=== PATIENT | female | born 1980 | race Native Hawaiian/Other Pacific Islander ===

== ENCOUNTER 2021-01-20 14:02 | Emergency (ER) | payer MEDICAID, SELFPAY ==
--- NOTE | ~2021-01-20 | CT_ITS ---
EXAMINATION: CT ABDOMEN AND PELVIS WITHOUT CONTRAST CLINICAL INFORMATION: Flank pain with history of stones COMPARISON: None TECHNIQUE: Multidetector volumetric imaging was performed from the superior aspect of the liver through the pubic symphysis. Sagittal and coronal reformatted images were obtained on the technologist's workstation. This CT examination was performed using dose optimization techniques as appropriate, variously including the following: *Automated exposure control *Adjustment of mA and/or kV according to patient size (this includes techniques or standardized protocols for targeted exams where dose is matched to indication/reason for exam; i.e. extremities or head) *Use of iterative reconstruction technique DLP: 632 mGy-cm FINDINGS: LUNG BASES: The visualized lung bases are unremarkable. Some minimal scarring is noted at the right lung base. LIVER, GALLBLADDER, AND BILIARY TREE: The liver is normal in size, shape, and attenuation. There is a tiny few millimeter-sized hepatic hypodensities seen which is consistent with a benign cyst. Even with its small size, Hounsfield units approach water. No worrisome solid focal hepatic lesion or biliary ductal dilatation is present. The gallbladder is unremarkable with no evidence of radiopaque gallstones, gallbladder wall thickening, or obvious pericholecystic inflammatory changes. PANCREAS: Unremarkable. SPLEEN: Unremarkable. ADRENAL GLANDS: A fat density 2.0 x 1.9 x 2.2 cm left adrenal mass is present consistent with a benign adenoma. There is no need for any further evaluation. The right adrenal gland appears normal. KIDNEYS AND URETERS: The kidneys are normal in size, shape, and attenuation. No hydronephrosis, hydroureter, or calculi seen. No perinephric stranding. BLADDER: Unremarkable. GASTROINTESTINAL TRACT: The small and large bowel are unremarkable. The appendix is unremarkable. ABDOMINAL WALL: No significant hernia is appreciated. LYMPH NODES: No retroperitoneal lymphadenopathy. Small right anterior preparacardiac lymph nodes within normal limits of size VASCULAR: Minimal calcific aortic plaque present. No aneurysm. PELVIC VISCERA: A normal anteverted uterus is present. An abnormal adnexal mass is not seen. No free intraperitoneal fluid is present. OSSEOUS STRUCTURES: Unremarkable. CT/CT abdomen pelvis wo con IMPRESSION: No renal calculi are present. A cause for the patient's flank pain has not been found.
[2021-01-20 14:52] VITALS: BP 107/86; PULSE 84; RESP 18; TEMP 36.2; O2SAT 99; BMI 32.2
[2021-01-20 15:45] LABS: Glucose Urine UA NEG (NEG); Leukocyte Esterase Urine NEG (NEG); Nitrite Urine NEG (NEG); Urine Blood 1+ (NEG); Urine Ketones NEG (NEG); Urine Protein NEG (NEG-TRACE)
[2021-01-20 15:47] LABS: Appearance Urine CLEAR; Color Urine YELLOW
[2021-01-20 16:00] VITALS: BP 111/68; PULSE 70; RESP 16; TEMP 37.1; O2SAT 99
[2021-01-20 16:02] LABS: MANUAL DIFF FLAG NO
[2021-01-20 16:09] LABS: Bacteria Urine TRACE /LPF; Mucus Urine TRACE /LPF; Squamous Epithelial Cell Urine 1+ /LPF
[2021-01-20 16:14] LABS: Basophils Absolute Auto 0.1 X10*3/uL (0.0-0.2); Basophils Percent Auto 0.4 % (0-2); Eosinophils Absolute Auto 0.3 X10*3/uL (0.0-0.4); Eosinophils Percent Auto 2.5 % (0-4); Hemoglobin 12.6 g/dl (12.0-16.0); Imm Gran Abs Auto 0.06 X10*3/uL (0.00-0.03); Imm Gran Pct Auto 0.5 % (0.0-0.4); Lymphocytes Absolute Auto 4.2 X10*3/uL (1.2-4.9); Lymphocytes Percent Auto 33.1 % (20-40); Mean Corpuscular HGB Conc 34.1 g/dl (31.0-35.0); Mean Corpuscular Volume 82.2 fL (80-98); Mean Platelet Volume 10.5 fL (9.4-12.3); Monocytes Percent Auto 7.8 % (2-11); Neutrophils Percent Auto 55.7 % (45-73); Platelet Count 238 X10*3/uL (160-400); Red Cell Distribution Width 14.7 % (11.0-16.0); White Blood Count 12.6 X10*3/uL (4.8-10.8)
--- NOTE | 2021-01-20 16:31 | ED.ABDPAIN ---
HPI - Abdominal Pain General Chief Complaint: General Medical Stated Complaint: Passing kidney stone Time Seen by Provider: 01/20/21 16:16 Source: patient Mode of arrival: ambulatory Limitations: no limitations History of Present Illness HPI narrative: Patient with history of kidney stone 10 years ago woke up at 03:00 with right flank pain related to the right lower abdomen with slight nausea no vomiting no diarrhea no hematuria no dysuria frequency no abdominal distension no fever chills no cough or shortness of breath Related Data Allergies Allergy/AdvReac Type Severity Reaction Status Date / Time codeine [Codeine] Allergy Unknown UNKNOWN Verified 01/20/21 14:51 sulfacetamide [Sulfacetamide] Allergy Unknown UNKNOWN Verified 01/20/21 14:51 Codeine Sulfate Allergy Unknown Palpitation Uncoded 01/20/21 14:51 s Sulfa Allergy Unknown Unknown Uncoded 01/20/21 14:51 Review of Systems Review of Systems Constitutional : No Weight loss, No Fever, No Chills ENT/Mouth : No sore throat, No Rhinorrhea Eyes: No Eye Pain, No Swelling Cardiovascular : No Chest Pain, no palpitations Respiratory : No Cough, No Sputum, no shortness of breath Gastrointestinal : + Nausea, No Vomiting, No Diarrhea, + abdominal Pain, no black stools Genitourinary : No Dysuria, No Urinary Frequency Musculoskeletal : No joint pain, No Myalgias, No Joint Swelling Skin : No Skin Lesions, No rash Neuro : No Weakness, No Numbness, No Dizziness, No Headache Psych : No Anxiety/Panic, No Depression Heme/Lymph: No Bruising, No Lymphadenopathy Endocrine : No Polyuria, No Polydipsia All other systems reviewed and are negative Physical Exam Vital Signs: Vital Signs: Last Vital Signs Temp 98.3 F 01/20/21 18:00 Pulse 71 01/20/21 18:00 Resp 16 01/20/21 18:00 BP 115/66 01/20/21 18:00 Pulse Ox 99 01/20/21 18:00 Body Mass Index 32.2 Appearance: Alert. Oriented X3. In mild distress. Eyes: PERRLA, No Nystagmus ENT: Pharynx normal. Oral Mucosa moist Neck: Normal inspection. Neck supple. CVS: Normal heart rate and rhythm. Pulses normal. Respiratory: No respiratory distress. Equal air entry bilateral, no wheezing/rales/rhonchi Abdomen: Soft and nontender. Bowel sounds are present, no mass palpable, moderate right CVA tenderness Skin: Skin warm and dry. Normal skin color. Normal skin turgor. Extremities: No lower extremity edema. No calf tenderness Neuro: Oriented X 3. No motor deficit. No sensory deficit.No cerebellar signs , cranial nerves II-XII intact MDM - Abdominal Pain MDM Narrative Medical decision making narrative: Patient's CT scan negative for any kidney stone urine showed few RBCs likely patient passed stone. Patient denies any significant pain now Lab Data Attestation: I reviewed the patient's lab results. Result diagrams: 01/20/21 15:58 01/20/21 15:58 Labs: Lab Results 01/20/21 01/20/21 01/20/21 Range/Units 15:28 15:58 15:58 WBC 12.6 H (4.8-10.8) X10*3/uL RBC 4.50 (4.20-5.50) X10*6/uL Hgb 12.6 (12.0-16.0) g/dl Hct 37.0 (37-47) % MCV 82.2 (80-98) fL MCH 28.0 (27.0-33.0) pg MCHC 34.1 (31.0-35.0) g/dl RDW 14.7 (11.0-16.0) % Plt Count 238 (160-400) X10*3/uL MPV 10.5 (9.4-12.3) fL Immature Gran % (Auto) 0.5 H (0.0-0.4) % Neut % (Auto) 55.7 (45-73) % Lymph % (Auto) 33.1 (20-40) % [place] % (Auto) 7.8 (2-11) % Eos % (Auto) 2.5 (0-4) % Baso % (Auto) 0.4 (0-2) % Lymph # (Auto) 4.2 (1.2-4.9) X10*3/uL [place] # (Auto) 1.0 (0.1-1.2) X10*3/uL Eos # (Auto) 0.3 (0.0-0.4) X10*3/uL Baso # (Auto) 0.1 (0.0-0.2) X10*3/uL Abs Immat Gran (auto) 0.06 H (0.00-0.03) X10*3/uL Absolute Neuts (auto) 7.0 (2.0-8.3) X10*3/uL Absolute Nucleated RBC 0.000 (0.0-0.012) X10*3/uL Nucleated RBC % (auto) 0.0 (0.0-0.2) /100WBC Hold Blue Top Sodium 138 (135-145) mmol/L Potassium 3.5 (3.3-5.1) mmol/L Chloride 105 (96-108) mmol/L Carbon Dioxide 25 (22-29) mmol/L Anion Gap 12 (12-20) BUN 11 (9-16) mg/dL Creatinine 0.64 (0.5-1.4) mg/dL Estim Creat Clear Calc 105.6 Estimated GFR > 60 Random Glucose 95 (60-115) mg/dL Calcium 8.9 (8.4-10.2) mg/dL Total Bilirubin < 0.2 (0.0-1.0) mg/dL AST 14 (5-31) U/L ALT 16 (0-31) U/L Alkaline Phosphatase 80 (39-117) U/L Total Protein 6.6 (6.5-8.0) g/dL Albumin 3.8 (3.5-5.0) g/dL Urine Color YELLOW Urine Appearance CLEAR Urine pH 6.0 (5.0-8.0) Ur Specific [place] 1.010 (1.005-1.025) Urine Protein NEG (NEG-TRACE) MG/DL Urine Glucose (UA) NEG (NEG) MG/DL Urine Ketones NEG (NEG) MG/DL Urine Blood 1+ H (NEG) Urine Nitrite NEG (NEG) Ur Leukocyte Esterase NEG (NEG) Urine RBC 1-4 (0) /HPF Urine WBC 1-4 (0-4) /HPF Ur Squamous Epith Cells 1+ /LPF Urine Bacteria TRACE /LPF Urine Mucus TRACE /LPF 01/20/21 Range/Units 15:58 WBC (4.8-10.8) X10*3/uL RBC (4.20-5.50) X10*6/uL Hgb (12.0-16.0) g/dl Hct (37-47) % MCV (80-98) fL MCH (27.0-33.0) pg MCHC (31.0-35.0) g/dl RDW (11.0-16.0) % Plt Count (160-400) X10*3/uL MPV (9.4-12.3) fL Immature Gran % (Auto) (0.0-0.4) % Neut % (Auto) (45-73) % Lymph % (Auto) (20-40) % [place] % (Auto) (2-11) % Eos % (Auto) (0-4) % Baso % (Auto) (0-2) % Lymph # (Auto) (1.2-4.9) X10*3/uL [place] # (Auto) (0.1-1.2) X10*3/uL Eos # (Auto) (0.0-0.4) X10*3/uL Baso # (Auto) (0.0-0.2) X10*3/uL Abs Immat Gran (auto) (0.00-0.03) X10*3/uL Absolute Neuts (auto) (2.0-8.3) X10*3/uL Absolute Nucleated RBC (0.0-0.012) X10*3/uL Nucleated RBC % (auto) (0.0-0.2) /100WBC Hold Blue Top SEE NOTE Sodium (135-145) mmol/L Potassium (3.3-5.1) mmol/L Chloride (96-108) mmol/L Carbon Dioxide (22-29) mmol/L Anion Gap (12-20) BUN (9-16) mg/dL Creatinine (0.5-1.4) mg/dL Estim Creat Clear Calc Estimated GFR Random Glucose (60-115) mg/dL Calcium (8.4-10.2) mg/dL Total Bilirubin (0.0-1.0) mg/dL AST (5-31) U/L ALT (0-31) U/L Alkaline Phosphatase (39-117) U/L Total Protein (6.5-8.0) g/dL Albumin (3.5-5.0) g/dL Urine Color Urine Appearance Urine pH (5.0-8.0) Ur Specific [place] (1.005-1.025) Urine Protein (NEG-TRACE) MG/DL Urine Glucose (UA) (NEG) MG/DL Urine Ketones (NEG) MG/DL Urine Blood (NEG) Urine Nitrite (NEG) Ur Leukocyte Esterase (NEG) Urine RBC (0) /HPF Urine WBC (0-4) /HPF Ur Squamous Epith Cells /LPF Urine Bacteria /LPF Urine Mucus /LPF Discharge Plan Discharge Clinical Impression: Acute right flank pain Patient Disposition: Home, Self-Care Instructions: Flank Pain (ED) Additional Instructions: Your CT scan is negative for kidney stones likely either uou had musculoskeletal pain or you passed stone take ibuprofen for pain as needed [facility] Social History Social History Alcohol intake: never Patient Tobacco Use Status: Never used Tobacco Smoked in Last 30 Days: No Use of substances other than those prescribed or required for medical reasons: No Advance Directives: No Advance Directives Information Provided: No Patient : No
[2021-01-20 16:37] LABS: Alanine Aminotransferase 16 U/L (0-31); Albumin Level 3.8 g/dL (3.5-5.0); Alkaline Phosphatase 80 U/L (39-117); Anion Gap 12 (12-20); Aspartate Amino Transferase 14 U/L (5-31); Bilirubin Total < 0.2 mg/dL (0.0-1.0); Blood Urea Nitrogen 11 mg/dL (9-16); Calcium 8.9 mg/dL (8.4-10.2); Carbon Dioxide 25 mmol/L (22-29); Chloride 105 mmol/L (96-108); Creatinine Clr Calc Pharmacy 105.6; Estimated Glomerular Filt Rate > 60; Glucose Random 95 mg/dL (60-115); Potassium 3.5 mmol/L (3.3-5.1); Sodium 138 mmol/L (135-145); Total Protein 6.6 g/dL (6.5-8.0)
[2021-01-20] MEDS: Ketorolac Tromethamine 30 MG/ML VIAL IVPUSH (17:18)
--- NOTE | 2021-01-20 17:18 | PC.NURSE ---
verbal order from dr swanson to hang IVF 1000ml ns.
[2021-01-20 18:00] VITALS: BP 115/66; PULSE 71; RESP 16; TEMP 36.8; O2SAT 99
== END 2021-01-20 18:55 | disposition home or self-care (01) ==
PROVIDERS: Emergency Provider Internal Medicine; PCP Pediatrics
DX: R10.9 Unspecified abdominal pain (principal); Z79.899 Other long term (current) drug therapy
CPT/HCPCS: 36415; 74176; 80053; 81001; 85025; 96372; 99284; J1885

== ENCOUNTER 2021-01-22 07:18 | Emergency (ER) | payer MEDICAID, SELFPAY ==
[2021-01-22 07:36] VITALS: BP 134/87; PULSE 76; RESP 16; TEMP 36.6; O2SAT 97; BMI 32.2
--- NOTE | 2021-01-22 07:39 | ED.EXTPRO ---
HPI - Extremity Problem General Chief complaint: Extremity Injury, Upper Stated complaint: R SHOULDER PAIN Time Seen by Provider: 01/22/21 07:36 Source: patient Mode of arrival: ambulatory Limitations: no limitations History of Present Illness HPI Narrative: R neck pain since last night feels similar to prior pinched nerve in neck a few years back from injury - no injury this time, here reporting pain MD Complaint: other (neck pain radiating into shoulder) Onset (ago): day(s) (2) Pain Consistency: constant Location: other (right neck) Quality: stabbing Radiation: distal Relieving factors: nothing Exacerbating factors: range of motion and palpation Associated symptoms: denies other symptoms Context: other (hx of pinched nerve in the past) Related Data Previous Rx's Medication Instructions Recorded diazepam [Valium] 5 mg PO TID PRN #10 tab 01/22/21 ibuprofen 600 mg PO Q6H PRN #30 tab 01/22/21 lidocaine 1 patch TOPICAL DAILY PRN #10 ea 01/22/21 Allergies Allergy/AdvReac Type Severity Reaction Status Date / Time codeine [Codeine] Allergy Unknown UNKNOWN Verified 01/20/21 14:51 sulfacetamide [Sulfacetamide] Allergy Unknown UNKNOWN Verified 01/20/21 14:51 Codeine Sulfate Allergy Unknown Palpitation Uncoded 01/20/21 14:51 s Sulfa Allergy Unknown Unknown Uncoded 01/20/21 14:51 Review of Systems Review of Systems: Constitutional : No Fever, No Chills ENT/Mouth : No Ear Pain, No Hoarseness, No sore throat, pos R sided neck pain Eyes: No Eye Pain, No Swelling, No Redness, No Foreign Body Cardiovascular : No Chest Pain, No SOB Respiratory : No Cough, No Dyspnea Gastrointestinal : No Nausea, No Vomiting, No Diarrhea, No abdominal Pain Genitourinary : No Dysuria, No Hematuria Musculoskeletal : no joint pain, No Myalgias, No Joint Swelling Skin : No Skin lacerations, No rash Neuro : No Weakness, No Numbness, No Loss of Consciousness, No Dizziness, No Headache PMFSH Past Medical History Attestation statement: The following information was validated with the patient. Medical History Asthma Social History Social History Alcohol intake: never Patient Tobacco Use Status: Never used Tobacco Advance Directives: Yes Advance Directives Information Provided: Yes Advance Directives on File: No Physical Exam Vital Signs: Vital Signs: Last Vital Signs Temp 97.9 F 01/22/21 07:36 Pulse 76 01/22/21 07:36 Resp 16 01/22/21 07:36 BP 134/87 01/22/21 07:36 Pulse Ox 97 01/22/21 07:36 Body Mass Index 32.2 Appearance: Alert. Oriented X3. No acute distress. Eyes: Pupils equal, round and reactive to light. ENT: Pharynx normal. Neck: R sided neck pain with spasm of trapezius, distal NV intact, no mass felt, R sided + spurlings CVS: Normal heart rate and rhythm. Pulses normal. Respiratory: No respiratory distress. Breath sounds normal. Abdomen: Soft and nontender. Skin: Skin warm and dry. Normal skin color. Normal skin turgor. Extremities: No lower extremity edema. No calf ttp Neuro: Oriented X 3. No motor deficit. No sensory deficit. MDM - Extremity (Nontraumatic) MDM Narrative Medical decision making narrative: 40 yo female with asthma, prior R sided cervical radiculopathy one day of R sided neck pain, NV intact no trauma no deficits, pain control refer to PCP for MRI if no improvement Discharge Plan Discharge Clinical Impression: Cervical radiculopathy Patient Disposition: Home, Self-Care Instructions: Cervical Radiculopathy (ED) Additional Instructions: return to ED for any worsening symptoms or concerns Prescriptions: New lidocaine 4 % adhesive patch,medicated 1 patch topical DAILY PRN (Reason: pain) Qty: 10 RF: 0 ibuprofen 600 mg tablet 600 mg PO Q6H PRN (Reason: pain) Qty: 30 RF: 0 diazepam [Valium] 5 mg tablet 5 mg PO TID PRN (Reason: muscle spasm) Qty: 10 RF: 0 Referrals: Dina Cartagena MD [Primary Care Provider] - 5 days (if not better) Stand Alone Forms: Work/School Release
[2021-01-22] MEDS: Ketorolac Tromethamine 60 MG/2 ML VIAL IM (07:43)
[2021-01-22] MEDS: Lidocaine 4 % Patch ADH..PATCH 1 PATCH TRANSDERMA (07:43)
[2021-01-22] MEDS: diazePAM 5 MG TABLET PO (07:43)
== END 2021-01-22 07:57 | disposition home or self-care (01) ==
PROVIDERS: Emergency Provider Emergency Medicine; PCP Pediatrics
DX: M54.12 Radiculopathy, cervical region (principal); J45.909 Unspecified asthma, uncomplicated
CPT/HCPCS: 96372; 99283; 99284; J1885

== ENCOUNTER 2021-05-11 15:07 | Outpatient (REF) | payer MEDICAID, SELFPAY ==
--- NOTE | ~2021-05-11 | MM_ITS ---
EXAMINATION: MM SCREENING DIGITAL BREAST TOMOSYNTHESIS, BILATERAL CLINICAL INFORMATION: Screening. Asymptomatic. Patient's mother and grandmother with history of breast cancer. The lifetime risk of breast cancer based on the Tyrer-Cuzick Model is 21.7%. Additional annual screening with breast MRI may be of benefit in women with a Score of 20% or greater. COMPARISON: Mammography: None TECHNIQUE: Digital breast tomosynthesis is performed in both the craniocaudal and mediolateral oblique views along with computer-aided detection (CAD). Synthesized 2D images are generated from the tomosynthesis. FINDINGS: The breasts are extremely dense, which lowers the sensitivity of mammography (ACR BI-RADS breast composition Category d). No abnormal dominant mass or suspicious grouping of microcalcifications is identified within the right breast. Within the deep lateral aspect of the left breast, there is a circumscribed approximately 8 x 5 mm density approximately 6 cm from the nipple. MM/MM tomosynthesis screening BI IMPRESSION: Left breast density for which spot compression film and possible ultrasound are recommended. ASSESSMENT: BI-RADS 0: Incomplete - Need Additional Imaging Evaluation RECOMMENDATION: 1. Additional views of the left breast. 2. Targeted ultrasound if warranted after review of the additional views. 3. Radiology department staff will contact the patient for additional imaging. This patient's information was entered into a reminder system with a target due date for their next mammogram.
== END 2021-05-11 15:08 | disposition home or self-care (01) ==
LOC: HO.MAMMO 15:07
PROVIDERS: PCP Pediatrics; Visit Provider Advanced Practice Midwife
DX: Z12.31 Encounter for screening mammogram for malignant neoplasm of breast (principal)
CPT/HCPCS: 77063; 77067

== ENCOUNTER 2021-05-25 13:20 | Emergency (ER) | payer MEDICAID, SELFPAY ==
[2021-05-25 13:23] VITALS: BP 152/93; PULSE 86; RESP 16; TEMP 36.8; O2SAT 100; BMI 31.8
--- NOTE | 2021-05-25 14:03 | ED.FEMALEGU ---
HPI - Female Genitourinary General Chief complaint: Urogenital-Female Stated complaint: ?std Time Seen by Provider: 05/25/21 13:44 Source: patient Mode of arrival: ambulatory Limitations: no limitations History of Present Illness HPI Narrative: 40-year-old female here with complaints of vaginal discharge for 24 hours. No pelvic pain or urinary symptoms. No fevers or chills. Patient has history of bacterial vaginosis and feels this may be similar. She was tested 1 month ago for all STDs and negative. She has 1 male partner. Related Data Previous Rx's Medication Instructions Recorded diazepam 5 mg tablet (Valium) 5 mg PO TID PRN #10 tab 01/22/21 ibuprofen 600 mg tablet 600 mg PO Q6H PRN #30 tab 01/22/21 lidocaine 4 % topical patch 1 patch TOPICAL DAILY PRN #10 ea 01/22/21 Allergies Allergy/AdvReac Type Severity Reaction Status Date / Time codeine [Codeine] Allergy Unknown UNKNOWN Verified 01/20/21 14:51 sulfacetamide [Sulfacetamide] Allergy Unknown UNKNOWN Verified 01/20/21 14:51 Codeine Sulfate Allergy Unknown Palpitation Uncoded 01/20/21 14:51 s Sulfa Allergy Unknown Unknown Uncoded 01/20/21 14:51 Review of Systems Review of Systems: Yes all other systems are reviewed and are negative Constitutional: Constitutional: Reports no additional constitutional complaints, Denies body ache(s), Denies chills, Denies fever(s), Denies headache(s) and Denies weakness Eyes: Eyes: Reports no additional eye complaints and Denies change in vision ENT: Reports system reviewed and no additional complaints, except as documented, Denies dizziness, Denies headache(s), Denies nasal congestion, Denies nasal discharge and Denies neck pain Cardiovascular: Cardiovascular: Reports no additional cardiovascular complaints, Denies chest pain, Denies leg edema and Denies dyspnea Respiratory: Respiratory: Reports no additional respiratory complaints, Denies cough and Denies dyspnea Gastrointestinal: Gastrointestinal: Reports no additional gastrointestinal complaints, Denies abdominal pain, Denies diarrhea, Denies nausea and Denies vomiting Genitourinary: Genitourinary: Reports no additional female genitourinary complaints, Denies pelvic pain, Denies urinary incontinence and Reports vaginal discharge Musculoskeletal: Musculoskeletal: Reports no additional musculoskeletal complaints, Denies back pain, Denies arthralgias, Denies joint swelling, Denies neck pain, Denies numbness and Denies tingling Integumentary/Breasts: Skin/Breast: Reports system reviewed and no additional complaints, except as docu and Denies rash Neurologic: Reports system reviewed and no additional complaints, except as documented, Denies Abnormal speech present, Denies dizziness, Denies headache(s), Denies numbness, Denies tingling and Denies weakness PMFSH Past Medical History Attestation statement: The following information was validated with the patient. Source: old records reviewed and nursing notes reviewed Medical History Asthma Social History Social History Alcohol intake: never Patient Tobacco Use Status: Never used Tobacco Advance Directives: No Advance Directives Information Provided: No Physical Exam Vital Signs: Vital Signs: Last Vital Signs Temp 98.2 F 05/25/21 13:23 Pulse 86 05/25/21 13:23 Resp 16 05/25/21 13:23 BP 152/93 H 05/25/21 13:23 Pulse Ox 100 05/25/21 13:23 Body Mass Index 31.8 Const: General: cooperative, healthy appearing, comfortable and no acute distress Orientation/consciousness: patient oriented x3 Limitations: no limitations HENMT: Head: Yes normal to inspection Ears: hearing grossly normal bilaterally General nose exam: Normal external nose present Face and sinus: Yes normal facial exam Mouth: Normal oral and palatal mucosa present Throat: Yes posterior oropharynx normal Eyes: General: appearance normal, both eyes and all related structures Pupils: Equal, round and reactive pupils present Neck: Neck: Yes normal visual inspection Chest: Chest palpation & inspection: normal inspection of the chest Resp: Effort & Inspection: normal respiratory effort Auscultation: clear to auscultation bilaterally Cardio: Rate: regular rate Rhythm: regular rhythm Peripheral pulses: Peripheral pulses 2+ throughout GI: Inspection: Yes normal to inspection Palpation (GI): Soft to palpation and nontender Auscultation: normal bowel sounds : Other: deferred by patient Back/Spine/Pelvis: Thoracic/Lumbar Spine: thoracic and lumbar spine normal to inspection Skin: General skin exam: no rashes or lesions noted Neuro: General: patient oriented x3, no focal motor deficits and normal sensation to monofilament Cranial nerves: Yes Equal, round and reactive pupils present Cognition (Neuro): normal cognition Speech: No Abnormal speech present Gait exam (Neuro): Normal gait present Motor exam (neuro): 5/5 motor strength present throughout Extrem: General: Yes normal to inspection Course Course Course Narrative: Vaginal discharge for 24 hours. Less concerned about STDs but will test. Will hold on treatment for STDs and patient is aware she will need to return for treatment if positive. Reviewed worrisome signs and symptoms of when to return to the emergency department. Comfortable discharge home. MDM - Female Genitourinary Medical Records Attestation: I reviewed the patient's medical records. Lab Data Attestation: I reviewed the patient's lab results. Labs: Lab Results 05/25/21 05/25/21 Range/Units 14:04 14:04 Urine Color STRAW Urine Appearance CLEAR Urine pH 6.0 (5.0-8.0) Ur Specific [place] <= 1.005 (1.005-1.025) Urine Protein NEG (NEG-TRACE) MG/DL Urine Glucose (UA) NEG (NEG) MG/DL Urine Ketones NEG (NEG) MG/DL Urine Blood 1+ H (NEG) Urine Nitrite NEG (NEG) Ur Leukocyte Esterase NEG (NEG) Urine Test NEGATIVE (NEGATIVE) Discharge Plan Discharge Clinical Impression: Vaginal discharge Patient Disposition: Home, Self-Care Instructions: Vaginal Discharge (ED) Additional Instructions: We will call you tomorrow if positive results Prescriptions: No Action lidocaine 4 % adhesive patch,medicated 1 patch topical DAILY PRN (Reason: pain) Qty: 10 RF: 0 ibuprofen 600 mg tablet 600 mg PO Q6H PRN (Reason: pain) Qty: 30 RF: 0 diazepam [Valium] 5 mg tablet 5 mg PO TID PRN (Reason: muscle spasm) Qty: 10 RF: 0 Referrals: Dina Cartagena MD [Primary Care Provider] - 2 days Interventions: ED Discharge Assessment Last Done: 05/25/21 14:22 Discharge Date/Time: 05/25/21 14:22
[2021-05-25 14:12] LABS: Appearance Urine CLEAR; Color Urine STRAW; Glucose Urine UA NEG (NEG); Leukocyte Esterase Urine NEG (NEG); Nitrite Urine NEG (NEG); Specific Gravity - Urine <= 1.005 (1.005-1.025); UACC Culture Trigger NO; Urine Blood 1+ (NEG); Urine Ketones NEG (NEG); Urine Protein NEG (NEG-TRACE)
[2021-05-25 14:16] LABS: UPreg QC Valid YES; Urine Pregnancy NEGATIVE (NEGATIVE)
[2021-05-25 14:32] LABS: RBC Urine 0-2 /HPF (0); Squamous Epithelial Cell Urine TRACE /LPF; WBC Urine 0-2 /HPF (0-4)
[2021-05-26 05:34] LABS: CT PCR NOT DETECTED (Not Detect.); NG PCR NOT DETECTED (Not Detect.)
[2021-05-26 09:45] LABS: BV Int Neg Control Negative (Negative); BV Int Pos Control Positive (Positive)
== END 2021-05-25 14:22 | disposition home or self-care (01) ==
PROVIDERS: Nurse Practitioner Family; Emergency Provider Emergency Medicine; PCP Pediatrics
DX: N89.8 Other specified noninflammatory disorders of vagina (principal); Z79.899 Other long term (current) drug therapy; Z20.2 Contact with and (suspected) exposure to infections with a predominantly sexual mode of transmission
CPT/HCPCS: 81001; 81025; 87480; 87491; 87510; 87591; 87660; 99283; 99284

== ENCOUNTER 2021-05-28 13:48 | Outpatient (REF) | payer MEDICAID, SELFPAY ==
--- NOTE | ~2021-05-28 | MM_ITS ---
EXAMINATION: MM DIAGNOSTIC DIGITAL BREAST TOMOSYNTHESIS, LEFT CLINICAL INFORMATION: Recall from baseline mammography for question of smooth nodular asymmetry posterior central 3:00 left breast on CC view. Family history breast cancer mother (age 35) and grandmother. TC score 22%. COMPARISON: Mammography: 05/11/2021 (baseline) TECHNIQUE: Digital breast tomosynthesis is performed. 2D images are generated from the tomosynthesis. The following views are obtained: Rolled CC x2, spot CC FINDINGS: The breasts are heterogeneously dense, which may obscure small masses (ACR BI-RADS breast composition Category c). Breast tissue composition borders on extremely dense. The additional views show no focal mass or architectural abnormality. Results are discussed with the patient at time of visit. Additional adjunct screening with breast MRI discussed with the patient as well as genetic testing. MM/MM tomosynthesis added views L IMPRESSION: Additional views show no mass or architectural abnormality. ASSESSMENT: BI-RADS 1: Negative RECOMMENDATION: 1. Given the family history and dense breast parenchymal pattern, additional adjunct screening with breast MR should be considered as well as genetic testing. 2. Otherwise, routine annual screening mammography. This patient's information was entered into a reminder system with a target due date for their next mammogram.
== END 2021-05-28 13:49 | disposition home or self-care (01) ==
LOC: HO.MAMMO 13:48
PROVIDERS: PCP Pediatrics; Visit Provider Advanced Practice Midwife
DX: R92.2 Inconclusive mammogram (principal)
CPT/HCPCS: 77061; 77065

== ENCOUNTER 2022-04-24 12:53 | Emergency (ER) | payer MEDICAID, SELFPAY ==
--- NOTE | ~2022-04-24 | XR_ITS ---
EXAMINATION: XR KNEE, RIGHT CLINICAL INFORMATION: Pain COMPARISON: None TECHNIQUE: Four views of the right knee. FINDINGS: Bones and soft tissues are normal. No fracture or joint effusion. Alignment is anatomic. Joint spaces are well maintained. No abnormal soft tissue calcification. XR/XR knee RT 4V IMPRESSION: No significant osseous changes to explain patient's pain symptoms.
[2022-04-24 13:00] VITALS: BP 136/88; PULSE 91; RESP 17; TEMP 36.6; O2SAT 98; BMI 32.8
--- NOTE | 2022-04-24 13:50 | ED.LOWEXIN ---
HPI - Extremity Injury (Lower) General Chief Complaint: Extremity Injury, Lower Stated Complaint: R knee pain Time Seen by Provider: 04/24/22 13:42 Source: patient Mode of arrival: ambulatory Limitations: no limitations History of Present Illness HPI Narrative: 41-year-old female presenting to the ED with complaints of right knee pain for the past few weeks worse when going up the stairs or going down the stairs. She reports that a few weeks ago while she was at work she was walking and she reports she believes she may return to quickly where she felt like the rest of her body turned and her right knee did not and since then she has been having pain. She denies any falls. She denies any swelling of the knee, she denies any fevers, dizziness, headaches, neck pain/stiffness, chest pain or shortness back on the dyspnea on exertion, orthopnea, palpitations, paresthesias, lower extremity edema or calf tenderness, recent travel or sick contacts, recent falls or trauma to the site, rashes, weakness or any other symptoms complaints or concerns at this time. MD complaint: knee injury Onset (ago): week(s) (Few weeks ago) Type of Injury: unknown Place: work Severity: moderate Relieving factors: nothing Exacerbating factors: movement, palpation and other (Walking up and down the stairs) Context: other (twist sensation ) Associated symptoms: snap/pop sensation and ambulatory Other symptoms: none Treatments prior to arrival: cold therapy, heat therapy and other (Motrin Tylenol no symptomatic relief) Related Data Previous Rx's Medication Instructions Recorded diazepam 5 mg tablet (Valium) 5 mg PO TID PRN muscle spasm #10 01/22/21 tabs ibuprofen 600 mg tablet 600 mg PO Q6H PRN pain #30 tabs 01/22/21 lidocaine 4 % topical patch 1 patch topical DAILY PRN pain #10 01/22/21 ea acetaminophen 650 mg 650 mg PO Q12H PRN pain #14 tabs 04/24/22 tablet,extended release (Arthritis Pain Relief (acetaminophen) ER) ibuprofen 800 mg tablet 800 mg PO Q8H PRN pain #14 tabs 04/24/22 tramadol 50 mg tablet 50 mg PO BID PRN pain #14 tabs 04/24/22 Allergies Allergy/AdvReac Type Severity Reaction Status Date / Time codeine [Codeine] Allergy Unknown UNKNOWN Verified 01/20/21 14:51 sulfacetamide [Sulfacetamide] Allergy Unknown UNKNOWN Verified 01/20/21 14:51 Codeine Sulfate Allergy Unknown Palpitation Uncoded 01/20/21 14:51 s Sulfa Allergy Unknown Unknown Uncoded 01/20/21 14:51 Review of Systems Review of Systems: Constitutional : No Weight loss, No Fever, No Chills, No Night Sweats, No Fatigue, No Malaise ENT/Mouth : No Hearing loss, No Ear Pain, No Nasal Congestion, No Sinus Pain, No Hoarseness, No sore throat, No Rhinorrhea, No Swallowing Difficulty Eyes: No Eye Pain, No Swelling, No Redness, No Foreign Body, No Discharge, No Vision Changes Cardiovascular : No Chest Pain, No SOB, No Dyspnea on Exertion, No Orthopnea, No Edema, No Palpitations Respiratory : No Cough, No Sputum, No Wheezing, No Smoke Exposure, No Dyspnea Gastrointestinal : No Nausea, No Vomiting, No Diarrhea, No Constipation, No abdominal Pain, No Hematochezia, No Melena Genitourinary : no irregular bleeding, No Dysuria, No Urinary Frequency, No Hematuria, No Urinary Incontinence, No Urgency, No Flank Pain, No Urinary Flow Changes, No Hesitancy Musculoskeletal : + right knee joint pain, No Myalgias, No Joint Swelling Skin : No Skin Lesions, No rash Neuro : No Weakness, No Numbness, No Paresthesias, No Loss of Consciousness, No Dizziness, No Headache Psych : No Anxiety/Panic, No Depression, No SI/HI/AH/VH, No Social Issues, Heme/Lymph: No Bruising, No Bleeding,No Lymphadenopathy Endocrine : No Polyuria, No Polydipsia, No Temperature Intolerance Yes all other systems are reviewed and are negative [facility] Past Medical History Attestation statement: The following information was validated with the patient. Source: old records reviewed and nursing notes reviewed Medical History Asthma Social History Social History Alcohol intake: never Patient Tobacco Use Status: Never used Tobacco Advance Directives: No Advance Directives Information Provided: Yes Physical Exam Vital Signs: Vital Signs: Last Vital Signs Temp 98 F 04/24/22 13:00 Pulse 91 04/24/22 13:00 Resp 17 04/24/22 13:00 BP 136/88 04/24/22 13:00 Pulse Ox 98 04/24/22 13:00 O2 Del Method 04/24/22 13:00 BMI result Body Mass Index 32.8 vital signs have been reviewed as normal and appeared to be correct. Blood pressure normal. Heart rate normal. Respiration rate normal. Temperature normal. Oxygen saturation normal. Appearance: Alert. Oriented X3. No acute distress. Head: Normal external exam. Normocephalic. Atraumatic. Eyes: PERRLA. EOMI. Conjunctiva and sclera normal. Eyelids normal. ENT: Pharynx normal. Uvula midline. Moist mucous membranes. No lesions/ulcerations or masses noted on the tongue. Normal voice. No trismus noted. No drooling noted. No muffled voice noted. Neck: Normal inspection. Neck supple. FROM. No adenopathy. Thyroid Normal. No tracheal deviation noted. No crepitus is noted. No meningeal signs. No neck mass noted. CVS: Normal heart rate and rhythm. Heart sound normal. Pulses normal throughout. No murmurs/rales/gallops. Respiratory: No respiratory distress. Painless inspiration. Breath sounds normal. No wheezes/rales/rhonchi noted. Chest nontender. No crepitus is noted. No accessory muscle usage noted or decreased air movement noted. No signs of trauma. Back: Full range of motion noted. Skin: Skin warm and dry. Normal skin color. Normal skin turgor. No rashes/lesions/lacerations noted. Extremities: Patient mild tenderness palpation to medial and lateral aspect of the right knee with mild soft tissue swelling no obvious joint effusion or obvious ligamentous or tendon injury noted. Not consistent with muscle rupture. She has full range of motion of the right knee. No laxity noted. No lower extremity edema or calf tenderness noted. No rashes noted. No signs of trauma noted. Otherwise all other extremities exhibit normal range of motion nontender. Neuro: Oriented X 3. No motor deficit. No sensory deficit. Reflexes normal. Normal steady gait. No focal neuro deficits noted. CN's II-XII intact bilaterally? Vascular: + radial pulses/+ 2 distal pedal pulses/+2 dorsalis pedis b/l. Normal cap refill. No cyanosis noted to upper extremity nails and lower extremity toes nails. Course Course Course Narrative: 41-year-old female presenting to the ED with complaints of right knee pain for the past few weeks worse when going up the stairs or going down the stairs. She reports that a few weeks ago while she was at work she was walking and she reports she believes she may return to quickly where she felt like the rest of her body turned and her right knee did not and since then she has been having pain. On exam she has full range of motion. X-ray negative for any acute processes. I explained to her if symptoms persist for longer than 2-3 weeks then she should follow-up with her PCP for possible physical therapy and Orthopedics for further evaluation treatment. Will place an Zoran wrap and treat symptomatically with instructions return if any new or worsening symptoms. Patient understands agrees with this plan. MDM - Extremity Injury (Lower) Medical Records Attestation: I reviewed the patient's medical records. Imaging Data Right knee x-ray: Attestation: I personally reviewed and interpreted this imaging study as follows: Radiologist's impression: FINDINGS: Bones and soft tissues are normal. No fracture or joint effusion. Alignment is anatomic. Joint spaces are well maintained. No abnormal soft tissue calcification.? XR/XR knee RT 4V IMPRESSION: No significant osseous changes to explain patient's pain symptoms. Procedures Orthopedic Splinting/Casting Injury #1: Side: right Lower Extremity Injury Location: knee Lower Extremity Immobilizer: Zoran wrap Discharge Plan Discharge Clinical Impression: Right knee sprain Patient Disposition: Home, Self-Care Instructions: Knee Sprain (ED), How to Use an Elastic Bandage (ED) Prescriptions: New ibuprofen 800 mg tablet 800 mg PO Q8H PRN (Reason: pain) Qty: 14 0RF acetaminophen [Arthritis Pain Relief (acetam)] 650 mg tablet extended release 650 mg PO Q12H PRN (Reason: pain) Qty: 14 0RF tramadol 50 mg tablet 50 mg PO BID PRN (Reason: pain) Qty: 14 0RF No Action lidocaine 4 % adhesive patch,medicated 1 patch topical DAILY PRN (Reason: pain) Qty: 10 0RF Rx Instructions: may leave on for up to 12 hrs ibuprofen 600 mg tablet 600 mg PO Q6H PRN (Reason: pain) Qty: 30 0RF diazepam [Valium] 5 mg tablet 5 mg PO TID PRN (Reason: muscle spasm) Qty: 10 0RF Referrals: Dina Cratagena MD [Primary Care Provider] - 1 week (For physical therapy referral for right knee pain) Sam Shafer MD [Physician] - 2 weeks (Make a follow-up appointment in 2-3 weeks if symptoms persist for longer than 2 weeks)
== END 2022-04-24 14:10 | disposition home or self-care (01) ==
PROVIDERS: Emergency Provider Emergency Medicine; PCP Pediatrics
DX: S83.91XA Sprain of unspecified site of right knee, initial encounter (principal); X58.XXXA Exposure to other specified factors, initial encounter; Y93.9 Activity, unspecified; Y92.9 Unspecified place or not applicable; Y99.9 Unspecified external cause status; Z79.899 Other long term (current) drug therapy
CPT/HCPCS: 29505; 73564; 99283

== ENCOUNTER 2022-05-14 10:22 | Outpatient (REF) | payer MEDICAID, SELFPAY ==
--- NOTE | ~2022-05-14 | MM_ITS ---
EXAMINATION: MM SCREENING DIGITAL BREAST TOMOSYNTHESIS, BILATERAL CLINICAL INFORMATION: Screening. Asymptomatic. Family history breast cancer, mother. At time of appointment, patient notes palpable concern anterior inferior left breast. Exam performed on weekend screening. The lifetime risk of breast cancer based on the Tyrer-Cuzick Model is 16%. COMPARISON: Mammography: 05/28/2021, 05/11/2021 (baseline). TECHNIQUE: Digital breast tomosynthesis is performed in both the craniocaudal and mediolateral oblique views along with computer-aided detection (CAD). Synthesized 2D images are generated from the tomosynthesis. Additional left CC and left ML views are obtained with symptom marker. FINDINGS: The breasts are heterogeneously dense, which may obscure small masses (ACR BI-RADS breast composition Category c). There are no significant masses, abnormal calcifications, or other abnormalities. No skin thickening or coarsening of the Ezio's ligaments. The axilla are unremarkable. Patient will be recalled to obtain additional imaging for the palpable concern. MM/MM tomosynthesis screening BI IMPRESSION: No significant change from prior exam. ASSESSMENT: BI-RADS 0: Incomplete - Need Additional Imaging Evaluation RECOMMENDATION: 1. Additional views of the left breast for palpable concern (spot CC, spot ML). 2. Targeted ultrasound left breast. 3. Radiology department staff will contact the patient for additional imaging. This patient's information was entered into a reminder system with a target due date for their next mammogram.
== END 2022-05-14 10:23 | disposition home or self-care (01) ==
LOC: HO.MAMMO 10:22
PROVIDERS: PCP Pediatrics; Visit Provider Pediatrics
DX: Z12.31 Encounter for screening mammogram for malignant neoplasm of breast (principal)
CPT/HCPCS: 77062; 77063; 77066; 77067

== ENCOUNTER 2022-05-18 13:42 | Outpatient (REF) | payer MEDICAID, SELFPAY ==
--- NOTE | ~2022-05-18 | MM_ITS ---
EXAMINATION: MM DIAGNOSTIC DIGITAL BREAST TOMOSYNTHESIS, LEFT US DIAGNOSTIC ULTRASOUND BREAST, LEFT CLINICAL INFORMATION: Palpable concern anterior inferior left breast noted by patient. Family history premenopausal breast cancer, mother. TC score 16%. COMPARISON: Mammography: 05/14/2022, 05/28/2021, 05/11/2021 (baseline). TECHNIQUE: Digital breast tomosynthesis is performed. 2D images are generated from the tomosynthesis. The following views are obtained: Spot CC, spot ML. Ultrasound left breast is targeted to the area of clinical concern inferior anterior breast. Patient is able to point to area of concern at time of imaging. Grayscale imaging and color Doppler are performed without and with harmonics. FINDINGS: The breasts are heterogeneously dense, which may obscure small masses (ACR BI-RADS breast composition Category c). The additional spot views show no underlying mass or architectural abnormality. No developing density. Ultrasound left breast demonstrates no cystic or solid mass, architectural abnormality, or focal duct ectasia. No skin thickening or edema tracking in soft tissue planes. Results and management options are discussed with the patient at time of visit. Availability of genetic testing also discussed. MM/MM tomosynthesis added views L IMPRESSION: -No mammographic or ultrasound evidence of malignancy. -No imaging correlate for patient's clinical concern. ASSESSMENT: BI-RADS 1: Negative RECOMMENDATION: 1. Patient should be managed based on the clinical impression. If clinically indicated, further evaluation may be considered with surgical consult. Decision to proceed with biopsy should be based on clinical grounds and degree of clinical concern. 2. Otherwise, routine annual screening mammography. This patient's information was entered into a reminder system with a target due date for their next mammogram.
== END 2022-05-18 13:43 | disposition home or self-care (01) ==
LOC: HO.MAMMO 13:42
PROVIDERS: PCP Pediatrics; Visit Provider Pediatrics
DX: R92.2 Inconclusive mammogram (principal)
CPT/HCPCS: 76642; 77061; 77065

== ENCOUNTER 2022-12-19 17:37 | Emergency (ER) | payer MEDICAID, SELFPAY ==
--- NOTE | ~2022-12-19 | US_ITS ---
EXAMINATION: US PELVIC AND TRANSVAGINAL CLINICAL INFORMATION: Heavy vaginal bleeding. Last menstrual period 12/05/2022. COMPARISON: Ultrasound dated 11/17/2022. TECHNIQUE: Ultrasound of the pelvis is performed using both transabdominal and transvaginal transducers along with Doppler. Transvaginal imaging is performed due to inadequate visualization transabdominally. FINDINGS: UTERUS: The uterus is anteverted and measures 8.6 x 4.6 x 3.3 cm. No focal endometrial or myometrial abnormalities. Homogeneous secretory phase endometrium measures 9 mm in thickness. The uterus is smooth in contour and has normal myometrial echogenicity. No visible fibroid. ADNEXA: Both ovaries are visualized. There is normal color flow to the adnexa. There is no ovarian torsion. There is no pelvic ascites or fluid collection. A normal dominant follicle within the right ovary measures 1.9 cm. Right ovary measures 3 x 1.8 x 2.3 cm. No suspicious abnormalities. Left ovary measures 2.3 x 1.7 x 2.1 cm. No suspicious abnormalities. No appreciable intraperitoneal free fluid. US/US pelvic and transvaginal IMPRESSION: Normal pelvic ultrasound.
[2022-12-19 17:46] VITALS: BP 148/94; PULSE 92; RESP 18; TEMP 36.8; O2SAT 98; BMI 35.2
--- NOTE | 2022-12-19 17:47 | ED_ITS ---
HPI - Female Genitourinary General Chief complaint: Vaginal Bleeding <ALO Hernandez - Last Filed: 12/19/22 17:50> Stated complaint: vaginal bleeding <ALO Hernandez - Last Filed: 12/19/22 17:50> Time Seen by Provider: 12/20/22 00:02 <ALO Hernandez - Last Filed: 12/19/22 17:50> Source: patient <Indra Najera MD - Last Filed: 12/20/22 02:39> Mode of arrival: ambulatory <Indra Najera MD - Last Filed: 12/20/22 02:39> Limitations: no limitations <Indra Najera MD - Last Filed: 12/20/22 02:39> History of Present Illness HPI Narrative: patient with heavy vaginal bleeding for 1 week. Patient has had continuous bleeding that they thought might be due to uterine polyp. <Indra Najera MD - Last Filed: 12/20/22 02:39> MD elicited complaint: vaginal bleeding <Indra Najera MD - Last Filed: 12/20/22 02:39> Related Data Home medications: Previous Rx's Medication Instructions Recorded diazepam 5 mg tablet (Valium) 5 mg PO TID PRN muscle spasm #10 01/22/21 tabs ibuprofen 600 mg tablet 600 mg PO Q6H PRN pain #30 tabs 01/22/21 lidocaine 4 % topical patch 1 patch topical DAILY PRN pain #10 01/22/21 ea acetaminophen 650 mg 650 mg PO Q12H PRN pain #14 tabs 04/24/22 tablet,extended release (Arthritis Pain Relief (acetaminophen) ER) ibuprofen 800 mg tablet 800 mg PO Q8H PRN pain #14 tabs 04/24/22 tramadol 50 mg tablet 50 mg PO BID PRN pain #14 tabs 04/24/22 <ALO Hernandez - Last Filed: 12/19/22 17:50> Allergies/Adverse reactions: Allergies Allergy/AdvReac Type Severity Reaction Status Date / Time codeine [Codeine] Allergy Unknown UNKNOWN Verified 12/19/22 17:50 sulfacetamide [Sulfacetamide] Allergy Unknown UNKNOWN Verified 12/19/22 17:50 Codeine Sulfate Allergy Unknown Palpitation Uncoded 01/20/21 14:51 s Sulfa Allergy Unknown Unknown Uncoded 01/20/21 14:51 <ALO Hernandez - Last Filed: 12/19/22 17:50> Review of Systems Review of Systems: Yes all other systems are reviewed and are negative <Indra Najera MD - Last Filed: 12/20/22 02:39> Genitourinary: Genitourinary: Reports abnormal vaginal bleeding <Indra Najera MD - Last Filed: 12/20/22 02:39> Neurologic: Denies Sensory deficit (Neuro) <Indra Najera MD - Last Filed: 12/20/22 02:39> [facility] Past Medical History Medical History: Medical History Asthma <ALO Hernandez - Last Filed: 12/19/22 17:50> Social History Social History: Social History Alcohol intake: never Patient Tobacco Use Status: Never used Tobacco Advance Directives: No Advance Directives Information Provided: Yes <ALO Hernandez - Last Filed: 12/19/22 17:50> Physical Exam Vital Signs: Vital Signs: Last Vital Signs Temp 98.0 F 12/20/22 02:33 Pulse 79 12/20/22 02:33 Resp 18 12/20/22 02:33 BP 133/79 12/20/22 02:33 Pulse Ox 96 12/20/22 02:33 O2 Del Method Room Air 12/20/22 02:33 BMI result Body Mass Index 35.2 <ALO Hernandez - Last Filed: 12/19/22 17:50> Vital Signs: Last Vital Signs Temp 98.0 F 12/20/22 02:33 Pulse 79 12/20/22 02:33 Resp 18 12/20/22 02:33 BP 133/79 12/20/22 02:33 Pulse Ox 96 12/20/22 02:33 O2 Del Method Room Air 12/20/22 02:33 BMI result Body Mass Index 35.2 <Indra Najera MD - Last Filed: 12/20/22 02:39> Const: General: healthy appearing <Indra Najera MD - Last Filed: 12/20/22 02:39> Nutritional Appearance: average body habitus <Indra Najera MD - Last Filed: 12/20/22 02:39> Orientation/consciousness: oriented to person and patient oriented x3 <Indra Najera MD - Last Filed: 12/20/22 02:39> Limitations: no limitations <Indra Najera MD - Last Filed: 12/20/22 02:39> HEENT: Head: Yes normal to inspection <Indra Najera MD - Last Filed: 12/20/22 02:39> Ears: external ears normal <Indra Najera MD - Last Filed: 12/20/22 02:39> General nose exam: Normal external nose present <Indra Najera MD - Last Filed: 12/20/22 02:39> Mouth: Normal oral and palatal mucosa present and oropharynx normal <Indra Najera MD - Last Filed: 12/20/22 02:39> Throat: Yes posterior oropharynx normal <Indra Najera MD - Last Filed: 12/20/22 02:39> Eyes: General: appearance normal, both eyes and all related structures <Indra Najera MD - Last Filed: 12/20/22 02:39> Neck: Other: supple <Indra Najera MD - Last Filed: 12/20/22 02:39> Neck: Yes normal visual inspection <Indra Najera MD - Last Filed: 12/20/22 02:39> Chest: Chest palpation & inspection: normal inspection of the chest <Indra Najera MD - Last Filed: 12/20/22 02:39> Resp: Auscultation: clear to auscultation bilaterally <Indra Najera MD - Last Filed: 12/20/22 02:39> Cardio: Jugular venous distension: no JVD <Indra Najera MD - Last Filed: 12/20/22 02:39> Rate: regular rate <Indra Najera MD - Last Filed: 12/20/22 02:39> Rhythm: regular rhythm <Indra Najera MD - Last Filed: 12/20/22 02:39> Heart sounds: S1 normal heart sound present and S2 normal heart sound present <Indra Najera MD - Last Filed: 12/20/22 02:39> GI: Inspection: Yes normal to inspection <Indra Najera MD - Last Filed: 12/20/22 02:39> Palpation (GI): Soft to palpation, nontender and No hepatosplenomegaly present <Indra Najera MD - Last Filed: 12/20/22 02:39> Auscultation: normal bowel sounds <Indra Najera MD - Last Filed: 12/20/22 02:39> : Other: normal vagina, small blood in vault, no active bleeding <Indra Najera MD - Last Filed: 12/20/22 02:39> Skin: General skin exam: no rashes or lesions noted <Indra Najera MD - Last Filed: 12/20/22 02:39> Neuro: General: oriented to person and patient oriented x3 <Indra Najera MD - Last Filed: 12/20/22 02:39> Cranial nerves: Yes CN's II-XII intact bilaterally <Indra Najera MD - Last Filed: 12/20/22 02:39> Motor exam (neuro): 5/5 motor strength present throughout <Indra Najera MD - Last Filed: 12/20/22 02:39> Sensory Exam: No Sensory deficit (Neuro) <Indra Najera MD - Last Filed: 12/20/22 02:39> Extrem: General: Yes normal to inspection <Indra Najera MD - Last Filed: 12/20/22 02:39> Psych: Appearance: grossly normal <Indra Najera MD - Last Filed: 12/20/22 02:39> Course Course Course Narrative: RME: 42yo w/PMHx uterine polyp & ovarian cyst c/o bright red vaginal bleeding x 1 week w/clots & assoc abdominal cramping & lightheadedness/headache. Denies vaginal d/c. denies taking AC Admits went through 18 pads since yesterday. LMP 12/05/22 Labs, UA, Pelvic US ordered Full HPI, ROS and PE to be performed by primary ED provider. <ALO Hernandez - Last Filed: 12/19/22 17:50> Reevaluation(s) Reevaluation #1: patient with normal labs and normal ultrasound, not anemic, with no acute bleeding on physical exam, will dc home <Indra Najera MD - Last Filed: 12/20/22 02:39> Time: 02:37 <Indra Najera MD - Last Filed: 12/20/22 02:39> Medical Decision Making Differential Diagnosis Differential Diagnoses: The differential diagnosis associated with the presentation includes (, dysfunctional uterine bleeding, menorrhagia) <Indra Najera MD - Last Filed: 12/20/22 02:39> Lab Data MDM Lab Attestation statement: I reviewed the patient's lab results. <Indra Najera MD - Last Filed: 12/20/22 02:39> Result Diagrams: 12/19/22 20:21 12/19/22 20:21 <ALO Hernandez - Last Filed: 12/19/22 17:50> Labs: Lab Results 12/19/22 12/19/22 12/19/22 Range/Units 20:21 20:21 20:21 WBC 13.0 H (4.8-10.8) X10*3/uL RBC 5.27 (4.20-5.50) X10*6/uL Hgb 14.6 (12.0-16.0) g/dl Hct 43.1 (37.0-47.0) % MCV 81.8 (80.0-98.0) fL MCH 27.7 (27.0-33.0) pg MCHC 33.9 (31.0-35.0) g/dl RDW 15.2 (11.0-16.0) % Plt Count 220 (160-400) X10*3/uL MPV 10.4 (9.4-12.3) fL Immature Gran % (Auto) 0.5 H (0.0-0.4) % Neut % (Auto) 58.1 (45-73) % Lymph % (Auto) 32.5 (20-40) % [place] % (Auto) 5.6 (2-11) % Eos % (Auto) 2.8 (0-4) % Baso % (Auto) 0.5 (0-2) % Lymph # (Auto) 4.2 (1.2-4.9) X10*3/uL [place] # (Auto) 0.7 (0.1-1.2) X10*3/uL Eos # (Auto) 0.4 (0.0-0.4) X10*3/uL Baso # (Auto) 0.1 (0.0-0.2) X10*3/uL Abs Immat Gran (auto) 0.06 H (0.00-0.03) X10*3/uL Absolute Neuts (auto) 7.6 (2.0-8.3) x10*3/uL Absolute Nucleated RBC 0.000 (0.0-0.012) X10*3/uL Nucleated RBC % (auto) 0.0 (0.0-0.2) /100WBC Smear Tech's Comments VERIFIED PT 10.4 (10.0-13.1) SEC INR 0.9 (0.9-1.1) Sodium 142 (135-145) mmol/L Potassium 4.1 (3.3-5.1) mmol/L Chloride 107 (96-108) mmol/L Carbon Dioxide 26 (22-29) mmol/L Anion Gap 13 (12-20) BUN 15 (9-16) mg/dL Creatinine 0.75 (0.5-1.4) mg/dL Estim Creat Clear Calc 92.5 Estimated GFR > 60 Random Glucose 118 H (60-115) mg/dL Calcium 9.4 (8.4-10.2) mg/dL Total Bilirubin 0.2 (0.0-1.0) mg/dL Direct Bilirubin < 0.2 (0.0-0.5) mg/dL AST 16 (5-31) U/L ALT 17 (0-31) U/L Alkaline Phosphatase 102 (39-117) U/L Total Protein 7.0 (6.5-8.0) g/dL Albumin 4.0 (3.5-5.0) g/dL Lipase 28 (8-78) U/L Beta HCG, Quant < 2 mIU/mL Urine Color Urine Appearance Urine pH (5.0-9.0) Ur Specific Williams (1.005-1.025) Urine Protein (Neg-Trace) mg/dL Urine Glucose (UA) (Negative) mg/dL Urine Ketones (Negative) mg/dL Urine Blood (Negative) Urine Nitrite (Negative) Ur Leukocyte Esterase (Negative) Urine RBC (0-2) /HPF Urine WBC (0-5) /HPF Ur Squamous Epith Cells (0-2) /HPF Urine Bacteria (None Seen) Hyaline Casts (0-2) /LPF 12/19/22 Range/Units 20:26 WBC (4.8-10.8) X10*3/uL RBC (4.20-5.50) X10*6/uL Hgb (12.0-16.0) g/dl Hct (37.0-47.0) % MCV (80.0-98.0) fL MCH (27.0-33.0) pg MCHC (31.0-35.0) g/dl RDW (11.0-16.0) % Plt Count (160-400) X10*3/uL MPV (9.4-12.3) fL Immature Gran % (Auto) (0.0-0.4) % Neut % (Auto) (45-73) % Lymph % (Auto) (20-40) % [place] % (Auto) (2-11) % Eos % (Auto) (0-4) % Baso % (Auto) (0-2) % Lymph # (Auto) (1.2-4.9) X10*3/uL [place] # (Auto) (0.1-1.2) X10*3/uL Eos # (Auto) (0.0-0.4) X10*3/uL Baso # (Auto) (0.0-0.2) X10*3/uL Abs Immat Gran (auto) (0.00-0.03) X10*3/uL Absolute Neuts (auto) (2.0-8.3) x10*3/uL Absolute Nucleated RBC (0.0-0.012) X10*3/uL Nucleated RBC % (auto) (0.0-0.2) /100WBC Smear Tech's Comments PT (10.0-13.1) SEC INR (0.9-1.1) Sodium (135-145) mmol/L Potassium (3.3-5.1) mmol/L Chloride (96-108) mmol/L Carbon Dioxide (22-29) mmol/L Anion Gap (12-20) BUN (9-16) mg/dL Creatinine (0.5-1.4) mg/dL Estim Creat Clear Calc Estimated GFR Random Glucose (60-115) mg/dL Calcium (8.4-10.2) mg/dL Total Bilirubin (0.0-1.0) mg/dL Direct Bilirubin (0.0-0.5) mg/dL AST (5-31) U/L ALT (0-31) U/L Alkaline Phosphatase (39-117) U/L Total Protein (6.5-8.0) g/dL Albumin (3.5-5.0) g/dL Lipase (8-78) U/L Beta HCG, Quant mIU/mL Urine Color [place] Urine Appearance Hazy Urine pH 5.0 (5.0-9.0) Ur Specific Williams 1.025 (1.005-1.025) Urine Protein Trace (Neg-Trace) mg/dL Urine Glucose (UA) Negative (Negative) mg/dL Urine Ketones Negative (Negative) mg/dL Urine Blood Large (3+) H (Negative) Urine Nitrite Negative (Negative) Ur Leukocyte Esterase Negative (Negative) Urine RBC >20 H (0-2) /HPF Urine WBC 6-10 H (0-5) /HPF Ur Squamous Epith Cells 3-5 (0-2) /HPF Urine Bacteria None Seen (None Seen) Hyaline Casts 0-2 (0-2) /LPF <ALO Hernandez - Last Filed: 12/19/22 17:50> Lab Results 12/19/22 12/19/22 12/19/22 Range/Units 20:21 20:21 20:21 WBC 13.0 H (4.8-10.8) X10*3/uL RBC 5.27 (4.20-5.50) X10*6/uL Hgb 14.6 (12.0-16.0) g/dl Hct 43.1 (37.0-47.0) % MCV 81.8 (80.0-98.0) fL MCH 27.7 (27.0-33.0) pg MCHC 33.9 (31.0-35.0) g/dl RDW 15.2 (11.0-16.0) % Plt Count 220 (160-400) X10*3/uL MPV 10.4 (9.4-12.3) fL Immature Gran % (Auto) 0.5 H (0.0-0.4) % Neut % (Auto) 58.1 (45-73) % Lymph % (Auto) 32.5 (20-40) % [place] % (Auto) 5.6 (2-11) % Eos % (Auto) 2.8 (0-4) % Baso % (Auto) 0.5 (0-2) % Lymph # (Auto) 4.2 (1.2-4.9) X10*3/uL [place] # (Auto) 0.7 (0.1-1.2) X10*3/uL Eos # (Auto) 0.4 (0.0-0.4) X10*3/uL Baso # (Auto) 0.1 (0.0-0.2) X10*3/uL Abs Immat Gran (auto) 0.06 H (0.00-0.03) X10*3/uL Absolute Neuts (auto) 7.6 (2.0-8.3) x10*3/uL Absolute Nucleated RBC 0.000 (0.0-0.012) X10*3/uL Nucleated RBC % (auto) 0.0 (0.0-0.2) /100WBC Smear Tech's Comments VERIFIED PT 10.4 (10.0-13.1) SEC INR 0.9 (0.9-1.1) Sodium 142 (135-145) mmol/L Potassium 4.1 (3.3-5.1) mmol/L Chloride 107 (96-108) mmol/L Carbon Dioxide 26 (22-29) mmol/L Anion Gap 13 (12-20) BUN 15 (9-16) mg/dL Creatinine 0.75 (0.5-1.4) mg/dL Estim Creat Clear Calc 92.5 Estimated GFR > 60 Random Glucose 118 H (60-115) mg/dL Calcium 9.4 (8.4-10.2) mg/dL Total Bilirubin 0.2 (0.0-1.0) mg/dL Direct Bilirubin < 0.2 (0.0-0.5) mg/dL AST 16 (5-31) U/L ALT 17 (0-31) U/L Alkaline Phosphatase 102 (39-117) U/L Total Protein 7.0 (6.5-8.0) g/dL Albumin 4.0 (3.5-5.0) g/dL Lipase 28 (8-78) U/L Beta HCG, Quant < 2 mIU/mL Urine Color Urine Appearance Urine pH (5.0-9.0) Ur Specific Williams (1.005-1.025) Urine Protein (Neg-Trace) mg/dL Urine Glucose (UA) (Negative) mg/dL Urine Ketones (Negative) mg/dL Urine Blood (Negative) Urine Nitrite (Negative) Ur Leukocyte Esterase (Negative) Urine RBC (0-2) /HPF Urine WBC (0-5) /HPF Ur Squamous Epith Cells (0-2) /HPF Urine Bacteria (None Seen) Hyaline Casts (0-2) /LPF 12/19/22 Range/Units 20:26 WBC (4.8-10.8) X10*3/uL RBC (4.20-5.50) X10*6/uL Hgb (12.0-16.0) g/dl Hct (37.0-47.0) % MCV (80.0-98.0) fL MCH (27.0-33.0) pg MCHC (31.0-35.0) g/dl RDW (11.0-16.0) % Plt Count (160-400) X10*3/uL MPV (9.4-12.3) fL Immature Gran % (Auto) (0.0-0.4) % Neut % (Auto) (45-73) % Lymph % (Auto) (20-40) % [place] % (Auto) (2-11) % Eos % (Auto) (0-4) % Baso % (Auto) (0-2) % Lymph # (Auto) (1.2-4.9) X10*3/uL [place] # (Auto) (0.1-1.2) X10*3/uL Eos # (Auto) (0.0-0.4) X10*3/uL Baso # (Auto) (0.0-0.2) X10*3/uL Abs Immat Gran (auto) (0.00-0.03) X10*3/uL Absolute Neuts (auto) (2.0-8.3) x10*3/uL Absolute Nucleated RBC (0.0-0.012) X10*3/uL Nucleated RBC % (auto) (0.0-0.2) /100WBC Smear Tech's Comments PT (10.0-13.1) SEC INR (0.9-1.1) Sodium (135-145) mmol/L Potassium (3.3-5.1) mmol/L Chloride (96-108) mmol/L Carbon Dioxide (22-29) mmol/L Anion Gap (12-20) BUN (9-16) mg/dL Creatinine (0.5-1.4) mg/dL Estim Creat Clear Calc Estimated GFR Random Glucose (60-115) mg/dL Calcium (8.4-10.2) mg/dL Total Bilirubin (0.0-1.0) mg/dL Direct Bilirubin (0.0-0.5) mg/dL AST (5-31) U/L ALT (0-31) U/L Alkaline Phosphatase (39-117) U/L Total Protein (6.5-8.0) g/dL Albumin (3.5-5.0) g/dL Lipase (8-78) U/L Beta HCG, Quant mIU/mL Urine Color [place] Urine Appearance Hazy Urine pH 5.0 (5.0-9.0) Ur Specific Williams 1.025 (1.005-1.025) Urine Protein Trace (Neg-Trace) mg/dL Urine Glucose (UA) Negative (Negative) mg/dL Urine Ketones Negative (Negative) mg/dL Urine Blood Large (3+) H (Negative) Urine Nitrite Negative (Negative) Ur Leukocyte Esterase Negative (Negative) Urine RBC >20 H (0-2) /HPF Urine WBC 6-10 H (0-5) /HPF Ur Squamous Epith Cells 3-5 (0-2) /HPF Urine Bacteria None Seen (None Seen) Hyaline Casts 0-2 (0-2) /LPF <Indra Najera MD - Last Filed: 12/20/22 02:39> Radiology Impression Discussion of test interpretation with radiology: I have reviewed the radiologist's reading. (ultrasound normal) <Indra Najera MD - Last Filed: 12/20/22 02:39> Discharge Plan Discharge Clinical Impression: Vaginal bleeding, Menometrorrhagia, Dysfunctional uterine bleeding <ALO Hernandez - Last Filed: 12/19/22 17:50> Patient Disposition: Home, Self-Care <ALO Hernandez - Last Filed: 12/19/22 17:50> Instructions: Dysfunctional Uterine Bleeding (ED), Menorrhagia (ED) <ALO Hernandez - Last Filed: 12/19/22 17:50> Prescriptions: No Action lidocaine 4 % adhesive patch,medicated 1 patch topical DAILY PRN (Reason: pain) Qty: 10 0RF Rx Instructions: may leave on for up to 12 hrs ibuprofen 600 mg tablet 600 mg PO Q6H PRN (Reason: pain) Qty: 30 0RF diazepam [Valium] 5 mg tablet 5 mg PO TID PRN (Reason: muscle spasm) Qty: 10 0RF ibuprofen 800 mg tablet 800 mg PO Q8H PRN (Reason: pain) Qty: 14 0RF acetaminophen [Arthritis Pain Relief (acetam)] 650 mg tablet extended release 650 mg PO Q12H PRN (Reason: pain) Qty: 14 0RF tramadol 50 mg tablet 50 mg PO BID PRN (Reason: pain) Qty: 14 0RF <ALO Hernandez - Last Filed: 12/19/22 17:50> Referrals: Paxton Darnell MD [Physician] - 1 week <ALO Hernandez - Last Filed: 12/19/22 17:50> Interventions: ED Discharge Assessment Last Done: 12/19/22 20:32 <ALO Hernandez - Last Filed: 12/19/22 17:50>
[2022-12-19 20:29] LABS: Basophils Absolute Auto 0.1 X10*3/uL (0.0-0.2); Basophils Percent Auto 0.5 % (0-2); Eosinophils Absolute Auto 0.4 X10*3/uL (0.0-0.4); Eosinophils Percent Auto 2.8 % (0-4); Hematocrit 43.1 % (37.0-47.0); Hemoglobin 14.6 g/dl (12.0-16.0); Imm Gran Abs Auto 0.06 X10*3/uL (0.00-0.03); Imm Gran Pct Auto 0.5 % (0.0-0.4); Lymphocytes Absolute Auto 4.2 X10*3/uL (1.2-4.9); Lymphocytes Percent Auto 32.5 % (20-40); MANUAL DIFF FLAG SCAN; Mean Corpuscular HGB Conc 33.9 g/dl (31.0-35.0); Mean Corpuscular Hemoglobin 27.7 pg (27.0-33.0); Mean Corpuscular Volume 81.8 fL (80.0-98.0); Mean Platelet Volume 10.4 fL (9.4-12.3); Monocytes Absolute Auto 0.7 X10*3/uL (0.1-1.2); Monocytes Percent Auto 5.6 % (2-11); Neutrophils Absolute Auto 7.6 x10*3/uL (2.0-8.3); Neutrophils Percent Auto 58.1 % (45-73); PLT CLUMP 1; Red Blood Count 5.27 X10*6/uL (4.20-5.50); Red Cell Distribution Width 15.2 % (11.0-16.0); SCAN SMEAR FLAG 1
[2022-12-19 20:32] LABS: INTERNATIONAL NORM RATIO 0.9 (0.9-1.1); Prothrombin Time 10.4 SEC (10.0-13.1)
[2022-12-19 20:34] LABS: Appearance Urine Hazy; Color Urine Orange; Glucose Urine UA Negative (Negative); Leukocyte Esterase Urine Negative (Negative); Nitrite Urine Negative (Negative); Specific Gravity - Urine 1.025 (1.005-1.025); UMIC TRIGGER UACC YES; Urine Blood Large (3+) (Negative); Urine Ketones Negative (Negative); Urine Protein Trace mg/dL (Neg-Trace)
[2022-12-19 20:43] LABS: Bacteria Urine None Seen (None Seen); Hyaline Casts Urine 0-2 /LPF (0-2); RBC Urine >20 /HPF (0-2); UACC Culture Trigger YES
[2022-12-19 20:51] LABS: Platelet Count 220 X10*3/uL (160-400); SLIDE REVIEW VERIFIED
[2022-12-19 20:55] LABS: Alanine Aminotransferase 17 U/L (0-31); Alkaline Phosphatase 102 U/L (39-117); Anion Gap 13 (12-20); Aspartate Amino Transferase 16 U/L (5-31); Bilirubin Direct < 0.2 mg/dL (0.0-0.5); Bilirubin Total 0.2 mg/dL (0.0-1.0); Blood Urea Nitrogen 15 mg/dL (9-16); Calcium 9.4 mg/dL (8.4-10.2); Carbon Dioxide 26 mmol/L (22-29); Chloride 107 mmol/L (96-108); Creatinine Clr Calc Pharmacy 92.5; Estimated Glomerular Filt Rate > 60; Glucose Random 118 mg/dL (60-115); HCG Quantitative < 2 mIU/mL; Lipase 28 U/L (8-78); Potassium 4.1 mmol/L (3.3-5.1); Sodium 142 mmol/L (135-145)
[2022-12-20 00:12] VITALS: BP 134/87; PULSE 81; RESP 16; TEMP 36.4; O2SAT 96
[2022-12-20 02:33] VITALS: BP 133/79; PULSE 79; RESP 18; TEMP 36.7; O2SAT 96
== END 2022-12-20 02:49 | disposition home or self-care (01) ==
PROVIDERS: Physician Assistant; Emergency Provider Emergency Medicine; PCP Pediatrics
DX: N93.9 Abnormal uterine and vaginal bleeding, unspecified (principal); N92.1 Excessive and frequent menstruation with irregular cycle
CPT/HCPCS: 36415; 76830; 76856; 80048; 80076; 81001; 83690; 84702; 85025; 85610; 87086; 99284

== ENCOUNTER 2023-03-08 10:39 | Outpatient (AMB) | payer MEDICAID, SELFPAY ==
[2023-03-08 11:02] VITALS: BP 122/74; BMI 36.9
--- NOTE | 2023-03-08 11:02 | A.OFFVIS_ITS ---
Intake Vital Signs 03/08/23 11:02 Height 5 ft Weight 189 lb BMI 36.9 BP 122/74 Intake Visit Reasons: [facility]UB referred by [facility] Intake Note: was recently taking estroven but stopped because of HTN The patient agreed to use of a medical authorization specialist during this encounter. Scribed for TANYA Abarca by Shagufta Franco medical authorization specialist, on 03/08/2023 Diesel Engine Tester: Diesel Engine Tester Present (Erin) Allergies Codeine Sulfate Allergy (Unknown, Uncoded 03/08/23 11:03) Palpitations Sulfa Allergy (Unknown, Uncoded 03/08/23 11:03) Unknown Is last menstrual period known: Yes Last menstrual period: 03/04/23 HPI HPI Comments History of Present Illness Details She is presenting via referral from [facility] for irregular menses and spotting x ~4weeks, in October/November, now regular since. No prior irregular bleeding. Reported to ED, she reports it was a hormonal imbalance. Subsequently, took Estroven, then her PCP told her to stop because of her HTN. FM Hx of HTN. Notices extremity swelling after high sodium intake. Currently sexually active. Has BLTL. Last pap smear 05/25/22; neg, neg PFSH Medical History Asthma Breast mass, right Hypertension Irregular menses Surgical History H/O knee surgery Family History Mother History of breast cancer FH: HTN (hypertension) Maternal Grandmother Ovarian cancer Father FH: HTN (hypertension) Sister FH: HTN (hypertension) Brother FH: HTN (hypertension) Paternal Grandmother FH: HTN (hypertension) Social History Alcohol intake: never Patient Tobacco Use Status: Current everyday Tobacco user Cigarettes Per Day: 7 Sexually active: Yes Sexual orientation: Straight/Heterosexual Gender identity: Female Female Reproductive History Menstrual Duration of menses: 3-5 days Date of last menstrual period: 03/04/23 Total pregnancies: 5 Full term: 4 Number of Living Children: 4 Ab induced: 1 Physical Exam Vital Signs: Last Vital Signs BP 122/74 07/12/23 11:02 BMI result Body Mass Index 36.9 Const General: cooperative, healthy appearing, comfortable, no acute distress, well developed, alert, awake and Physically active Other: General: Yes bladder normal to palpation External Female Exam: normal external appearance and normal appearance of the urethra Speculum Exam - Vagina: normal appearance of the vagina and normal palpation Speculum Exam - Cervix: normal appearance of the cervix, normal palpation and Other cervical findings present (small amount of blood at cervical os) Bimanual exam- vagina & uterus: normal bimanual exam, normal palpation, bladder normal to palpation and normal palpation Bimanual Exam- Adnexa, other: normal adnexae and no masses Results Reviewed Results Reviewed: TSH: 1.09 Assessment & Plan Assessment & Plan (1) Irregular menses: Code(s): N92.6 - Irregular menstruation, unspecified Plan: Discussed: Maintaining a healthy lifestyle including a well balanced DASH diet and routine exercise. Encouraged to monitor sodium intake. Monitor periods, report any unscheduled bleeding, bleeding episodes less than 21 days apart or heavy prolonged menstrual bleeding. If abnormal bleeding pattern occurs, report to the office for AUB work up and EMB. The EMBx purpose was explained to rule out atypia, hyperplasia and uterine cancer. Reviewed procedure and instructed to take ibuprofen with food 1 hour prior to procedure. All of her questions and concerns were addressed to the best of my ability and shared decision making. She is agreeable to plan of care. Coding Level of Care Code New Pt Level 3 (90073) Diagnoses Irregular menses N92.6
== END 2023-03-08 15:23 | disposition home or self-care (01) ==
LOC: HO.HWS 10:39
PROVIDERS: PCP Pediatrics; Visit Provider Advanced Practice Midwife
DX: N92.6 Irregular menstruation, unspecified (principal)
CPT/HCPCS: 99203

== ENCOUNTER → 2023-03-08 10:39 | Outpatient (BNVA) | payer MEDICAID, SELFPAY | PROVIDERS: PCP Pediatrics; Visit Provider Advanced Practice Midwife | DX: N92.6 Irregular menstruation, unspecified (principal) | CPT/HCPCS: 99203 ==

== ENCOUNTER 2023-04-04 10:33 | Outpatient (REF) | payer MEDICAID, SELFPAY ==
[2023-04-04 16:10] LABS: Anion Gap 12 (12-20); Blood Urea Nitrogen 9 mg/dL (9-16); Carbon Dioxide 25 mmol/L (22-29); Chloride 107 mmol/L (96-108); Estimated Glomerular Filt Rate > 60; Glucose Fasting 58 mg/dL (60-99); Potassium 3.8 mmol/L (3.3-5.1); Sodium 140 mmol/L (135-145)
== END 2023-04-04 10:34 | disposition home or self-care (01) ==
LOC: HO.CHCLDS 10:33
PROVIDERS: Visit Provider Internal Medicine
DX: I10 Essential (primary) hypertension (principal)
CPT/HCPCS: 36415; 80048

== ENCOUNTER 2023-05-06 14:52 | Emergency (ER) | payer MEDICAID, SELFPAY ==
--- NOTE | ~2023-05-06 | XR_ITS ---
EXAMINATION: XR CHEST CLINICAL INFORMATION: Reason for Exam cough, wheezing COMPARISON: Chest radiograph 09/10/2015 TECHNIQUE: 2 views of the chest FINDINGS: Lines and tubes: None. Clear lungs. No pleural effusion. No pneumothorax. Normal cardiomediastinal silhouette. XR/XR chest 2V IMPRESSION: * Clear lungs.
[2023-05-06 15:46] VITALS: BP 114/75; PULSE 96; RESP 24; TEMP 37.1; O2SAT 93; BMI 35.2
--- NOTE | 2023-05-06 15:47 | ED.GENADULT ---
HPI - General Adult General Chief complaint: Upper Respiratory Symptoms Stated complaint: asthma Time Seen by Provider: 05/06/23 15:51 Source: patient Mode of arrival: ambulatory Limitations: no limitations History of Present Illness HPI narrative: 42-year-old female with a history of asthma presents the ER with complaints of difficulty breathing. Per patient yesterday she started with nasal congestion and cough. Today increased shortness of breath unrelieved with home albuterol inhaler. Patient reports chest discomfort with coughing. No leg swelling, leg pain, dizziness, palpitations, fevers, chills. Patient denies any previous hospitalizations for asthma or intubation history. Related Data Home Medications Medication Instructions Recorded Confirmed azelastine 137 mcg (0.1 %) nasal 1 spray intranasal BID 03/08/23 spray aerosol cetirizine 10 mg tablet 10 mg PO QAM 03/08/23 furosemide 20 mg tablet 20 mg PO QAM 03/08/23 ketotifen fumarate 0.025 % (0.035 0 drp ophthalmic (eye) 03/08/23 %) eye drops Previous Rx's Medication Instructions Recorded acetaminophen 650 mg 650 mg PO Q12H PRN pain #14 tabs 04/24/22 tablet,extended release (Arthritis Pain Relief (acetaminophen) ER) azithromycin 250 mg tablet See Rx Instructions PO .COMPLEX #6 05/06/23 tabs prednisone 20 mg tablet 40 mg (2 x 20 mg) PO DAILY #8 tabs 05/06/23 Allergies Allergy/AdvReac Type Severity Reaction Status Date / Time Codeine Sulfate Allergy Unknown Palpitation Uncoded 05/06/23 15:46 s Sulfa Allergy Unknown Unknown Uncoded 05/06/23 15:46 Review of Systems Review of Systems: Yes all other systems are reviewed and are negative Constitutional: Constitutional: Reports no additional constitutional complaints, Denies body ache(s), Denies chills, Denies fever(s), Denies headache(s) and Denies weakness Eyes: Eyes: Reports no additional eye complaints and Denies change in vision ENT: Reports system reviewed and no additional complaints, except as documented, Denies dizziness, Denies headache(s), Reports nasal congestion, Denies nasal discharge and Denies neck pain Cardiovascular: Cardiovascular: Reports no additional cardiovascular complaints, Denies chest pain, Denies leg edema and Reports dyspnea Respiratory: Respiratory: Reports no additional respiratory complaints, Reports cough and Reports dyspnea Gastrointestinal: Gastrointestinal: Reports no additional gastrointestinal complaints, Denies abdominal pain, Denies diarrhea, Denies nausea and Denies vomiting Genitourinary: Genitourinary: Reports no additional female genitourinary complaints and Denies urinary incontinence Musculoskeletal: Musculoskeletal: Reports no additional musculoskeletal complaints, Denies back pain, Denies arthralgias, Denies joint swelling, Denies neck pain, Denies numbness and Denies tingling Integumentary/Breasts: Skin/Breast: Reports system reviewed and no additional complaints, except as docu and Denies rash Neurologic: Reports system reviewed and no additional complaints, except as documented, Denies Abnormal speech present, Denies dizziness, Denies headache(s), Denies numbness, Denies tingling and Denies weakness PMFSH Past Medical History Attestation statement: The following information was validated with the patient. Source: old records reviewed and nursing notes reviewed Medical History Irregular menses Breast mass, right Hypertension Asthma Surgical History H/O knee surgery Family History Family History Mother History of breast cancer FH: HTN (hypertension) Maternal Grandmother Ovarian cancer Father FH: HTN (hypertension) Sister FH: HTN (hypertension) Brother FH: HTN (hypertension) Paternal Grandmother FH: HTN (hypertension) Social History Social History Alcohol intake: never Patient Tobacco Use Status: Current everyday Tobacco user Cigarettes Per Day: 7 Advance Directives: No Advance Directives Information Provided: No Sexual orientation: Straight/Heterosexual Gender identity: Female Physical Exam ED Vital Signs: Vital Signs - 24 hr 05/06/23 15:46 05/06/23 16:21 05/06/23 17:10 Temperature 98.8 F Pulse Rate 96 95 95 Respiratory Rate 24 H 16 18 Blood Pressure 114/75 146/77 H Pulse Oximetry 93 95 Oxygen Delivery Method Room Air Room Air BMI result Body Mass Index 35.2 Const General: cooperative, healthy appearing, comfortable and no acute distress Orientation/consciousness: patient oriented x3 Limitations: no limitations HENMT Head: Yes normal to inspection Ears: hearing grossly normal bilaterally and TM's normal bilaterally General nose exam: Normal external nose present Face and sinus: Yes normal facial exam Mouth: Normal oral and palatal mucosa present Throat: Yes posterior oropharynx normal, Yes tonsils normal and Yes uvula midline Eyes General: appearance normal, both eyes and all related structures Pupils: Equal, round and reactive pupils present Neck Neck: Yes normal visual inspection, Yes full ROM, Yes no lymphadenopathy and Yes no meningeal signs Chest Chest palpation & inspection: normal inspection of the chest Resp Other: mild exp wheezing tachypnea Cardio Rate: regular rate Rhythm: regular rhythm Peripheral pulses: Peripheral pulses 2+ throughout GI Inspection: Yes normal to inspection Palpation (GI): Soft to palpation and nontender Auscultation: normal bowel sounds Back/Spine/Pelvis Thoracic/Lumbar Spine: thoracic and lumbar spine normal to inspection Skin General skin exam: no rashes or lesions noted Neuro General: patient oriented x3, no meningeal signs, no focal motor deficits and normal sensation to monofilament Cranial nerves: Yes Equal, round and reactive pupils present Cognition (Neuro): normal cognition Speech: No Abnormal speech present Gait exam (Neuro): Normal gait present Motor exam (neuro): 5/5 motor strength present throughout Extrem General: Yes normal to inspection, Yes no pedal edema and Yes no calf tenderness Course Course Course Narrative: Patient complains of wheezing, chest tightness and shortness of breath and pleuritic chest pain despite use of her meter dose inhaler at home, she does have a history of asthma She started coughing yesterday with a productive cough, no fever In triage she is able to speak full sentences, her O2 saturation was 91-94, she was tachypneic about 30bpm Reevaluation(s) Reevaluation #1: testing for flu, COVID and RSV are negative. Chest x-ray shows no acute finding. Respiratory rate has improved after receiving DuoNeb. No hypoxia. Plan for discharge home with prednisone and antibiotic course for presumed bronchitis. Reviewed worrisome signs and symptoms of when to return to the emergency room. Comfortable plan for discharge home. Medications Administered Discontinued Medications Generic Name Dose Route Start Last Admin Trade Name Freq PRN Reason Stop Dose Admin Albuterol/Ipratropium 3 ml 05/06/23 16:08 05/06/23 16:21 Albuterol/Iprat 2.5/0.5mg 3 Ml Ampul.Neb INHALE 05/06/23 16:09 3 ml ONCE ONE Administration Ibuprofen 600 mg 05/06/23 17:03 05/06/23 17:09 Ibuprofen 600 Mg Tablet PO 05/06/23 17:04 600 mg ONCE ONE Administration Prednisone 60 mg 05/06/23 16:14 05/06/23 17:09 Prednisone 20 Mg Tablet PO 05/06/23 16:15 60 mg ONCE ONE Administration Medical Decision Making Medical Decision Making MDM Narrative: 42-year-old female with a history of asthma with prodrome of URI symptoms now with difficulty breathing unrelieved with home albuterol Patient with tachypnea on arrival, mild expiratory wheezing. Will give DuoNeb, prednisone po will send testing for COVID/flu/ RSV and obtain chest x-ray Differential Diagnosis Differential Diagnoses: The differential diagnosis associated with the presentation includes viral syndrome pneumonia influenza asthma exacerbation PE- no risk factors such as recent travel, OCP use, recent surgeries, family or personal history of same. No clinical findings concerning for DVT. Admission/Observation Consideration of admission/observation: Escalation of care including admission/observation considered No hypoxia, tachypnea is improved after receiving albuterol nebulizer. Patient can be discharged home with oral antibiotics. No need for additional nebulizers or IV steroids and admission. Lab Data MDM Lab Attestation statement: I reviewed the patient's lab results. Testing for flu, COVID and RSV are negative Labs: Lab Results 05/06/23 Range/Units 16:29 Influenza Type A (PCR) NEGATIVE (Negative) Influenza Type B (PCR) NEGATIVE (Negative) RSV RNA Qual (PCR) NEGATIVE (Negative) SARS-CoV-2 RNA (RT-PCR) NEGATIVE (Negative) Independent Interpretation I performed an independent interpretation of an: Plain X-Ray Interpretation: I independently reviewed the x-ray and agree with the radiology report Radiology Impression Discussion of test interpretation with radiology: I have reviewed the radiologist's reading. Radiologist Impression: CLINICAL INFORMATION: Reason for Exam cough, wheezing COMPARISON: Chest radiograph 09/10/2015 TECHNIQUE: 2 views of the chest FINDINGS: Lines and tubes: None. Clear lungs. No pleural effusion. No pneumothorax. Normal cardiomediastinal silhouette. XR/XR chest 2V IMPRESSION: * Clear lungs. Discharge Plan Discharge Clinical Impression: Bronchitis, Asthma attack Patient Disposition: Home, Self-Care Instructions: Asthma (ED), Acute Bronchitis (ED) Additional Instructions: testing for flu, COVID and RSV are negative. Start prednisone tomorrow. Continue albuterol at home. Prescriptions: New prednisone 20 mg tablet 40 mg PO DAILY Qty: 8 0RF azithromycin 250 mg tablet See Rx Instructions .ROUTE .COMPLEX Qty: 6 0RF Rx Instructions: For 250 mg dose pack: take 500 mg today (day 1), then 250 mg for 4 days (days 2-5) No Action acetaminophen [Arthritis Pain Relief (acetam)] 650 mg tablet extended release 650 mg PO Q12H PRN (Reason: pain) Qty: 14 0RF cetirizine 10 mg tablet 10 mg PO QAM ketotifen fumarate 0.025 % (0.035 %) drops 0 drp ophthalmic (eye) azelastine 137 mcg (0.1 %) aerosol,spray 1 spray intranasal BID furosemide 20 mg tablet 20 mg PO QAM Referrals: Dina Cartagena MD [Primary Care Provider] - 1 week Stand Alone Forms: Work/School Release
[2023-05-06 16:21] VITALS: PULSE 95; RESP 16; O2SAT 94
[2023-05-06] MEDS: Albuterol/Iprat 2.5/0.5MG 3 ML AMPUL.NEB INHALE (16:21)
[2023-05-06] MEDS: Ibuprofen 600 MG TABLET PO (17:09)
[2023-05-06] MEDS: predniSONE 20 MG TABLET 60 MG PO (17:09)
[2023-05-06 17:10] VITALS: BP 146/77; PULSE 95; RESP 18; O2SAT 95
[2023-05-06 17:30] LABS: Influenza A PCR NEGATIVE (Negative); Influenza B PCR NEGATIVE (Negative); Resp Syncy Virus RNA Qual PCR NEGATIVE (Negative); SARS COV2 PCR INHOUSE NEGATIVE (Negative)
== END 2023-05-06 19:05 | disposition home or self-care (01) ==
PROVIDERS: Nurse Practitioner Family; Emergency Provider Emergency Medicine Emergency Medical Services; PCP Pediatrics
DX: J45.901 Unspecified asthma with (acute) exacerbation (principal); R06.02 Shortness of breath; Z20.822 Contact with and (suspected) exposure to COVID-19; Z20.828 Contact with and (suspected) exposure to other viral communicable diseases; I10 Essential (primary) hypertension; F17.210 Nicotine dependence, cigarettes, uncomplicated; Z79.899 Other long term (current) drug therapy
CPT/HCPCS: 0241U; 71046; 94640; 99284

== ENCOUNTER 2023-05-11 22:12 | Emergency (ER) | payer MEDICAID, SELFPAY ==
[2023-05-11 22:41] VITALS: BP 134/86; PULSE 77; RESP 18; TEMP 36.3; O2SAT 98; BMI 35.1
--- NOTE | 2023-05-11 23:17 | ED_ITS ---
HPI - General Adult General Chief complaint: General Medical Stated complaint: hemorrhoids flare up Time Seen by Provider: 05/11/23 23:04 Source: patient Mode of arrival: ambulatory Limitations: no limitations History of Present Illness HPI narrative: Patient been having pain in the rectal 3 days with burning sensation had rectal intercourse about a month no history of hemorrhoids Related Data Home Medications Medication Instructions Recorded Confirmed azelastine 137 mcg (0.1 %) nasal 1 spray intranasal BID 03/08/23 spray aerosol cetirizine 10 mg tablet 10 mg PO QAM 03/08/23 furosemide 20 mg tablet 20 mg PO QAM 03/08/23 ketotifen fumarate 0.025 % (0.035 0 drp ophthalmic (eye) 03/08/23 %) eye drops Previous Rx's Medication Instructions Recorded acetaminophen 650 mg 650 mg PO Q12H PRN pain #14 tabs 04/24/22 tablet,extended release (Arthritis Pain Relief (acetaminophen) ER) azithromycin 250 mg tablet See Rx Instructions PO .COMPLEX #6 05/06/23 tabs prednisone 20 mg tablet 40 mg (2 x 20 mg) PO DAILY #8 tabs 05/06/23 bacitracin zinc 500 unit/gram 1 appl topical TID #14 grams 05/11/23 topical ointment miconazole nitrate 2 % topical 1 appl topical BID #85 grams 05/11/23 powder (Lotrimin AF) Allergies Allergy/AdvReac Type Severity Reaction Status Date / Time Codeine Sulfate Allergy Unknown Palpitation Uncoded 05/11/23 22:41 s Sulfa Allergy Unknown Unknown Uncoded 05/11/23 22:41 Review of Systems Review of Systems: Yes all other systems are reviewed and are negative [facility] Past Medical History Medical History Irregular menses Breast mass, right Hypertension Asthma Surgical History H/O knee surgery Family History Family History Mother History of breast cancer FH: HTN (hypertension) Maternal Grandmother Ovarian cancer Father FH: HTN (hypertension) Sister FH: HTN (hypertension) Brother FH: HTN (hypertension) Paternal Grandmother FH: HTN (hypertension) Social History Social History Alcohol intake: never Patient Tobacco Use Status: Current everyday Tobacco user Cigarettes Per Day: 7 Advance Directives: No Advance Directives Information Provided: Yes Sexual orientation: Straight/Heterosexual Gender identity: Female Physical Exam ED Vital Signs: Vital Signs - 24 hr 05/11/23 22:41 Temperature 97.4 F Pulse Rate 77 Respiratory Rate 18 Blood Pressure 134/86 Pulse Oximetry 98 Oxygen Delivery Method Room Air BMI result Body Mass Index 35.1 Appearance: Alert. Oriented X3. No acute distress. CVS: Normal heart rate and rhythm. Pulses normal. Respiratory: No respiratory distress. Equal air entry bilateral, no wheezing/rales/rhonchi Abdomen: Soft and nontender. Bowel sounds are present, no mass palpable, no CVA tenderness rectal: Abrasion in perianal area elliott clear blisters worse no hemorrhoids palpated surrounding intertrigo present Skin: Skin warm and dry. Normal skin color. Normal skin turgor. Extremities: No lower extremity edema. No calf tenderness Neuro: Oriented X 3. Medical Decision Making Medical Decision Making MDM Narrative: Patient with nonspecific knee pain at that time patient did shave few days ago likely abrasion from the blades Discharge Plan Discharge Clinical Impression: Abrasion of skin, Intertrigo Patient Disposition: Home, Self-Care Instructions: Abrasion (ED), Skin Yeast Infection (ED) Additional Instructions: Local care as advised Apply bacitracin ointment use Lotrimin powder Report to the ER/PCP if worsening of the rash or pain or blisters Prescriptions: New bacitracin zinc 500 unit/gram ointment 1 appl topical TID Qty: 14 0RF miconazole nitrate [Lotrimin AF] 2 % powder 1 appl topical BID Qty: 85 0RF No Action acetaminophen [Arthritis Pain Relief (acetam)] 650 mg tablet extended release 650 mg PO Q12H PRN (Reason: pain) Qty: 14 0RF prednisone 20 mg tablet 40 mg PO DAILY Qty: 8 0RF azithromycin 250 mg tablet See Rx Instructions .ROUTE .COMPLEX Qty: 6 0RF Rx Instructions: For 250 mg dose pack: take 500 mg today (day 1), then 250 mg for 4 days (days 2-5) cetirizine 10 mg tablet 10 mg PO QAM ketotifen fumarate 0.025 % (0.035 %) drops 0 drp ophthalmic (eye) azelastine 137 mcg (0.1 %) aerosol,spray 1 spray intranasal BID furosemide 20 mg tablet 20 mg PO QAM
== END 2023-05-11 23:59 | disposition home or self-care (01) ==
PROVIDERS: Emergency Provider Internal Medicine; PCP Pediatrics
DX: S30.817A Abrasion of anus, initial encounter (principal); X58.XXXA Exposure to other specified factors, initial encounter; L30.4 Erythema intertrigo; I10 Essential (primary) hypertension; F17.210 Nicotine dependence, cigarettes, uncomplicated; Z79.899 Other long term (current) drug therapy; Y93.9 Activity, unspecified; Y92.9 Unspecified place or not applicable; Y99.9 Unspecified external cause status
CPT/HCPCS: 99283; 99284

== ENCOUNTER 2024-07-15 10:56 | Outpatient (REF) | payer MEDICAID, SELFPAY ==
[2024-07-15 12:41] LABS: TSH reflex Free T4 0.89 uIU/mL (0.32-4.0)
== END 2024-07-15 10:57 | disposition home or self-care (01) ==
LOC: HO.HHCL 10:56
PROVIDERS: Visit Provider Advanced Practice Midwife
DX: N93.9 Abnormal uterine and vaginal bleeding, unspecified (principal)
CPT/HCPCS: 36415; 84443

== ENCOUNTER 2024-08-07 07:53 | Outpatient (REF) | payer MEDICAID, SELFPAY ==
[2024-08-07 08:50] LABS: Hematocrit 39.3 % (37.0-47.0); Hemoglobin 13.5 g/dl (12.0-16.0); Mean Corpuscular HGB Conc 34.4 g/dl (31.0-35.0); Mean Corpuscular Hemoglobin 27.8 pg (27.0-33.0); Mean Corpuscular Volume 80.9 fL (80.0-98.0); Mean Platelet Volume 10.1 fL (9.4-12.3); Platelet Count 269 X10*3/uL (160-400); Red Blood Count 4.86 X10*6/uL (4.20-5.50); Red Cell Distribution Width 15.5 % (11.0-16.0); White Blood Count 9.3 X10*3/uL (4.8-10.8)
[2024-08-07 09:36] LABS: HCG Quantitative < 2 mIU/mL; TSH reflex Free T4 0.85 uIU/mL (0.32-4.0)
[2024-08-08 13:09] LABS: Prolactin 11.7 ng/mL
== END 2024-08-07 07:54 | disposition home or self-care (01) ==
LOC: HO.LAB 07:53
PROVIDERS: PCP Pediatrics; Visit Provider Obstetrics & Gynecology
DX: N93.9 Abnormal uterine and vaginal bleeding, unspecified (principal)
CPT/HCPCS: 36415; 81025; 84146; 84443; 84702; 85027; 87491; 87591; 87624; 88175; 99202; 99459

== ENCOUNTER 2024-08-07 07:53 | Outpatient (AMB) | payer MEDICAID, SELFPAY ==
--- NOTE | 2024-08-07 08:07 | MHC.OFFVIS ---
Vital Signs 08/07/24 08:12 Height 5 ft Weight 183 lb BMI 35.7 BP 118/70 Intake Visit Reasons: New patient [employer] Required: No Information Interpreted: non-clinical & clinical Fisher: Fisher Present (Mariza RIDER) Accompanied by: Self / Same As Patient Allergies Codeine Sulfate Allergy (Unknown, Uncoded 08/07/24 08:13) Palpitations Sulfa Allergy (Unknown, Uncoded 08/07/24 08:13) Unknown Is last menstrual period known: Yes Last menstrual period: 08/01/24 HPI Comments Details: The patient is presenting c/o irregular bleeding associated with passage of blood clots and abdominal cramping. it started few months ago and is getting worse no other associated symptoms. The patient is high-risk for breast cancer, having yearly breast MRIs and screening mammogram six-months apart, last breast MRI was done a month ago according to patient it was negative, no records available [facility] Medical History Irregular menses Breast mass, right Hypertension Asthma Surgical History Hx of tubal ligation H/O knee surgery Family History Mother History of breast cancer FH: HTN (hypertension) Maternal Grandmother Ovarian cancer Father FH: HTN (hypertension) Sister FH: HTN (hypertension) Brother FH: HTN (hypertension) Paternal Grandmother FH: HTN (hypertension) Paternal Grandfather Colon cancer Social History Household Members: Children Housing: House Alcohol intake: never Patient Tobacco Use Status: Current everyday Tobacco user Tobacco use type: Cigarette Cigarettes Per Day: 7 Years Smoked: 25 Current occupational status: employed 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 Sexually active: Yes Sexual orientation: Straight/Heterosexual Gender identity: Female Female Reproductive History Menstrual Date of last menstrual period: 08/01/24 Total pregnancies: 5 Full term: 4 Number of Living Children: 4 Ab induced: 1 Review of Systems Const All systems reviewed & are unremarkable except as noted in HPI and below Card Reports as per HPI Resp Reports as per HPI GI Reports as per HPI and Reports no additional complaints Reports as per HPI Physical Exam Vital Signs: Last Vital Signs BP 118/70 08/07/24 08:12 BMI result Body Mass Index 35.7 Const General: cooperative, healthy appearing and comfortable Chest Chest palpation & inspection: normal inspection of the chest and normal palpation of entire chest wall Breast/axilla inspection: normal inspection of the breasts and normal inspection of the axillae Breast/axilla palpation: normal palpation of the breasts, normal palpation of the axillae and no axillary lymphadenopathy Resp Effort & Inspection: normal respiratory effort Auscultation: clear to auscultation bilaterally Percussion: percussion normal Cardio Palpation: normal PMI Rate: regular rate Rhythm: regular rhythm Heart sounds: no murmurs and no rubs Peripheral pulses: Peripheral pulses 2+ throughout GI Inspection: Yes normal to inspection Palpation (GI): Soft to palpation, nontender, no guarding, not rigid and No hepatosplenomegaly present Percussion: Yes normal to percussion Auscultation: normal bowel sounds Rectal Exam - Female: deferred General: Yes bladder normal to palpation External Female Exam: No lesion Speculum Exam - Vagina: normal appearance of the vagina, normal palpation, normal vaginal discharge and not erythematous Speculum Exam - Cervix: normal appearance of the cervix and normal palpation Bimanual exam- vagina & uterus: normal bimanual exam, normal palpation, uterine size normal, bladder normal to palpation, consistency normal and normal palpation Bimanual Exam- Adnexa, other: normal adnexae, no masses and no tenderness Results AMB Test Urine AMB Test Urine Negative Last Edit by Mariza Brady CMA on 08/07/24 08:22 Assessment & Plan Assessment & Plan (1) Abnormal uterine bleeding (AUB): Comment: High-risk for breast cancer Code(s): N93.9 - Abnormal uterine and vaginal bleeding, unspecified Category: Medical Plan: Urine test done in the office was negative. Co testing done, GC and chlamydia taken CBC, TSH, prolactin, HCG, and pelvic ultrasound ordered. Discussed with the patient the different causes of abnormal bleeding including thyroid disorders, uterine and ovarian pathology, endometrial hyperplasia, carcinoma and other potential causes. Discussed with the patient the work up including CBC (to r/o anemia), TSH, prolactin, pelvic Ultrasound, endometrial biopsy to r/o endometrial pathology. All questions answered and the patient verbalized understanding. Instructed the patient to schedule an appointment for an endometrial biopsy in 2 weeks. Orders: Orders AMB HCG Urine Test Today Z32.02 - Encounter for test, result negative HCG Quantitative Today N93.9 - Abnormal uterine and vaginal bleeding, unspecified Complete Blood Count no Diff Today N93.9 - Abnormal uterine and vaginal bleeding, unspecified US pelvic and transvaginal Today N93.9 - Abnormal uterine and vaginal bleeding, unspecified TSH reflex Free T4 Today N93.9 - Abnormal uterine and vaginal bleeding, unspecified Prolactin Today N93.9 - Abnormal uterine and vaginal bleeding, unspecified Coding Level of Care Code New Pt Level 3 (42273) Diagnoses Abnormal uterine bleeding (AUB) N93.9
[2024-08-07 08:12] VITALS: BP 118/70; BMI 35.7
--- OUTSIDE RECORDS SUMMARY | 2024-08-07 22:54 | XMS_ITS | Data Portability ---
Author Organization ALO Gutierrez [facility] [id number] Address [address] [place] [address] Assessment No assessment recorded. Plan of Treatment Reminders Order Date Submit Date Provider Last Modified By Organization Details Last Modified Time Details Appointments None recorded. Lab None recorded. Referral None recorded. Procedures None recorded. Surgeries None recorded. Imaging None recorded. Medication Orders Aplisol 5 tub. unit/0.1 mL intradermal injection solution 2022 023 [email or web address] Not available 3 13:06:41 Patient TargetsNo targets recorded. Patient InstructionsNo instructions recorded. Reason for Referral None Reported. Procedures Surgical History Date Name Laterality Status Provider Name and Address Organization Details Recorded Time 3 OC- Physical completed GABRIEL Gutierrez [facility] 08/04/2023 12:07:45 Imaging Results None recorded. Procedure Notes None recorded. Medical Equipment None Reported. Medications Name Sig Start Date Stop Date Status Note LastModified by Organization Details LastModified Time cetirizine 10 mg tablet TAKE 1 TABLET BY MOUTH EVERY MORNING active Not Available Not Available No t Available azithromyc in 250 mg tablet active Not Available Not Available Not Available miconazole nitrate 2 % topical cream APPLY 1 APPLICATI ON TOPICALLY TWICE DAILY active Not Available Not Available No t Available ketotifen 0.025 % (0.035 %) eye drops active Not Available Not Available No t Available ondansetro n HCl 4 mg tablet TAKE 1 TABLET BY MOUTH EVERY 6 TO 8 HOURS NEEDED FOR NAUSEA DIRECTED active Not Available Not Available No t Available Aplisol 5 tub. unit/0.1 mL intraderma l injection solution Inject 0.1 mL by intraderm al route. 2022 active Billable units for PPD is one. Units are not the dose. Not Available Not Available Not Available prednisone 20 mg tablet TAKE 2 TABLETS BY MOUTH DAILY X 4 DAYS active Not Available Not Available No t Available bacitracin 500 unit/gram topical ointment APPLY TOPICALLY TO THE AFFECTED AREA THREE TIMES DAILY active Not Available Not Available No t Available aspirin 325 mg tablet,del ayed release TAKE 1 TABLET BY MOUTH EVERY DAY FOR 4 WEEKS STARTING THE DAY AFTER SURGERY DIRECTED active Not Available Not Available No t Available furosemide 20 mg tablet TAKE ONE TABLET EVERY MORNING FOR 5 DAYS active Not Available Not Available No t Available azelastine 137 mcg (0.1 %) nasal spray ADMINISTE R 1 SPRAY INTO EACH NOSTRIL TWICE DAILY active Not Available Not Available No t Available naproxen 500 mg tablet TAKE 1 TABLET BY MOUTH TWICE DAILY active Not Available Not Available No t Available Ventolin HFA 90 mcg/actuat ion aerosol inhaler INHALE 2 PUFFS BY MOUTH EVERY 6 HOURS IF NEEDED FOR WHEEZING active Not Available Not Available No t Available oxycodone 5 mg tablet TAKE 1 TABLET BY MOUTH EVERY 6 HOURS NEEDED FOR PAIN active Not Available Not Available No t Available Sudogest 12-hour 120 mg tablet,ext ended release active Not Available Not Available Not Available blood pressure test kit-large cuff Check blood pressure on arm as directed active Not Available Not Available No t Available Vitals None Recorded Social History None recorded. Functional Status None recorded. Mental Status None recorded. Family History Nothing Reported. Medical History No medical history recorded. Gynecological HistoryNo gynecological history recorded. Obstetrics History GPAL:G 0 P 0 0 0 0 Past Encounters Encounter ID Performer Location Encounter Start Date Encounter Closed Date Diagnosis/Indication Diagnosis SNOMED-CT Code Diagnosis ICD10 Code [id number] [place] [address] [facility] [address] [place] [address] 08/04/2023 10:58:12 08/04/2023 13:08:53 Tuberculosis screening 638031678 Z11.1 History an d physical examination, pre-employment 118320536 Z02.1 Health Concerns Section Related Observation LastModified by Organization Detai ls LastModified Time None Recorded Concern Status LastModified by Organization Details LastModified Time None Recorded Advance Directives Directive None Recorded Payers Encounter Date Sequence Insurance Name Policy Number Policy Sena Covered Member ID Sena Member ID Guarantor Name [facility] Rita Mahoney O[facility]yn Episode No OBEpisode recorded.
== END 2024-08-07 08:41 | disposition home or self-care (01) ==
PROVIDERS: PCP Pediatrics; Visit Provider Obstetrics & Gynecology
DX: N93.9 Abnormal uterine and vaginal bleeding, unspecified (principal); Z32.02 Encounter for pregnancy test, result negative
CPT/HCPCS: 99203

== ENCOUNTER 2024-08-07 08:53 | Outpatient (REF) | payer MEDICAID, SELFPAY ==
[2024-08-08 02:38] LABS: CT PCR NOT DETECTED (Not Detect.); NG PCR NOT DETECTED (Not Detect.)
[2024-08-08 11:32] LABS: HPV 16,18/45 See PAP report
== END 2024-08-07 08:54 | disposition home or self-care (01) ==
LOC: HO.LNP 08:53
PROVIDERS: Visit Provider Obstetrics & Gynecology
DX: N93.9 Abnormal uterine and vaginal bleeding, unspecified (principal)
CPT/HCPCS: 87491; 87591; 87624; 88175

== ENCOUNTER 2024-08-12 15:07 | Outpatient (REF) | payer MEDICAID, SELFPAY ==
--- OUTSIDE RECORDS SUMMARY | 2024-08-12 15:10 | XMS_ITS | Data Portability ---
Author Organization ALO Gutierrez [facility] [id number] Address [address] [place] [address] Assessment No assessment recorded. Plan of Treatment [...] Time 3 OC- Physical completed GABRIEL Gutierrez [facility] 08/04/2023 12:07:45 Imaging Results None recorded. [...] Diagnosis/Indication Diagnosis SNOMED-CT Code Diagnosis ICD10 Code [id number] [place] [address] [facility] [address] [place] [address] 08/04/2023 10:58:12 08/04/2023 13:08:53 Tuberculosis screening 927663782 Z11.1 History an d physical examination, pre-employment [id number] Z02.1 Health Concerns Section Related Observation LastModified by Organization Detai ls LastModified Time None Recorded Concern Status LastModified by Organization Details LastModified Time None Recorded Advance Directives Directive None Recorded Payers Encounter Date Sequence Insurance Name Policy Number Policy Sena Covered Member ID Sena Member ID Guarantor Name [facility] Episode No OBEpisode recorded.
== END 2024-08-12 15:08 | disposition home or self-care (01) ==
LOC: HO.US 15:07
PROVIDERS: PCP Pediatrics; Visit Provider Obstetrics & Gynecology
DX: N93.9 Abnormal uterine and vaginal bleeding, unspecified (principal)
CPT/HCPCS: 76830; 76856

== ENCOUNTER 2024-09-25 11:40 | Outpatient (REF) | payer MEDICAID, SELFPAY ==
--- OUTSIDE RECORDS SUMMARY | 2024-09-25 14:05 | XMS_ITS | Encounter Summary ---
Author Organization [employer] Address [address] [facility] 7 [place] [address] Care Team Providers Care Record Systems Analyst Name Role Phone Dina Cartagena MD Primary Care Provider Reason for Referral * Consultation (Routine) - Authorized Specialty Diagnoses / Procedures Referred By Elizabeth zhu Referred To Contact Behavioral Health Diagnoses Anxiety Dina Cartagena MD [address] [place] [address] Phone: tel: fax: Referral ID Status Reason Start Date Expiration Date Visits Requested Visits Authorized [id number] Authorized Specialty Services Required 09/25/2024 09/25/2025 1 1 * Consultation (Routine) - Pending Review Specialty Diagnoses / Procedures Referred By Elizabeth zhu Referred To Contact Gastroenterology Diagnoses Colon cancer screening Family history of colon polyps, unspecified Dina Cartagena MD [address] [place] [address] Phone: tel: fax: Referral ID Status Reason Start Date Expiration Date Visits Requested Visits Authorized [id number] Pending Review Specialty Services Required 09/25/2024 09/25/2025 1 1 Encounter Details Date Type Department Care Team ([facility] st Contact Info) Description 09/25/2024 9:45 AM EST Office Visit [facility] [address] [place], [place] [phone] Dina Cartagena MD [address] [place] [id number] 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 Dx); Encounter for routine history and physical examination; Colon cancer screening; Family history of colon polyps, unspecified; Elevated blood pressure reading in office without diagnosis of hypertension; Anxiety; SHAHRZAD on CPAP Social History Tobacco Use Types Packs/Day Years Used Date Smoking Tobacco: Every Day Cigarettes Passive Smoke Exposure: Current Smokeless Tobacco: Never Tobacco Cessation:Ready to Q uit: Not Asked; Counseling Given: Not Answered Depression Answer Date Recorded Patient Health Questionnaire-9 Score 6 09/25/2024 Patient Health Questionnaire-9 Score 6 09/25/2024 Last PHQ-9: Questionnaire Data Not on file 0 09/25/2024 Housing Stability Answer Date Recorded What is your housing situation today? I have verónicakvng mei 09/18/[address] you li ve. Do you have problems with any of the following? None of the above 09/18/2024 Food Insecurity Answer Date Recorded Within the past 12 months, y ou worried that your food would run out before you got money to buy more: Often true 09/18/2024 Within the past 12 months,th e food you bought just didn't last and you didn't have enough money to get more: Often true Transportation Answer Date Recorded In the past 12 months, has l ack of transportation kept you from medical appts, meetings, work or from getting things needed for daily living? No 09/18/2024 Utilities Answer Date Recorded In the past 12 months, has t he electric, gas, oil or water company threatened to shut off services in your home? No 09/18/2024 Depression Answer Date Recorded Patient Health Questionnaire-2 Score 2 09/25/2024 Internet Access Answer Date Recorded Internet Access Q1 Yes 09/18/2024 Internet Access Q2 Not on file 09/18/2024 Comments No Sex and Gender Information Value Date Recorded Sex Assigned at Female 06/27/2022 10:14 AM EDT Legal Sex Female 10:14 AM EDT Gender Identity Female 06/27/2022 10:14 AM EDT Sexual Orientation Straight 06/27/2022 10 :14 AM EDT documented as of this encounter Last Filed Vital Signs Vital Sign Reading Time Taken Comments Blood Pressure 140/92 09/25/2024 10:17 AM EST Pulse 91 09/25/2024 9:59 AM EST Temperature 36.4 ??C (97.5 ??F) 09/25/2024 9:59 AM ES T Respiratory Rate 20 09/25/2024 9:59 AM EST Oxygen Saturation 96% 09/25/2024 9:59 AM EST Inhaled Oxygen Concentration - - Weight 84.4 kg (186 lb) 09/25/2024 9:59 AM EST Height 151.1 cm (4' 11.5 ) 09/25/2024 9:59 AM ES T Body Mass Index 36.94 09/25/2024 9:59 AM EST documented in this encounter Plan of Treatment Upcoming Encounters Date Type Department Care Team (Late st Contact Info) Description 10/23/2024 9:15 AM EST Office Visit [facility] [address], [place] [phone] Dina Cartagena MD [address] [place], [place] [phone] Scheduled Orders Name Type Priority Associated Diagnoses Orde r Schedule Albumin, Random Urine W/Creatinine Lab Routine Encounter for routine history and physical examination Elevated blood pressure reading in office without diagnosis of hypertension Expected: 09/25/2024 (Approximate), Expires: 09/25/2025 Basic Metabolic Panel, Fasting Lab Routine Encounter for routine history and physical examination Elevated blood pressure reading in office without diagnosis of hypertension Expected: 09/25/2024 (Approximate), Expires: 09/25/2025 Hepatic Function Panel Lab Routine Encounter for routine history and physical examination Expected: 09/25/2024 (Approximate), Expires: 09/25/2025 Vitamin D, 25-Hydroxy, Total, Immunoassay Lab Routine Encounter for routine history and physical examination Expected: 09/25/2024 (Approximate), Expires: 09/25/2025 Lipid Panel, Standard Lab Routine Encounter for routine history and physical examination Expected: 09/25/2024 (Approximate), Expires: 09/25/2025 Scheduled Referrals Name Type Priority Associated Diagnoses Order Schedule Referral to Gastroenterology Outpatient Referral Routine Colon cancer screening Family history of colon polyps, unspecified Expected: 09/25/2024 (Approximate), Expires: 09/25/2025 Referral to Behavioral Health Outpatient Referral Routine Anxiety Expected: 09/25/2024 (Approximate), Expires: 09/25/2025 documented as of this encounter Visit Diagnoses Diagnosis Atypical ductal hyperplasia of right breast- Primary Encounter for routine history and physical examination Colon cancer screening Special screening for malignant neoplasms, colon Family history of colon polyps, unspecified Elevated blood pressure reading in office without diagnosis of hypertension Anxiety Anxiety state, unspecified SHAHRZAD on CPAP documented in this encounter Additional Health Concerns Assessment Noted Time PHQ-9 Depression Total Score: 6 09/25/19 25 10:17 AM EST documented as of this encounter Care Teams Record Systems Analyst Relationship Specialty Start Date End Date Dina Cartagena MD [address] [place] [address] PCP - General Family Medicine 08/28/18 Laverne Mahoney Airplane Pilot HelperMilling Planer Operator 12/07/23 documented as of this encounter
--- OUTSIDE RECORDS SUMMARY | 2024-09-25 14:05 | XMS_ITS | Encounter Summary ---
Author Organization [employer] Address [address] [facility] [address] [place] [address] Care Team Providers Care Enrolled Agent Name Role Phone Dina Cartagena MD Primary Care Provider [phone] Encounter Details Date Type Department Care Team (Latest Contact Info) Description 09/25/2024 Travel Social History Tobacco Use Types Packs/Day Years Used Date Smoking Tobacco: Every Day Cigarettes Passive Smoke Exposure: Current Smokeless Tobacco: Never Depression Answer Date Recorded Patient Health Questionnaire-9 Score 6 09/25/2024 Patient Health Questionnaire-9 Score 6 09/25/2024 Last PHQ-9: Questionnaire Data Not on file 0 09/25/2024 Housing Stability Answer Date Recorded What is your housing situation today? I have verónica mei 09/18/[address] you [...] AM EDT documented as of this encounter Plan of Treatment Upcoming Encounters Date Type Department Care Team (Late st Contact Info) Description 10/23/2024 9:15 AM EST Office Visit [facility] [address] [place] [address] Dina Cartagena MD [address] [place] [address] documented as of this encounter Visit Diagnoses Not on filedocumented in this encounter Additional Health Concerns Assessment Noted Time PHQ-9 Depression Total Score: 6 09/25/19 25 10:17 AM EST documented as of this encounter Care Teams Enrolled Agent Relationship Specialty Start Date End Date Dina Cartagena MD [address] [place] [address] PCP - General Family Medicine 08/28/18 Laverne Mahoney Rugby League FootballerHigh School Guidance Counselor 12/07/23 documented as of this encounter
--- OUTSIDE RECORDS SUMMARY | 2024-09-25 14:05 | XMS_ITS | Data Portability ---
Author Organization ALO Gutierrez [facility] [address] Address [address] [place] [address] Assessment No assessment recorded. Plan of Treatment [...] Time 3 OC- Physical completed GABRIEL Gutierrez [facility] 08/04/2023 12:07:45 Imaging Results None recorded. [...] Diagnosis/Indication Diagnosis SNOMED-CT Code Diagnosis ICD10 Code Diagnosis Note [id number] [place] [address] [facility] [address] [place] [address] 08/04/2023 10:58:12 08/04/2023 13:08:53 Tuberculosis screening [id number] Z11.1 History an d physical examination, pre-employment 405579544 Z02.1 Health Concerns Section Related Observation LastModified by Organization Detai ls LastModified Time None Recorded Concern Status LastModified by Organization Details LastModified Time None Recorded Advance Directives Directive None Recorded Payers Encounter Date Sequence Insurance Name Policy Number Policy Sena Covered Member ID Sena Member ID Guarantor Name 08/04/2023 [facility] [facility] Rita Mahoney OBGyliseth Episode No OBEpisode recorded.
--- OUTSIDE RECORDS SUMMARY | 2024-09-25 14:05 | XMS_ITS | Clinical Summary ---
Author Organization [facility] Address [address] [facility] 7[address] [place] [address] Care Team Providers Care Business Management Associate Name Role Phone Dina Cartagena MD Primary Care Provider Allergies Active Allergy Reactions Criticality Noted Date Comments Codeine 07/04/2012 Other reaction(s): SOB, TINGLING Dust Mite Extract 11/16/2022 Pineapple 11/16/2022 Polymyxin B Swelling 03/03/2023 Sulfa Antibiotics 07/15/2024 Medications Nasal Decongestant Newman 0.05 % nasal spray Newman 2 spray by intranasal route 3 times every day in each nostril in the morning and evening 30 mL 01/19/20 23 Active ketotifen (Zaditor) 0.025 % ophthalmic solution Administer 1 drop into affected eye(s) every 12 (twelve) hours. 10 mL 11 01/26/20 23 Active Blood Pressure kitIndications:P rimary hypertension To check the BP daily 1 kit 03/03/20 23 Active Elastic Bandages & Supports (TruForm Stockings 10-20mmHg) miscIndications: Venous insufficiency 10-20 mm Hg. Knee high 1 each 03/03/20 23 Active Mometasone Furoate (Asmanex HFA) 200 MCG/ACT aerosol Inhale 1 puff once daily for 2 weeks. May restart again if you develop cold symptoms with a cough. 13 g 1 10/26/19 24 Active cetirizine (ZyrTEC) 10 MG tablet TAKE 1 TABLET BY MOUTH EVERY MORNING 30 tablet 11 02/21/20 24 Active azelastine (Astelin) 0.1 % nasal spray ADMINISTER 1 SPRAY INTO EACH NOSTRIL TWICE DAILY 30 mL 12 02/26/20 Active ibuprofen (IBU) 800 MG tablet 1 tablet every 8 hours with food during menses, up to 7 days. 42 tablet 07/15/20 Active Ventolin HFA 108 (90 Base) MCG/ACT inhaler INHALE 2 PUFFS BY MOUTH EVERY 6 HOURS IF NEEDED FOR WHEEZING 18 g 3 07/19/20 Active SudoGest 12 Hour 120 MG 12 hr tablet TAKE 1 TABLET BY MOUTH EVERY 12 HOURS. DO NOT CRUSH, CHEW OR SPLIT 20 tablet 09/11/19 Active nicotine (Nicoderm, Step 2) 14 MG/24HR patch Place 1 patch on the skin 1 (one) time each day at the same time. 30 patch 09/10/19 25 2024 Active nicotine polacrilex (Commit) 2 MG lozenge Dissolve 1 lozenge (2 mg) in the mouth if needed for smoking cessation. 100 lozenge 09/25/19 25 2024 Active SudoGest 12 Hour 120 MG 12 hr tablet TAKE 1 TABLET BY MOUTH EVERY 12 HOURS. DO NOT CRUSH, CHEW OR SPLIT 20 tablet 02/26/20 24 2024 Discontinued nicotine (Nicoderm, Step 2) 14 MG/24HR patch Place 1 patch on the skin 1 (one) time each day at the same time. 2024 Discontinued(R eorder (will not trigger notification to Pharmacy)) Active Problems Problem Noted Date Diagnosed Date Atypical ductal hyperplasia of right breast 10/27 Cervical intraepithelial neoplasia grade 1 12/03 Encounters Date Type Department Care Team Description 09/25/2024 9:45 AM EST Office Visit [facility] [address] [place] [address] Dina Cartagena MD 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 Dx); Encounter for routine history and physical examination; Colon cancer screening; Family history of colon polyps, unspecified; Elevated blood pressure reading in office without diagnosis of hypertension; Anxiety; SHAHRZAD on CPAP 09/25/2024 Travel 09/18/2024 Patient Outreach [facility] [address] [place] [address] Dina Cartagena MD Care Coordination (CH[facility] outreach for SDOH PT-1 and food needs-referral completed /) 09/18/2024 Patient Outreach [facility] [address] [place] [address] Dina Cartagena MD Pre-visit Planning (SDOH positive, Tobacco screening negative. ) 09/09/2024 Refill [facility] [address] [place] [address] Dina Cartagena MD 09/09/2024 Refill [facility] [address] [place] [address] Dina Cartagena MD 07/23/2024 Telephone [facility] [address] [place] [phone] Peggy Mcghee RN Results; Referral 07/23/2024 Orders Only [facility] [address] [place] [phone] Kayla Garduno CNM Abnormal uterine bleeding (Primary Dx) 07/18/2024 Refill [facility] [address] [place] [address] Dina Cartagena MD 07/15/2024 10:30 AM EST Office Visit [facility] [address] [place] [phone] Kayla Garduno CNM Abnormal uterine bleeding (Primary Dx); Dysmenorrhea 07/15/2024 Travel 07/08/2024 Telephone [facility] [address] [place] [phone] Dina Cartagena MD Nurse Triage from Last 3 Months Family History Medical History Relation Name Comments Hypertension Brother Hypertension Father Hypertension Mother Hypertension Sister Relation Name Status Comments Brother Father Mother Sister Social History Tobacco Use Types Packs/Day Years [...] Orientation Straight 06/27/2022 10 :14 AM EDT Last Filed Vital Signs Vital Sign Reading [...] Mass Index 36.94 09/25/2024 9:59 AM EST Plan of Treatment Upcoming Encounters Date Type Department Care Team (Late st Contact Info) Description 10/23/2024 9:15 AM EST Office Visit [facility] [address] [place] [address] Dina Cartagena MD [address] [place] [address] Health Maintenance Due Date Last Done Comments Hepatitis B Vaccines (3 of 3 - 3-dose series) 07/09/2021 05/14/2021, 06/03/1997 COVID-19 Vaccine ( season) 2024 08/07/2023, 12/13/2021, 09/19/2020, Additional history exists Mammogram 05/18/2024 05/18/2022, 05/14/2022 Pap Smear 05/25/2025 05/25/2022, 090 02/2021, 04/07/2020 Family Planning (PISQ) 07/15/2025 07/15/2024 SDOH Screening 09/18/2025 09/18/2024 Alcohol/Substance Use Screening 09/25/2025 09/25/2024 Depression Screening 09/25/2025 09/25/2024, 09/25/19 25 Tobacco Screening 09/25/2025 09/25/2024 DTaP/Tdap/Td Vaccines (7 - Td or Tdap) 10/18/2026 10/18/2016, 03/31/2015, 03/27/2015, Additional history exists Cervical Cancer Screening 05/25/2027 HPV/Cotest 05/25/2027 05/25/2022, 09/0 02/2021, 04/07/2020, Additional history exists Lipid Panel 11/17/2027 11/16/2022 Zoster Vaccines (1 of 2) 2030 RSV Patients and Patients Aged 60 years or older (1 - 1-dose 75+ series) 2055 IPV Vaccines Completed 05/28/1988, 08/1983, 1980, Additional history exists HIV Screening Completed 05/04/2021 Hepatitis C Screening Completed 05/04/2021 Pneumococcal Vaccine: Pediatrics (0 to 5 Years) and At-Risk Patients (6 to 49) Years) Completed 08/07/2023, 12/07/2017 Influenza Vaccine Completed 06/28/2024, , 05/04/2021, Additional history exists HIB Vaccines Aged Out No longer eligi ble based on patient's age to complete this topic HPV Vaccines Aged Out No longer eligi ble based on patient's age to complete this topic Hepatitis A Vaccines Aged Out No long er eligible based on patient's age to complete this topic Meningococcal Vaccine Aged Out No elinor gautam eligible based on patient's age to complete this topic RSV under 20 months Aged Out No longe r eligible based on patient's age to complete this topic Rotavirus Vaccines Aged Out No longer eligible based on patient's age to complete this topic Procedures Procedure Name Priority Date/Time Associated Diagnosis Comments US PELVIS TRANSVAGINAL Routine 08/12/2024 3:20 PM EST PROLACTIN Routine 08/07/2024 8:44 AM EST Abnormal uterine bleeding HCG, TOTAL, QN Routine 08/07/2024 8:44 AM EST Abnormal uterine bleeding TSH W/REFLEX TO FT4 Routine 08/07/2024 8 :44 AM EST Abnormal uterine bleeding CBC Routine 08/07/2024 8:44 AM EST Abnormal uterine bleeding US PELVIS COMPLETE Urgent 07/22/2024 Abnormal uterine bleeding Dysmenorrhea US PELVIS TRANSVAGINAL Urgent 07/22/2024 Abnormal uterine bleeding Dysmenorrhea TSH W/REFLEX TO FT4 Routine 07/15/2024 1 1:00 AM EST Abnormal uterine bleeding POCT HEMOGLOBIN Routine 07/15/2024 10:24 AM EST Abnormal uterine bleeding LIPID PANEL, STANDARD Routine 11/16/2022 10:15 AM EDT Abnormal uterine bleeding THINPREP IMAGING PAP AND HPV MRNA E6/E7, WITH CT/NG, TRICHOMONAS Routine 05/25/2022 10:49 AM EDT MAMMOGRAM GENERIC Routine 05/18/2022 2:0 5 PM EDT ZZZ HISTORICAL HEPATITIS C AB W/REFL TO HCV RNA, QN, PCR Routine 05/04/2021 10:41 AM EDT HIV 1/2 ANTIGEN/ANTIBODY, FOURTH GENERATION W/RFL Routine 05/04/2021 10:41 AM EDT from Last 3 Months or Most Recently Relevant to Health Maintenance Results * US Pelvis Transvaginal (08/12/2024 3:20 PM EST) Only the most recent of2 resultswithin the time period is included. Anatomical Region Laterality Modality Pelvis Ultrasound 08/12/2024 3:20 PM EST Narrative 09/18/2024 5:43 AM EST ? [facility] ?[address] ?[place] [address] ? Ultrasound Report ? Signed ? Patient: Denzel,Rita ?MR#: [id number] ?? 87 ? : 1980 ?Acct:[id number] ? Age/Sex: 43 / F ?ADM Date: 08/12/24 ? Loc: HO.US ? Attending Dr: Paxton Darnell MD ? Ordering Physician: Paxton Darnell MD ?? Date of Service: 08/12/24 ?? Procedure(s): US pelvic and transvaginal ?? Accession Number(s): [id number] ? cc: Dina Cartagena MD; Paxton Darnell MD ? EXAMINATION: ? US PELVIS ? CLINICAL INFORMATION: ? Abnormal uterine bleeding, last menstrual period 08/01/2024. ? COMPARISON: ?? None available. ? TECHNIQUE: ?? Ultrasound of the pelvis is performed using both transabdominal and ?? transvaginal transducers along with Doppler. Transvaginal imaging is ?? performed due to inadequate visualization transabdominally. ? FINDINGS: ?? The anteverted uterus measures 10.0 x 5.0 x 4.3 cm. ? Diffusely heterogeneous myometrium. ? Endometrial thickness is 18 mm. Endometrium appears heterogeneous and ?? complex, although evaluation is limited due to bowel gas and uterine ?? positioning. Previous endometrial thickness 9 mm on 12/19/2022. ? Right ovary measures 3.5 x 2.1 x 2.7 cm, volume 10.5 mL. ? Left ovary measures 2.4 x 2.0 x 1.4 cm, volume 3.4 mL. ? 1.7 cm and 1.5 cm right ovarian cysts are likely simple, likely ?? physiologic. ? US/US pelvic and transvaginal ?? IMPRESSION: ?? 1. Endometrial thickness is 18 mm. Endometrium appears heterogeneous ?? and complex, although evaluation is limited due to bowel gas and ?? uterine positioning. Previous endometrial thickness 9 mm on 12/19/2022. ? 2. Diffusely heterogeneous myometrium. ? Electronically signed by: ??Emely Carvalho MD ??09/18/2024 05:40 AM EST ? Dictated By: ?Emely Carvalho MD ? Signed By: ?<Electronically signed by Emely Carvalho MD in OV> ? 09/18/24 0540 ? DD/ 1520 ? TD/TT: 08/12/24 1532 ? Dry Cleaning Counter Clerk: ? Procedure Note Donotjuancarlosinterpreter, Image - 09/18/2024 [place] [address] Ultrasound Report Signed Patient: Lyla Mahoney#: [id number] 87 : 1980Acct:[id number] Age/Sex: 43 / FADM Date: 08/12/24 Loc: HO.US Attending Dr: Paxton Darnell MD Ordering Physician: Paxton Darnell MD Date of Service: 08/12/24 Procedure(s): US pelvic and transvaginal Accession Number(s): [id number] cc: Dina Cartagena MD; Paxton Darnell MD EXAMINATION: US PELVIS CLINICAL INFORMATION: Abnormal uterine bleeding, last menstrual period 08/01/2024. COMPARISON: None available. TECHNIQUE: Ultrasound of the pelvis is performed using both transabdominal and transvaginal transducers along with Doppler. Transvaginal imaging is performed due to inadequate visualization transabdominally. FINDINGS: The anteverted uterus measures 10.0 x 5.0 x 4.3 cm. Diffusely heterogeneous myometrium. Endometrial thickness is 18 mm. Endometrium appears heterogeneous and complex, although evaluation is limited due to bowel gas and uterine positioning. Previous endometrial thickness 9 mm on 12/19/2022. Right ovary measures 3.5 x 2.1 x 2.7 cm, volume 10.5 mL. Left ovary measures 2.4 x 2.0 x 1.4 cm, volume 3.4 mL. 1.7 cm and 1.5 cm right ovarian cysts are likely simple, likely physiologic. US/US pelvic and transvaginal IMPRESSION: 1. Endometrial thickness is 18 mm. Endometrium appears heterogeneous and complex, although evaluation is limited due to bowel gas and uterine positioning. Previous endometrial thickness 9 mm on 12/19/2022. 2. Diffusely heterogeneous myometrium. Electronically signed by: Emely Carvalho MD 09/18/2024 05:40 AM EST Dictated By: Emely Carvalho MD Signed By: <Electronically signed by Emely Carvalho MD in OV> 09/18/24 0540 DD/ 1520 TD/TT: 08/12/24 1532 Dry Cleaning Counter Clerk: us [facility] External Provider IMG US PROCEDURES Final Result * TSH with Reflex to Free T4 (08/07/2024 8:44 AM EST) Only the most recent of2 resultswithin the time period is included. TSH reflex Free T4 0.85 0.32 - 4.0 uIU/mL [facility] 08/07/2024 8:44 AM EST 08/07/2024 8:47 AM EST us Generic External Data Provider LAB BLOOD ORDERAB LES Final Result [facility] [address] [place] [phone] * Prolactin (08/07/2024 8:44 AM EST) Prolactin 11.7 ng/mL [facility] Comment:Reference Range Fema les Non- 3.0-30.0 10.0-209.0 Postmenopausal 2.0-20.0THIS TEST WAS PERFORMED AT:[facility] [place] [id number] MEAD MD 08/07/2024 8:44 AM EST 08/07/2024 8:47 AM EST us Generic External Data Provider LAB BLOOD ORDERAB LES Final Result [facility] [address] [place] [address] [phone] * CBC (08/07/2024 8:44 AM EST) White Blood Count 9.3 4.8 - 10.8 X10*3/uL [facility] Red Blood Count 4.86 4.20 - 5.50 X10*6/uL [facility] Hemoglobin 13.5 12.0 - 16.0 g/dl [facility] Hematocrit 39.3 37.0 - 47.0 % [facility] Mean Corpuscular Volume 80.9 80.0 - 98.0 fL [facility] Mean Corpuscular Hemoglobin 27.8 27.0 - 33.0 pg [facility] Mean Corpuscular HGB Conc 34.4 31.0 - 35.0 g/dl [facility] Red Cell Distribution Width 15.5 11.0 - 16.0 % [facility] Platelet Count 269 160 - 400 X10*3/uL [facility] Mean Platelet Volume 10.1 9.4 - 12.3 fL [facility] NRBC Pct Auto 0.0 0.0 - 0.2 /100WBC [facility] NRBC Abs Auto 0.000 0.0 - 0.012 X10*3/uL [facility] 08/07/2024 8:44 AM EST 08/07/2024 8:47 AM EST us Generic External Data Provider LAB BLOOD ORDERAB LES Final Result Performing Organization Address [facility] Co de Phone Number [facility] [address] [place] [address] [phone] * hCG, Total, Quantitative (08/07/2024 8:44 AM EST) HCG Quantitative <2 mIU/mL [facility] Comment:Weeks post LMP Appro ximate hCG(Last Menstrual Period) Range (mIU/ml)3 - 4 weeks 9 - 1304 - 5 weeks 75 - 2,6005 - 6 weeks 850 - 20,8006 - 7 weeks 4000 - 100,2007 - 12 weeks 11,500 - 289,00671 - 16 weeks 18,300 - 137,62428 - 29 weeks (2nd trimester) 1,400 - 53,58259 - 41 weeks (3rd trimester) 940 - 60,000The Samson B- hCG assay is used for the early detection ofpregnancy; it cannot be used to diagnose any conditionunrelated to . If a B-hCG level is not supportedby the clinical evidence, results should be confirmed by analternative method (qualitative urine hCG, for example). 08/07/2024 8:44 AM EST 08/07/2024 8:47 AM EST us Generic External Data Provider LAB BLOOD ORDERAB LES Final Result Performing Organization Address [facility] Co de Phone Number [facility] [address] [place] [address] [phone] * Us Pelvis complete (07/22/2024) Anatomical Region Laterality Modality Pelvis Ultrasound us Kayla Garduno CNM IMG US PROCEDURES Final R esult * POCT hemoglobin docked device (07/15/2024 10:24 AM EST) Hemoglobin 12.6 12.0 - 15.0 QC Media Lot # [id number] Lot# Expiration Date [id number] Blood 07/15/2024 10:2 4 AM EST us Kayla Gleasonprettydalila GUILLERMINA POINT OF CARE TEST ENTER/ EDIT ORDERABLES Final Result * (ABNORMAL) Lipid Panel, Standard (11/16/2022 10:15 AM EDT) Cholesterol, Total 189 <200 mg/dL [facility] HDL Cholesterol 55 > OR = 50 mg/dL [facility] Triglycerides 165(H) <150 mg/dL [facility] LDL Cholesterol 106(H) mg/dL (calc) [facility] Comment: Reference range: <100 Desirable range <100 mg/dL for primary prevention; ?? <70 mg/dL for patients with CHD or diabetic patients with > or = 2 CHD risk factors. LDL-C is now calculated using the Horace calculation, which is a validated novel method providing better accuracy than the Friedewald equation in the estimation of LDL-C. Wilfrid SS et al. LAVELL. 2013;310(19): 3466-6977 (http://education.[employer]/faq/TXS064) Chol/HDLC Ratio 3.4 <5.0 (calc) [facility] Non-HDL Cholesterol 134(H) <130 mg/dL (calc) [facility] Comment: For patients with diabetes plus 1 major ASCVD risk factor, treating to a non-HDL-C goal of <100 mg/dL (LDL-C of <70 mg/dL) is considered a therapeutic option. Blood Venous blood specimen / Unknown 11/16/2022 10:15 AM EDT 11/16/2022 10:16 AM EDT Narrative [facility] - 11/17/2022 1:47 AM EDT FASTING:YES FASTING: YES Nargis Barrow MD LAB BLOOD ORDERABLES Final Resul t [facility] [address], [place] [address] [facility] [address] [place] [address] * THINPREP TIS PAP AND HPV mRNA E6/E7, CT/NG, TRICH (05/25/2022 10:49 AM EDT) Chlamydia trachomatis RNA, TMA, Urogenital NOT DETECTED NOT DETECTED CONVERTED [facility] Clinical Information: NIL/NEG 04/2021/HX SOPHIA 2/3 IN 2017 CONVERT[facility] LABS COMMENT SEE COMMENT ELI D [facility] Comment: The analytical performance characteristics of this assay, when used to test SurePath(TM) specimens have been determined by [facility]. The modifications have not been cleared or approved by the FDA. This assay has been validated pursuant to the CLIA regulations and is used for clinical purposes. ?? For additional information, please refer to https://[employer].G3/faq/YUH735 (This link is being provided for information/ educational purposes only.) ?? COMMENT SEE COMMENT ELI Anaya [facility] Comment: EXPLANATORY NOTE: ? The Pap is a screening test for cervical cancer. It is ?? not a diagnostic test and is subject to false negative ?? and false positive results. It is most reliable when a ?? satisfactory sample, regularly obtained, is submitted ?? with relevant clinical findings and history, and when ?? the Pap result is evaluated along with historic and ?? current clinical information. ?? COMMENT: This Pap test has been evaluated with computer assisted technology. CONVERTED [employer] Color Print Inspector: SEE COMMENT CONVERTED [facility] Comment: [facility], CT(ASCP) CT screening location: [address] ??[address] HPV nRNA E6/E7 Not Detected Not Detected CONVERTED [employer] Comment: Methodology: Time Study Observer-Mediated Amplification This assay detects E6/E7 viral messenger RNA (mRNA) from 14 high-risk HPV types (16,18,31,33,35,39,45,51,52,56,58,59,66,68). ? Cervical sources are required for HPV testing. If a vaginal source from a patient who has had a total hysterectomy with removal of cervix was ?? submitted, please contact the testing laboratory for alternative testing options. ?? For additional information, please refer to http://[employer].G3/faq/FGA068y3 (This link if provided for information/ educational purposes only.) Infection Shift in vaginal dhara suggestive of bacterial vaginosis. [facility] Interpretation/Re sult: Negative for intraepithelial lesion or malignancy. [facility] LMP: 05/01/22 [facility] Neisseria gonorrhoeae RNA, TMA, Urogenital NOT DETECTED NOT DETECTED [facility] Prev. BX: NONE GIVEN [facility]ED [facility] Prev. PAP: NONE GIVEN CONVERTE D [facility]GAC[facility] LAB[facility] SOURCE: None given [facility] Statement Of Adequacy: SEE COMMENT [facility] Comment: Satisfactory for evaluation. Endocervical/transformation zone component present. Trichomonas vaginalis, QL, TMA, PAP Vial NOT DETECTED NOT DETECTED [facility] Comment: The analytical performance characteristics of this assay have been determined by [facility]. The modifications have not been cleared or approved by the FDA. This assay has been validated pursuant to the CLIA regulations and is used for clinical purposes. ?? For additional information, please refer to http://education.G3/ faq/Trichomonastma (This link is being provided for information/ educational purposes only.) ?? 05/25/2022 10:4 9 AM EDT Kayla Garduno [facility] LAB PATHOLOGY ORDERABLES Final Result [facility] * Mammography Report 1 (05/18/2022 2:05 PM EDT) Anatomical Region Laterality Modality Breast Bilateral Mammography 05/18/2022 2:05 PM EDT Narrative 05/18/2022 4:00 PM EDT Refer to the Notes tab for result details [facility] Procedure: Mammography Report 1 Procedure Note Provider, MD [place] - 11/20/2022 Refer to the Notes tab for result details [facility] Procedure: Mammography Report 1 us Dina Cartagena MD IMG BI PROCEDURES Final Resul t * HEPATITIS C AB W/REFL TO HCV RNA, QN, PCR (05/04/2021 10:41 AM EDT) HEPATITIS C ANTIBODY NON-REACT JOSEMANUEL NON-REACT [facility] INDEX 0.02 <1.00 [facility] Comment: ?? HCV antibody was non-reactive. There is no laboratory ?? evidence of HCV infection. ?? In most cases, no further action is required. However, if recent HCV exposure is suspected, a test for HCV RNA (test code 18751) is suggested. ?? For additional information please refer to http://[employer].G3/faq/NBR02a3 (This link is being provided for informational/ educational purposes only.) ?? 05/04/2021 10:4 1 AM EDT Kayla Garduno CNM HISTORICAL/NON ORDERABLE LABS Final Result Performing Organization Address [facility] de Phone Number [facility] [address] * HIV 1/2 ANTIGEN/ANTIBODY,FOURTH GENERATION W/RFL (05/04/2021 10:41 AM EDT) HIV-1/2 ANTIGEN AND ANTIBODIES, 4TH GENERATION W/ REFLEX NON-REACT JOSEMANUEL NON-REACT JOSEMANUEL [facility] Comment: HIV-1 antigen and HIV-1/HIV-2 antibodies were not detected. There is no laboratory evidence of HIV infection. ?? PLEASE NOTE: This information has been disclosed to you from records whose confidentiality may be protected by state law. ??If your state requires such protection, then the state law prohibits you from making any further disclosure of the information without the specific written consent of the person to whom it pertains, or as otherwise permitted by law. A general authorization for the release of medical or other information is NOT sufficient for this purpose. ? For additional information please refer to http://[employer].G3/faq/JLW266 (This link is being provided for informational/ educational purposes only.) ? The performance of this assay has not been clinically validated in patients less than 2 years old. ?? 05/04/2021 10:4 1 AM EDT Kayla SARMIENTO LAB BLOOD ORDERABLES Odette l Result [facility] [address] [place] [address], from Last 3 Months or Most Recently Relevant to Health Maintenance [place] [address] [place] [address] C3 Care Teams Business Management Associate Relationship Specialty Start Date End Date Dina Cartagena MD [address] [place] [address] PCP - General Family Medicine 08/28/18 Laverne Mahoney [employer] Manager[employer] Retailer 12/07/23
--- OUTSIDE RECORDS SUMMARY | 2024-09-25 14:05 | XMS_ITS | Encounter Summary ---
Author Organization [employer] Address [address] [facility] 7 [place] [address] Care Team Providers Care Motor Equipment Captain Name Role Phone Dina Cartagena MD Primary Care Provider [phone] Reason for Visit * Reason Comments Pre-visit Planning SDOH positive, Tobac co screening negative. Encounter Details Date Type Department Care Team ([facility] Contact Info) Description 09/18/2024 Patient Outreach [facility] MED [facility] PEDS [address] [place], [place] [phone] Dina Cartagena MD [address] [place] [address] Pre-visit Planning (SDOH positive, Tobacco screening negative. ) Social History Tobacco Use Types Packs/Day Years Used Date Smoking Tobacco: Every Day Cigarettes Passive Smoke Exposure: Current Smokeless Tobacco: Never Housing Stability Answer Date Recorded What is [...] t he electric, gas, oil or water Sub[employer] Control threatened to shut off services in your home? No 09/18/2024 Internet Access Answer Date Recorded Internet Access Q1 Yes 09/18/2024 Internet Access Q2 Not on file 09/18/2024 Comments No Sex and Gender Information Value Date Recorded Sex Assigned at Female 06/27/2022 10:14 AM EDT Legal Sex Female 10:14 AM EDT Gender Identity Female 06/27/2022 10:14 AM EDT Sexual Orientation Straight 06/27/2022 10 :14 AM EDT documented as of this encounter Progress Notes * Estefany Ramirez - 09/18/2024 10:17 AM EST CC Estefany Rod placed successful outbound call to patient for pre-visit planning. Patient name and confirmed. Patient confirms appt date and time, and has transportation arrangements. Biggest concern for appointment at this time is no concerns. Appropriate screenings completed in anticipation ofappointment. SDOH positive, Patient needs assistance with food insecurities. documented in this encounter Plan of Treatment Upcoming Encounters Date Type Department Care Team (Late st Contact Info) Description 10/23/2024 9:15 AM EST Office Visit [facility] MED & PEDS [address] [place] [address] Dina Cartagena MD [address] [place] [address] documented as of this encounter Visit Diagnoses Not on filedocumented in this encounter Care Teams Motor Equipment Captain Relationship Specialty Start Date End Date Dina Cartagena MD [address] [place] [address] PCP - General Family Medicine 08/28/18 Laverne Mahoney Word Processing OperatorDrywall Taper 12/07/23 documented as of this encounter
--- OUTSIDE RECORDS SUMMARY | 2024-09-25 14:05 | XMS_ITS | Encounter Summary ---
Author Organization [employer] Address 75 [facility] 7t [place] [address] Care Team Providers Care Bladder Tier Name Role Phone Dina Cartagena MD Primary Care Provider [phone] Encounter Details Date Type Department Care Team (Late Contact Info) Description 11/30/2022 Orders Only [facility] [address] [place] [address] Nargis Barrow MD [address] [place] [address] Abnormal uterine bleeding (Primary Dx) Social History Tobacco Use Types Packs/Day Years Used Date Smoking Tobacco: Every Day Cigarettes Comments Unknown Sex and Gender Information Value Date Recorded Sex Assigned at Female 06/27/2022 10:14 AM EDT Legal Sex Female 10:14 AM EDT Gender Identity Female 06/27/2022 10:14 AM EDT Sexual Orientation Straight 06/27/2022 10 :14 AM EDT COVID-19 Exposure Response Date Recorded In the last 10 days, have yo u been in contact with someone who was confirmed or suspected to have Coronavirus/COVID-19? No / Unsure 11/16/2022 9:39 AM EDT documented as of this encounter Plan of Treatment Upcoming Encounters Date Type Department Care Team (Late st Contact Info) Description 10/23/2024 9:15 AM EST [facility] [address] [place] [address] Dina Cartagena MD [address] [place] [address] documented as of this encounter Procedures Procedure Name Priority Date/Time Associated Diagnosis Comments SARS COV2/INFLUENZA A/B AND RSV RNA QL NAAT Routine 05/06/2023 4:29 PM EDT Abnormal uterine bleeding BASIC METABOLIC PANEL, FASTING Routine 04/04/2023 10:38 AM EDT Abnormal uterine bleeding CULTURE, URINE, ROUTINE Routine 12/19/2022 8:52 PM EDT Abnormal uterine bleeding URINALYSIS, COMPLETE, WITH REFLEX TO CULTURE Routine 12/19/2022 8:26 PM EDT Abnormal uterine bleeding SLIDE REVIEW Routine 12/19/2022 8:21 PM EDT Abnormal uterine bleeding CBC WITH AUTO DIFFERENTIAL Routine 12/19/2022 8:21 PM EDT Abnormal uterine bleeding PROTHROMBIN TIME-INR Routine 12/19/2022 8:21 PM EDT Abnormal uterine bleeding HCG, TOTAL, QN Routine 12/19/2022 8:21 PM EDT Abnormal uterine bleeding LIPASE Routine 12/19/2022 8:21 PM EDT Abnormal uterine bleeding HEPATIC FUNCTION PANEL Routine 12/19/2022 8:21 PM EDT Abnormal uterine bleeding BASIC METABOLIC PANEL Routine 12/19/2022 8:21 PM EDT Abnormal uterine bleeding documented in this encounter Results * SARS-CoV-2 RNA, Influenza A/B, and RSV RNA, Ql NAAT (05/06/2023 4:29 PM EDT) Influenza A PCR NEGATIVE Negative [facility] Influenza B PCR NEGATIVE Negative [facility] Resp Syncy Virus RNA Qual PCR NEGATIVE Negative [facility] SARS COV2 PCR NEGATIVE Negative [facility] Comment:All test results mus t be correlated with clinical findings.Negative results do not preclude SARS-CoV2, influenza Avirus, influenza B virus and/or RSV infectionand should not be used as the sole basis for treatment orother patient management decisions. Negative results must becombined with clinical observations, patient history, andepidemiological information.This test has not been evaluated for monitoring treatment ofinfection.This test has been authorized by the FDA under an EmergencyUse Authorization (EUA) for use by authorized laboratories.Testing performed on the [employer] GeneXpert utilizingreal-time RT-PCR.All SARS CoV2 and positive influenza A/B results arereported to [facility]. 05/06/2023 4:29 PM EDT 05/06/2023 4:32 PM EDT [facility] Exter nal Provider LAB MICROBIOLOGY - GENERAL ORDERABLES Final Result [facility] [address] [place] [phone] * (ABNORMAL) Basic Metabolic Panel, Fasting (04/04/2023 10:38 AM EDT) Sodium 140 135 - 145 mmol/L [facility] Potassium 3.8 3.3 - 5.1 mmol/L [facility] Chloride 107 96 - 108 mmol/L [facility] Carbon Dioxide 25 22 - 29 mmol/L [facility] Anion Gap 12 12 - 20 [facility] Urea Nitrogen (BUN) 9 9 - 16 mg/dL [facility] Creatinine, Serum 0.67 0.5 - 1.4 mg/dL [facility] Estimated Glomerular Filt Rate >60 [facility] Comment:NOTE: For -Am erican individuals, multiply the result by 1.210.Chronic Kidney Disease: Estimated GFR < 60 mL/min/1.40b2Tonrxc Kidney Disease: Estimated GFR < 15 mL/min/1.73m2 Glucose Fasting 58(LL) 60 - 99 mg/dL [facility] Comment:Critical value for t est(s):FBS Results called to and readback by: MARISEL Tadeo LPN Person calling:MARTHA Date:04/04/23Time:1610 Calcium 9.0 8.4 - 10.2 mg/dL [facility] 04/04/2023 10:3 8 AM EDT 04/04/2023 2:26 PM EDT Yong Naylor MD LAB BLOOD ORDERABLES Final Result Performing Organization Address City/[facility]/ZIP Co de Phone Number [facility] [address] [place] [address] [phone] * Culture, Urine, Routine (12/19/2022 8:52 PM EDT) 12/19/2022 8:52 PM EDT 12/19/2022 8:52 PM EDT Comment:UACC Narrative [facility] - 12/21/2022 8:29 AM EDT Urine Culture No growth. Specimen Source: Urine clean catch [facility] Exter nal Provider LAB MICROBIOLOGY - GENERAL ORDERABLES Final Result Performing Organization Address City/[facility] Co de Phone Number [facility] [address] [place] [phone] * (ABNORMAL) Urinalysis, Complete, with Reflex to Culture (12/19/2022 8:26 PM EDT) Color Urine Sugar Run [facility] Appearance Urine Hazy [facility] PH 5.0 5.0 - 9.0 [facility] Glucose Urine UA Negative Negative mg/dL [facility] Urine Blood Large (3+)(A) Negative [facility] Specific [place] - Urine 1.025 1.005 - 1.025 [facility] Urine Protein Trace Neg-Trace mg/dL [facility] Urine Ketones Negative Negative mg/dL [facility] Nitrite Urine Negative Negative [facility] Leukocyte Esterase Urine Negative Negative [facility] RBC Urine >20(A) 0 - 2 /HPF [facility] Urine WBC 6-10(A) 0 - 5 /HPF [facility] Urine Squamous Epithelial Cell 3-5 0 - 2 /HPF [facility] Urine Bacteria None Seen None Seen [facility] Hyaline Casts, Urine 0-2 0 - 2 /LPF [facility] 12/19/2022 8:26 PM EDT 12/19/2022 8:31 PM EDT Narrative [facility] - 12/19/2022 8:50 PM EDT [id number], Clean Catch [facility] External Provider LAB URI NE ORDERABLES Final Result Performing Organization Address [facility]/ZIP Co de Phone Number [facility] [address] [place] [phone] * HCG, Total, Quantitative (12/19/2022 8:21 PM EDT) HCG Quantitative <2 mIU/mL [facility] Comment:Weeks post LMP Appro ximate hCG(Last Menstrual Period) Range (mIU/ml)3 - 4 weeks 9 - 1304 - 5 weeks 75 - 2,6005 - 6 weeks 850 - 20,8006 - 7 weeks 4000 - 100,2007 - 12 weeks 11,500 - 289,60031 - 16 weeks 18,300 - 137,10677 - 29 weeks (2nd trimester) 1,400 - 53,10201 - 41 weeks (3rd trimester) 940 - 60,000The Samson B- hCG assay is used for the early detection ofpregnancy; it cannot be used to diagnose any conditionunrelated to . If a B-hCG level is not supportedby the clinical evidence, results should be confirmed by analternative method (qualitative urine hCG, for example). 12/19/2022 8:21 PM EDT 12/19/2022 8:24 PM EDT [facility] External Provider LAB BLO OD ORDERABLES Final Result Performing Organization Address [facility]/ZIP Co de Phone Number [facility] [address] [place] [phone] * Lipase (12/19/2022 8:21 PM EDT) Lipase 28 8 - 78 U/L [facility] 12/19/2022 8:21 PM EDT 12/19/2022 8:24 PM EDT [facility] External Provider LAB BLO OD ORDERABLES Final Result [facility] [address] [place] [address] [phone] * (ABNORMAL) Basic Metabolic Panel (12/19/2022 8:21 PM EDT) Sodium 142 135 - 145 mmol/L [facility] Potassium 4.1 3.3 - 5.1 mmol/L [facility] Chloride 107 96 - 108 mmol/L [facility] Carbon Dioxide 26 22 - 29 mmol/L [facility] Anion Gap 13 12 - 20 [facility] Urea Nitrogen (BUN) 15 9 - 16 mg/dL [facility] Creatinine, Serum 0.75 0.5 - 1.4 mg/dL [facility] Creatinine Clr Calc Pharmacy 92.5 [facility] Comment:Provided height and weight: 152.4 cm,81.647 kg.eGFR (calculated from the MDRD study equation) and eCrCl(calculated from the Cockcroft-Gault equation) are based ondifferent parameters and may not yield comparable results.If eCrCl result is absurd, please check patient'sheight/weight. Estimated Glomerular Filt Rate >60 [facility] Comment:NOTE: For -Am erican individuals, multiply the result by 1.210.Chronic Kidney Disease: Estimated GFR < 60 mL/min/1.98u4Nvdfnq Kidney Disease: Estimated GFR < 15 mL/min/1.73m2 Glucose 118(H) 60 - 115 mg/dL [facility] Calcium 9.4 8.4 - 10.2 mg/dL [facility] 12/19/2022 8:21 PM EDT 12/19/2022 8:24 PM EDT [facility] External Provider LAB BLO OD ORDERABLES Final Result Performing Organization Address [facility]/ZIP Co de Phone Number [facility] [address] [place] [address] [phone] * Hepatic Function Panel (12/19/2022 8:21 PM EDT) Bilirubin, Total 0.2 0.0 - 1.0 mg/dL [facility] Bilirubin, Direct <0.2 0.0 - 0.5 mg/dL [facility] Aspartate Amino Transferase 16 5 - 31 U/L [facility] Alanine Aminotransferase 17 0 - 31 U/L [facility] Total Protein 7.0 6.5 - 8.0 g/dL [facility] Albumin Level 4.0 3.5 - 5.0 g/dL [facility] Alkaline Phosphatase 102 39 - 117 U/L [facility] 12/19/2022 8:21 PM EDT 12/19/2022 8:24 PM EDT [facility] External Provider LAB BLO OD ORDERABLES Final Result Performing Organization Address [facility] Co de Phone Number [facility] [address] [place] [address] [phone] * Slide Review (12/19/2022 8:21 PM EDT) Slide Review VERIFIED [facility] 12/19/2022 8:21 PM EDT 12/19/2022 8:24 PM EDT Result [facility] External Provider LAB BLO OD ORDERABLES Final Result Performing Organization Address [facility] Co de Phone Number [facility] [address] [place] [address] [phone] * Prothrombin Time-INR (12/19/2022 8:21 PM EDT) Pathologist [facility] Prothrombin Time 10.4 10.0 - 13.1 SEC [facility] INTERNATIONAL NORM RATIO 0.9 0.9 - 1.1 [facility] Comment:INTERNATIONAL NORMAL IZED RATIO (INR) REFERENCE RANGES Reference RangeFor patients not on anticoagulant therapy: 0.9 - 1.1INR ranges for oral anticoagulanttherapy:For prevention and treatment of venous thrombosis and pulmonary embolism: 2.0 - 3.0For acute myocardial infarction with aspirin therapy: 2.0 - 3.0For acute myocardial infarction without aspirin therapy: 3.0 - 4.0For patients with mechanical prosthetic heart valves: 2.5 - 3.5 12/19/2022 8:21 PM EDT 12/19/2022 8:24 PM EDT us [facility] External Provider LAB BLO OD ORDERABLES Final Result Performing Organization Address City/State/[facility] Co de Phone Number [facility] [address] [place] [phone] * (ABNORMAL) CBC auto differential (12/19/2022 8:21 PM EDT) [facility] White Blood Count 13.0(H) 4.8 - 10.8 X10*3/uL [facility] Red Blood Count 5.27 4.20 - 5.50 X10*6/uL [facility] Hemoglobin 14.6 12.0 - 16.0 g/dl [facility] Hematocrit 43.1 37.0 - 47.0 % [facility] Mean Corpuscular Volume 81.8 80.0 - 98.0 fL [facility] Mean Corpuscular Hemoglobin 27.7 27.0 - 33.0 pg [facility] Mean Corpuscular HGB Conc 33.9 31.0 - 35.0 g/dl [facility] Red Cell Distribution Width 15.2 11.0 - 16.0 % [facility] Platelet Count 220 160 - 400 X10*3/uL [facility] Mean Platelet Volume 10.4 9.4 - 12.3 fL [facility] Neutrophils Percent Auto 58.1 45 - 73 % [facility] Imm Gran Pct Auto 0.5(H) 0.0 - 0.4 % [facility] Lymphocytes Percent Auto 32.5 20 - 40 % [facility] Monocytes Percent Auto 5.6 2 - 11 % [facility] Eosinophils Percent Auto 2.8 0 - 4 % [facility] Basophils Percent Auto 0.5 0 - 2 % [facility] NRBC Pct Auto 0.0 0.0 - 0.2 /100WBC [facility] Neutrophils Absolute Auto 7.6 2.0 - 8.3 x10*3/uL [facility] Imm Gran Abs Auto 0.06(H) 0.00 - 0.03 X10*3/uL [facility] Lymphocytes Absolute Auto 4.2 1.2 - 4.9 X10*3/uL [facility] Monocytes Absolute Auto 0.7 0.1 - 1.2 X10*3/uL [facility] Eosinophils Absolute Auto 0.4 0.0 - 0.4 X10*3/uL [facility] Basophils Absolute Auto 0.1 0.0 - 0.2 X10*3/uL [facility] NRBC Abs Auto 0.000 0.0 - 0.012 X10*3/uL [facility] 12/19/2022 8:21 PM EDT 12/19/2022 8:24 PM EDT us [facility] External Provider LAB BLO OD ORDERABLES Edited Result - Final [facility] [address] [place] [phone] documented in this encounter Visit Diagnoses Diagnosis Abnormal uterine bleeding- Primary Unspecified disorder of menstruation and other abnormal bleeding from female genital tract documented in this encounter Care Teams Bladder Tier Relationship Specialty Start Date End Date Dina Cartagena MD [address] [place] [phone] PCP - General Family Medicine 08/28/18 Laverne Mahoney Post Hole Digging Machine OperatorAutomatic Fancy Machine Operator 12/07/23 documented as of this encounter
--- OUTSIDE RECORDS SUMMARY | 2024-09-25 14:05 | XMS_ITS | Clinical Summary ---
Author Organization [facility] ity Address [address] [place] [address] Care Team Providers Care Road Gang Supervisor Name Role Phone Unavailable Primary Care Provider Unavailabl e Social History Tobacco Use Types Packs/Day Years Used Date Smoking Tobacco: Never Assessed Sex and Gender Information Value Date Recorded Sex Assigned at Not on file Gender Identity Not on file Sexual Orientation Not on file Plan of Treatment Health Maintenance Due Date Last Done Comments Breast Cancer Screening 1980 DTaP,Tdap,and Td Vaccines (1 - Tdap) 1999 Hepatitis B Vaccines (1 of 3 - 19+ 3-dose series) 1999 Cervical Cancer Screening: P ap Smear 2001 COVID-19 Vaccine (2023-2 5 season) 2024 Influenza Vaccine (#1) 2024 HIB Vaccines Aged Out No longer eligi ble based on patient's age to complete this topic HPV Vaccines Aged Out No longer eligi ble based on patient's age to complete this topic Hepatitis A Vaccines Aged Out No long er eligible based on patient's age to complete this topic IPV Vaccines Aged Out No longer eligi ble based on patient's age to complete this topic MMR Vaccines Aged Out No longer eligi ble based on patient's age to complete this topic Meningococcal ACWY Vaccine Aged Out N o longer eligible based on patient's age to complete this topic Pneumococcal Vaccine: Pediat rics (0 to 5 Years) and At-Risk Patients (6 to 64 Years) Aged Out No longer eligible b ased on patient's age to complete this topic RSV Immunization Patients Un bulmaro 20 months Aged Out No longer eligible b ased on patient's age to complete this topic Varicella Vaccines Aged Out No longer eligible based on patient's age to complete this topic
--- OUTSIDE RECORDS SUMMARY | 2024-09-25 14:05 | XMS_ITS | Encounter Summary ---
Author Organization [employer] Address [address] [place] [address] Care Team Providers Care Education And Development Manager Name Role Phone Dina Cartagena MD Primary Care Provider [phone] Reason for Visit * Reason Comments Care Coordination CHW outreach for SDO H PT-1 and food needs-referral completed Encounter Details Date Type Department Care Team (Latest Contact Info) Description 09/18/2024 Patient Outreach [facility] MED & PEDS [address] [place], [place] [phone] Dina Cartagena MD [address] [place] [address] Care Coordination (CHW outreach for SDOH PT-1 and food needs-referral completed /) Social History Tobacco Use Types Packs/Day Years Used Date Smoking Tobacco: Every Day Cigarettes Passive Smoke Exposure: Current Smokeless Tobacco: Never Housing Stability Answer Date Recorded What is your housing situation today? I have verónica sigifredo 09/18/[address] you li [...] as of this encounter Progress Notes * Mikael Patel - 09/18/2024 10:54 AM EST CHW Mikael Patel, placed outbound call to patient for assistance with SDOH as a referral was received by the provider. Patient's name and were confirmed. Patient screened positive for the following SDOH food insecurities. CHW referral patient to the local list of pantries in the area for help. Patient verbalizes understanding, and able to agree with plan to follow up. Patient educated on ex tended clinic hours on Mondays through Wednesdays, and Walk-In Urgent Care Located in [facility] of [facility].Patient provided with after-hours line for [facility], , which offer night time triage serviceand option to transfer to onshore diver provider if needed. documented in this encounter Plan of Treatment Upcoming Encounters Date Type Department Care Team (Late st Contact Info) Description 10/23/2024 9:15 AM EST Office Visit [facility] PEDS [address] [place] [address] Dina Cartagena MD [address] [place] [address] documented as of this encounter Visit Diagnoses Not on filedocumented in this encounter Care Teams Education And Development Manager Relationship Specialty Start Date End Date Dina Cartagena MD [address] [place] [address] PCP - General Family Medicine 08/28/18 Laverne Mahoney News AnalystHealth Analytics Consultant 12/07/23 documented as of this encounter
--- OUTSIDE RECORDS SUMMARY | 2024-09-25 14:05 | XMS_ITS | Encounter Summary ---
Author Organization [employer] Address [address] [facility] 7 [place] [address] Care Team Providers Care Complementary Health Therapists Name Role Phone Dina Cartagena MD Primary Care Provider [phone] Reason for Visit * Reason Onset Date Comments Nurse Triage 07/08/2024 Encounter Details Date Type Department Care Team ([facility] st Contact Info) Description 07/08/2024 Telephone [facility] MEDICINE [address] [place] [address] Dina Cartagena MD [address] [place] [id number] Nurse Triage Social History Tobacco Use Types Packs/Day Years Used Date Smoking Tobacco: Every Day Cigarettes Smokeless Tobacco: Never Comments Unknown Sex and Gender Information Value Date Recorded Sex Assigned at Female 06/27/2022 10:14 AM EDT Legal Sex Female 10:14 AM EDT Gender Identity Female 06/27/2022 10:14 AM EDT Sexual Orientation Straight 06/27/2022 10 :14 AM EDT documented as of this encounter Miscellaneous Notes * Telephone Encounter - Kayla Garduno CNM - 07/15/2024 9:57 AM EST She isn't due for pap until next year. * Telephone Encounter - Lara Spear RN - 07/15/2024 9:52 AM EST Images from the original note were not included. Contacted Pt with the information given below. Pt would like to have another referral to [facility] and would like to see provider for pap smear this morning. [facility] Pt agrees to this information. But, will still come for apt. Kayla Garduno, ANTHONY Spear RN Hi - I see you scheduled Rita with me for evaluation of heavy bleeding on Monday. I haven't seen herfor 2 years and she was more recently referred to [facility] for further evaluation of this. If possible, she should followup with them as I am going to refer her back there either way. If she is still soaking pads/tampons in 1-2 hours consistently, she needs to go to the ER. Thanks! * Telephone Encounter - Lara Spear RN - 07/08/2024 5:09 PM EST Triage call Pt reports period started 07/05/24 and has had heavy bleeding since that time. Pt has used 2 pads < hour today and yesterday 2 tampons < 2hrs. Pt does have some abdominal cramping which comes and goes mainly in the LLQ. Pt is not using control had tubal ligation. Pt reportsthat period started 2 weeks early and Pt has been under more stress than usual. Pt is requesting a pap smear be done. ASK apt with ANTHONY Garduno 07/15/24 @ 1030am for pap smear to be done and to discuss the heavy flow . Pt agrees with this disposition and Insurance is verified as active prior to booking. Protocol Used: Vaginal Bleeding - Abnormal (Adult) Protocol-Based Disposition: See in Office or Video Visit within 2 Weeks Positive Triage Question: * Periods with > 6 soaked pads or tampons per day * All higher-acuity triage questions were negative Care Advice Discussed: * Reasons To Call Back - Severe abdomen pain or lightheadedness occurs - test is positive - Bleeding worsens - Bleeding or spotting lasts over 7 days - You become worse * Telephone Encounter - Pino Freed - 07/08/2024 4:45 PM EST Symptom: Vaginal Bleeding - Not Outcome: Talk to a nurse or provider within 15 minutes Reason: Heavy bleeding The caller accepted this outcome. Please contact at [phone] documented in this encounter Plan of Treatment Upcoming Encounters Date Type Department Care Team ([facility] st Contact Info) Description 10/23/2024 9:15 AM EST Office Visit [facility] MED & PEDS [address] [place] [address] Dina Cartagena MD [address] [place] [address] documented as of this encounter Visit Diagnoses Not on filedocumented in this encounter Care Teams Complementary Health Therapists Relationship Specialty Start Date End Date Dina Cartagena MD [address] [place] [address] PCP - General Family Medicine 08/28/18 Laverne Mahoney Horticultural Farm ManagerSeed Analysis Laboratory Assistant 12/07/23 documented as of this encounter
--- OUTSIDE RECORDS SUMMARY | 2024-09-25 14:06 | XMS_ITS | Encounter Summary ---
Author Organization [employer] Address [address] [facility] 7[address] [place] [address] Care Team Providers Care Public Health Assistant Name Role Phone Dina Cartagena MD Primary Care Provider [phone] Encounter Details Date Type Department Care Team (Late st Contact Info) Description 04/04/2023 Telephone [facility] [address] [place] [address] Yong Naylor MD [address] [place] [address] Social History Tobacco Use Types Packs/Day Years [...] encounter Miscellaneous Notes * Telephone Encounter - Shavon Luna RN - 04/04/2023 4:37 PM EDT TC to pt to do status check- no answer. LM to TC. FYI to PCP. * Telephone Encounter - Gayatri Fonseca LPN - 04/04/2023 4:11 PM EDT Critical result line call received at this time. FBS drawn today = 58. Ordering provider Dr. Naylor. Team tasked to update provider and Lab is faxing results at this time. documented in this encounter Plan of Treatment Upcoming Encounters Date Type Department Care Team (Late st Contact Info) Description 10/23/2024 9:15 AM EST Office Visit [facility] MED & PEDS [address] [place] [address] Dina Cartagena MD [address] [place] [address] documented as of this encounter Visit Diagnoses Not on filedocumented in this encounter Care Teams Public Health Assistant Relationship Specialty Start Date End Date Dina Cartagena MD [address] [place] [address] PCP - General Family Medicine 08/28/18 Laverne Mahoney Rn Intensive Care UnitOn Call Pharmacy Technician 12/07/23 documented as of this encounter
--- OUTSIDE RECORDS SUMMARY | 2024-09-25 14:06 | XMS_ITS | Encounter Summary ---
Author Organization [employer] Address [address] [facility] 7t [place] [address] Care Team Providers Care Surfacer Operator Name Role Phone Dina Cartagena MD Primary Care Provider [phone] Reason for Visit * Reason Comments Med Refill Encounter Details Date Type Department Care Team ([facility] Contact Info) Description 09/09/2024 Refill [facility] [address] [place], [place] [phone] Dina Cartagena MD [address] [place] [address] Social History Tobacco Use Types Packs/Day Years Used Date Smoking Tobacco: Every Day Cigarettes Passive Smoke Exposure: Current Smokeless Tobacco: Never Comments No Sex and Gender Information Value Date Recorded Sex Assigned at Female 06/27/2022 10:14 AM EDT Legal Sex Female 10:14 AM EDT Gender Identity Female 06/27/2022 10:14 AM EDT Sexual Orientation Straight 06/27/2022 10 :14 AM EDT documented as of this encounter Plan of Treatment Upcoming Encounters Date Type Department Care Team (Late Contact Info) Description 10/23/2024 9:15 AM EST Office Visit [facility] [address] [place], [place] [phone] Dina Cartagena MD [address] [place] [address] documented as of this encounter Visit Diagnoses Not on filedocumented in this encounter Care Teams Surfacer Operator Relationship Specialty Start Date End Date Dina Cartagena MD [address] [place], [place] [address], [place] [address] PCP - General Family Medicine 08/28/18 Laverne Mahoney Lead Systems AnalystLicensed Occupational Therapist 12/07/23 documented as of this encounter
--- OUTSIDE RECORDS SUMMARY | 2024-09-25 14:06 | XMS_ITS | Encounter Summary ---
Author Organization [employer] Address [address] [facility] 7 [place] [address] Care Team Providers Care Delivery Assistant Name Role Phone Dina Cartagena MD Primary Care Provider [phone] Reason for Visit * Reason Onset Date Comments Medication Question 09/09/2024 Encounter Details Date Type Department Care Team ([facility] st Contact Info) Description 09/09/2024 Refill [facility] [address] [place] [address] Dina Cartagena MD [address] [place] [address] Social History Tobacco Use Types Packs/Day Years [...] encounter Miscellaneous Notes * Telephone Encounter - Cony Murillo RN - 09/10/2024 10:39 AM EST Tc from pt requesting to see if pcp can prescribe nicotine patch. Any further question please contact pt. TC placed to patient who reports pack of cigarettes last apx 3 days will que 14 mg patch to PCP. * Telephone Encounter - Lauren Ferraro - 09/09/2024 1:08 PM EST Tc from pt requesting to see if pcp can prescribe nicotine patch. Any further question please contact pt. documented in this encounter Plan of Treatment Upcoming Encounters Date Type Department Care Team ([facility] Contact Info) Description 10/23/2024 9:15 AM EST Office Visit [facility] MED & PEDS [address] [place] [address] Dina Cartagena MD [address] [place] [address] documented as of this encounter Visit Diagnoses Not on filedocumented in this encounter Care Teams Delivery Assistant Relationship Specialty Start Date End Date Dina Cartagena MD [address] [place] [address] PCP - General Family Medicine 08/28/18 Laverne Mahoney Stemhole BorerTurn Operator 12/07/23 documented as of this encounter
[2024-09-25 15:25] LABS: Alanine Aminotransferase 15 U/L (0-31); Albumin Level 3.8 g/dL (3.5-5.0); Alkaline Phosphatase 71 U/L (39-117); Anion Gap 9 (12-20); Aspartate Amino Transferase 18 U/L (5-31); Bilirubin Direct < 0.2 mg/dL (0.0-0.5); Bilirubin Total 0.2 mg/dL (0.0-1.0); Blood Urea Nitrogen 11 mg/dL (9-16); Calcium 8.4 mg/dL (8.4-10.2); Carbon Dioxide 27 mmol/L (22-29); Chloride 106 mmol/L (96-108); Cholesterol 165 mg/dL (<200); Estimated Glomerular Filt Rate > 60; Glucose Fasting 78 mg/dL (60-99); HDL Cholesterol 44 mg/dL (>40); LDL Cholesterol Calculated 96 mg/dL (<100); Potassium 3.8 mmol/L (3.3-5.1); Sodium 138 mmol/L (135-145); Total Protein 7.2 g/dL (6.5-8.0); Triglycerides 127 mg/dL (<150)
[2024-09-25 15:29] LABS: Vitamin D 25-OH Total 26.9 ng/mL (>30)
== END 2024-09-25 11:41 | disposition home or self-care (01) ==
LOC: HO.CHCLDS 11:40
PROVIDERS: Visit Provider Pediatrics
DX: Z00.00 Encounter for general adult medical examination without abnormal findings (principal); R03.0 Elevated blood-pressure reading, without diagnosis of hypertension; N93.9 Abnormal uterine and vaginal bleeding, unspecified
CPT/HCPCS: 36415; 80048; 80061; 80076; 82306; 99212

== ENCOUNTER 2024-09-25 13:44 | Outpatient (AMB) | payer MEDICAID, SELFPAY ==
--- NOTE | 2024-09-25 13:54 | MHC.OFFVIS ---
Intake Visit Reasons: us Results/EMB/poss hysteroscopy D&C polypectomy Wrapper Caser: Wrapper Caser Present Allergies Codeine Sulfate Allergy (Unknown, Uncoded 08/07/24 08:13) Palpitations Sulfa Allergy (Unknown, Uncoded 08/07/24 08:13) Unknown Is last menstrual period known: Yes Last menstrual period: 06/25/20 Post menopausal: No Patient : No Do you need a note to return to daycare/school/sports/work: Yes (for surgery on monday) HPI Comments Details: Presenting for ultrasound follow-up done on 08/12/2024 which showed the following: The anteverted uterus measures 10.0 x 5.0 x 4.3 cm. Diffusely heterogeneous myometrium. Endometrial thickness is 18 mm. Endometrium appears heterogeneous and complex, although evaluation is limited due to bowel gas and uterine positioning. Previous endometrial thickness 9 mm on 12/19/2022. Right ovary measures 3.5 x 2.1 x 2.7 cm, volume 10.5 mL. Left ovary measures 2.4 x 2.0 x 1.4 cm, volume 3.4 mL. 1.7 cm and 1.5 cm right ovarian cysts are likely simple, likely physiologic. US/US pelvic and transvaginal IMPRESSION: 1. Endometrial thickness is 18 mm. Endometrium appears heterogeneous and complex, although evaluation is limited due to bowel gas and uterine positioning. Previous endometrial thickness 9 mm on 12/19/2022. 2. Diffusely heterogeneous myometrium PFSH Medical History Irregular menses Breast mass, right Hypertension Asthma Surgical History Hx of tubal ligation H/O knee surgery Family History Mother History of breast cancer FH: HTN (hypertension) Maternal Grandmother Ovarian cancer Father FH: HTN (hypertension) Sister FH: HTN (hypertension) Brother FH: HTN (hypertension) Paternal Grandmother FH: HTN (hypertension) Paternal Grandfather Colon cancer Social History Household Members: Children Housing: House Alcohol intake: never Patient Tobacco Use Status: Current everyday Tobacco user Tobacco use type: Cigarette Cigarettes Per Day: 7 Years Smoked: 25 Current occupational status: employed Current occupation: [employer] Sexual orientation: Straight/Heterosexual Gender identity: Female Female Reproductive History Menstrual Date of last menstrual period: 06/25/20 Total pregnancies: 2 Full term: 2 Review of Systems Card Reports as per HPI and Reports no additional complaints Resp Reports as per HPI and Reports no additional complaints GI Reports as per HPI and Reports no additional complaints Reports as per HPI Physical Exam Const General: cooperative, healthy appearing and comfortable Resp Effort & Inspection: normal respiratory effort Auscultation: clear to auscultation bilaterally Percussion: percussion normal Cardio Palpation: normal PMI Rate: regular rate Rhythm: regular rhythm Heart sounds: no murmurs and no rubs Peripheral pulses: Peripheral pulses 2+ throughout GI Inspection: Yes normal to inspection Palpation (GI): Soft to palpation, nontender, no guarding, not rigid and No hepatosplenomegaly present Percussion: Yes normal to percussion Auscultation: normal bowel sounds Rectal Exam - Female: deferred Assessment & Plan Assessment & Plan (1) Abnormal uterine bleeding (AUB): Comment: High-risk for breast cancer Abnormal endometrium by ultrasound Code(s): N93.9 - Abnormal uterine and vaginal bleeding, unspecified Category: Medical Plan: Discussed with the patient the pelvic ultrasound findings, the abnormal endometrial stripeby ultrasound . Recommended to the patient that the next step is an endometrial sampling via hysteroscopy D&C possible polypectomy versus endometrial biopsy to r/o endometrial pathology including hyperplasia or cancer. All the pros and cons risks and benefits of each approach were discussed with the patient, endometrial biopsy being less invasive, office procedure with less sensitivity and inability diagnose a polyp and removal versus hysteroscopy done under anesthesia more invasive more sensitive to endometrial cancer and possibility of diagnosing and endometrial polyp with the possibility of polypectomy. All questions were answered pt verbalized understanding and decided to proceed with hysteroscopy D&C possible polypectomy/myomectomy. Discussed with the patient the procedure , all benefits and risks including but not limited to inability to complete the procedure , insufficient endometrial tissue for a complete evaluation of the endometrial cavity , bleeding, infection, possible need for blood transfusion with all its risk ( HIV,syphilis, Hepatitis, anaphylaxis shock, others..), injury to bladder, rectum, possible need for laparoscopy/laparotomy or hysterectomy. The patient verbalized understanding and signed the consent. Instructions given the patient to stay NPO after midnight the day prior to the procedure and to take only the specific medication (s) discussed the morning of the surgical procedure and to schedule a 2 week postoperative appointment Coding Level of Care Code Est Pt Level 3 (09475) Diagnoses Abnormal uterine bleeding (AUB) N93.9
--- OUTSIDE RECORDS SUMMARY | 2024-09-25 15:58 | XMS_ITS | Encounter Summary ---
Author Organization [employer] Address [address] [place] [address] Care Team Providers Care Dairy Feed Mixing Operator Name Role Phone Dina Cartagena MD Primary Care Provider [phone] Reason for Visit * Reason Comments Care Coordination [facility] outreach for [facility] H PT-1 and food needs-referral completed Encounter Details Date Type Department Care Team (Latest Contact Info) Description 09/18/2024 Patient Outreach [facility] [address] [place], [place] [phone] Dina Cartagena MD [address] [place] [address] Care Coordination ([facility] outreach for SDOH PT-1 [...] Wednesdays, and Walk-In Urgent Care Located in [facility] of [facility].Patient provided with after-hours line for [facility], , which offer night time triage serviceand option to transfer to control systems drafting officer provider if needed. documented in this encounter Plan of Treatment Upcoming Encounters Date Type Department Care Team (Late st Contact Info) Description 10/23/2024 9:15 AM EST Office Visit [facility] [address] [place] [address] Dina Cartagena MD [address] [place] [address] documented as of this encounter Visit Diagnoses Not on filedocumented in this encounter Care Teams Dairy Feed Mixing Operator Relationship Specialty Start Date End Date Dina Cartagena MD [address] [place] [address] PCP - General Family Medicine 08/28/18 Laverne Mahoney Transmission TechnicianWeatherization Director 12/07/23 documented as of this encounter
--- OUTSIDE RECORDS SUMMARY | 2024-09-25 15:58 | XMS_ITS | Clinical Summary ---
Author Organization [employer] Address [address] [facility] [address] [place] [address] Care Team Providers Care Greens Picker Name Role Phone Dina Cartagena MD Primary Care Provider [phone] Allergies Active Allergy Reactions Criticality Noted Date Comments Codeine 07/04/2012 Other reaction(s): SOB, TINGLING Dust Mite Extract 11/16/2022 Pineapple 11/16/2022 Polymyxin B Swelling 03/03/2023 Sulfa Antibiotics 07/15/2024 Medications Nasal Decongestant [place] 0.05 % nasal spray [place] 2 spray by intranasal route 3 times [...] Description 09/25/2024 9:45 AM EST Office Visit [facility] [address] [place] [address] Dina Cartagena MD 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 Dx); Encounter for routine history and physical examination; Colon cancer screening; Family history of colon polyps, unspecified; Elevated blood pressure reading in office without diagnosis of hypertension; Anxiety; SHAHRZAD on CPAP 09/25/2024 Travel 09/18/2024 Patient Outreach [facility] [address] [place] [address] Dina Cartagena MD Care Coordination (CH[facility] outreach for SDOH PT-1 and food needs-referral completed /) 09/18/2024 Patient Outreach [facility] [address] [place] [address] Dina Cartagena MD Pre-visit Planning (SDOH positive, Tobacco screening negative. ) 09/09/2024 Refill [facility] [address] [place] [address] Dina Cartagena MD 09/09/2024 Refill [facility] [address] [place] [address] Dina Cartagena MD 07/23/2024 Telephone [facility] MEDICINE [address] [place] [phone] Peggy Mcghee RN Results; Referral 07/23/2024 Orders Only [facility] [address] [place] [phone] Kayla Garduno CNM Abnormal uterine bleeding (Primary Dx) 07/18/2024 Refill [facility] [address] [place] [address] Dina Cartagena MD 07/15/2024 10:30 AM EST Office Visit [facility] [address] [place] [phone] Kayla Garduno CNM Abnormal uterine bleeding (Primary Dx); Dysmenorrhea 07/15/2024 Travel 07/08/2024 Telephone [facility] [address] [place] [phone] Dina Cartagena MD Nurse Triage from Last [...] [facility] [address] [place] [address] Dina Cartagena MD [address] [place] [address] Health Maintenance Due Date Last Done Comments [...] 02/2021, 04/07/2020, Additional history exists Lipid Panel 09/25/2029 09/25/2024, 11/16/2022 Zoster Vaccines (1 of 2) 2030 [...] Procedure Name Priority Date/Time Associated Diagnosis Comments LIPID PANEL, STANDARD Routine 09/25/2024 11:41 AM EST Encounter for routine history and physical examination VITAMIN D,25-OH,TOTAL,IA Routine 09/25/2024 11:41 AM EST Encounter for routine history and physical examination HEPATIC FUNCTION PANEL Routine 09/25/2024 11:41 AM EST Encounter for routine history and physical examination BASIC METABOLIC PANEL, FASTING Routine 09/25/2024 11:41 AM EST Encounter for routine history and physical examination Elevated blood pressure reading in office without diagnosis of hypertension US PELVIS TRANSVAGINAL Routine 08/12/2024 3:20 PM [...] 07/15/2024 10:24 AM EST Abnormal uterine bleeding THINPREP IMAGING PAP AND [...] Recently Relevant to Health Maintenance Results * (ABNORMAL) Basic Metabolic Panel, Fasting (09/25/2024 11:41 AM EST) Sodium 138 135 - 145 mmol/L [facility] Potassium 3.8 3.3 - 5.1 mmol/L [facility] Chloride 106 96 - 108 mmol/L [facility] Carbon Dioxide 27 22 - 29 mmol/L [facility] Anion Gap 9(L) 12 - 20 [facility] Urea Nitrogen (BUN) 11 9 - 16 mg/dL [facility] Creatinine, Serum 0.60 0.5 - 1.4 mg/dL [facility] Estimated Glomerular Filt Rate >60 [facility] Comment:Chronic Kidney Disea se: Estimated GFR < 60 mL/min/1.11m6Nqvqvn Kidney Disease: Estimated GFR < 15 mL/min/1.73m2 Glucose Fasting 78 60 - 99 mg/dL [facility] Calcium 8.4 8.4 - 10.2 mg/dL [facility] Blood Venous blood specimen / Unknown 09/25/2024 11:41 AM EST 09/25/2024 2:48 PM EST Dina Cartagena MD LAB BLOOD ORDERABLES Final Re sult Performing Organization Address [facility] Co de Phone Number [facility] [address] [place] [phone] * (ABNORMAL) Vitamin D, 25-Hydroxy, Total, Immunoassay (09/25/2024 11:41 AM EST) Vitamin D 25-OH Total 26.9(L) >30 ng/mL [facility] Comment:Health Based Referen ce Values*< 20 ng/mL Xdibjcxgd96-55 ng/mL Insufficient> 30 ng/mL Sufficient*Toshia SAUCEDA. N Engl J Med. 2007;357:266-280Care must be taken in interpreting Vitamin D results fromdifferent laboratories and methodologies. Published datademonstrated that results from patients undergoinghemodialysis may show a negative bias when tested withvarious automated 25-OH vitamin D assays when compared toLC-MS/MS.When testing samples from patients whose predominant form ofVitamin D is Vitamin D2, such as patients receiving VitaminD2 supplementation, results that are subtherapeutic shouldbe confirmed with another method such as LC-MS/MS. Blood Venous blood specimen / Unknown 09/25/2024 11:41 AM EST 09/25/2024 2:48 PM EST Dina Cartagena MD LAB BLOOD ORDERABLES Final Re sult Performing Organization Address [facility] Co de Phone Number [facility] [address] [place] [phone] * Hepatic Function Panel (09/25/2024 11:41 AM EST) Bilirubin, Total 0.2 0.0 - 1.0 mg/dL [facility] Bilirubin, Direct <0.2 0.0 - 0.5 mg/dL [facility] Aspartate Amino Transferase 18 5 - 31 U/L [facility] Alanine Aminotransferase 15 0 - 31 U/L [facility] Total Protein 7.2 6.5 - 8.0 g/dL [facility] Albumin Level 3.8 3.5 - 5.0 g/dL [facility] Alkaline Phosphatase 71 39 - 117 U/L [facility] Blood Venous blood specimen / Unknown 09/25/2024 11:41 AM EST 09/25/2024 2:48 PM EST us Dina Cartagena MD LAB BLOOD ORDERABLES Final Re sult Performing Organization Address City/[facility] Co de Phone Number [facility] [address], [place] [phone] * Lipid Panel, Standard (09/25/2024 11:41 AM EST) Triglycerides 127 <150 mg/dL [facility] Comment:Desirable Triglyceri de: less than 150 mg/dLBorderline High Triglyceride 150-199 mg/dLHigh Triglyceride: 200-499 mg/dLVery High Triglyceride: greater than or equal to 5OO mg/dL Cholesterol 165 <200 mg/dL [facility] Comment:Desirable Cholestero l: less than 200 mg/dLBorderline High Cholesterol: 200-239 mg/dLHigh Cholesterol: greater than 239 mg/dL LDL Cholesterol Calculated 96 <100 mg/dL [facility] Comment:Desirable LDL: less than 100 mg/dLNear Optimal/Above Optimal LDL: 110- 129 mg/dLBorderline High LDL: 130-159 mg/dLHigh LDL: 160-189 mg/dLVery High LDL: greater than or equal to 190 mg/dL HDL Cholesterol 44 >40 mg/dL [facility] Comment:Desirable HDL: grea ter than 40 mg/dL Note: This HDL assay may give artificially low results in patients with liver disease. Blood Venous blood specimen / Unknown 09/25/2024 11:41 AM EST 09/25/2024 2:48 PM EST us Dina Cartagena MD LAB BLOOD ORDERABLES Final Re sult [facility] [address] [place] [phone] * US Pelvis Transvaginal (08/12/2024 3:20 PM EST) Only the most recent of2 resultswithin the time period is included. Anatomical Region Laterality Modality Pelvis Ultrasound 08/12/2024 3:20 PM EST Narrative 09/18/2024 5:43 AM EST ? [facility] ?[address] ?[place] [address] ? Ultrasound Report ? Signed ? Patient: Denzel,Rita ?MR#: [id number] ?? 87 ? : 1980 ?Acct:[id number] ? Age/Sex: 43 / F ?ADM Date: 08/12/24 ? Loc: HO.US ? Attending Dr: Paxton Darnell MD ? Ordering Physician: Paxton Darnell MD ?? Date of Service: 08/12/24 ?? Procedure(s): US pelvic and transvaginal ?? Accession Number(s): [id number] ? cc: Dina Cartagena MD; Paxton Darnell [...] DD/ 1520 ? TD/TT: 08/12/24 1532 ? Body Worker: ? Procedure Note Donotuseinterpreter, Image - 09/18/2024 [place] [address] Ultrasound Report Signed Patient: Pravin MahoneyR#: [id number] 87 : 1980Acct:[id number] Age/Sex: 43 / FADM Date: 08/12/24 Loc: HO.US Attending Dr: Paxton Darnell MD Ordering Physician: Paxton Darnell MD Date of Service: 08/12/24 Procedure(s): US pelvic and transvaginal Accession Number(s): [id number] cc: Dina Cartagena MD; Paxton Darnell MD [...] 09/18/24 0540 DD/ 1520 TD/TT: 08/12/24 1532 Body Worker: [facility] External Provider IMG US PROCEDURES Final Result * TSH with Reflex to Free T4 (08/07/2024 8:44 AM EST) Only the most recent of2 resultswithin the time period is included. TSH reflex Free T4 0.85 0.32 - 4.0 uIU/mL [facility] 08/07/2024 8:44 AM EST 08/07/2024 8:47 AM EST Generic External Data Provider LAB BLOOD ORDERAB LES Final Result [facility] [address], [place] [phone] * Prolactin (08/07/2024 8:44 AM EST) Prolactin 11.7 ng/mL [facility] Comment:Reference Range Fema les Non- 3.0-30.0 10.0-209.0 Postmenopausal 2.0-20.0THIS TEST WAS PERFORMED AT:[facility] [place] [id number] MEAD MD 08/07/2024 8:44 AM EST 08/07/2024 8:47 AM EST us Generic External Data Provider LAB BLOOD ORDERAB LES Final Result Performing Organization Address City/[facility]/ZIP Co de Phone Number [facility] [address] [place] [phone] * CBC (08/07/2024 8:44 AM EST) Pathologist [facility] White Blood Count 9.3 4.8 - 10.8 X10*3/uL [facility] Red Blood Count 4.86 4.20 - 5.50 X10*6/uL [facility] Hemoglobin 13.5 12.0 - 16.0 g/dl [facility] Hematocrit 39.3 37.0 - 47.0 % [facility] Mean Corpuscular Volume 80.9 80.0 - 98.0 fL [facility] Mean Corpuscular Hemoglobin 27.8 27.0 - 33.0 pg [facility] Mean Corpuscular HGB Conc 34.4 31.0 - 35.0 g/dl [facility] Red Cell Distribution Width 15.5 11.0 - 16.0 % [facility] Platelet Count 269 160 - 400 X10*3/uL [facility] Mean Platelet Volume 10.1 9.4 - 12.3 fL [facility] NRBC Pct Auto 0.0 0.0 - 0.2 /100WBC [facility] NRBC Abs Auto 0.000 0.0 - 0.012 X10*3/uL [facility] 08/07/2024 8:44 AM EST 08/07/2024 8:47 AM EST Generic External Data Provider LAB BLOOD ORDERAB LES Final Result Performing Organization Address [facility] Co de Phone Number [facility] [address] [place] [phone] * hCG, Total, Quantitative (08/07/2024 8:44 AM EST) HCG Quantitative <2 mIU/mL [facility] Comment:Weeks post LMP Appro ximate hCG(Last Menstrual Period) Range (mIU/ml)3 - 4 weeks 9 - 1304 - 5 weeks 75 - 2,6005 - 6 weeks 850 - 20,8006 - 7 weeks 4000 - 100,2007 - 12 weeks 11,500 - 289,22851 - 16 weeks 18,300 - 137,66267 - 29 weeks (2nd trimester) 1,400 - 53,56496 - 41 weeks (3rd trimester) 940 - 60,000The Samson B- hCG assay is used for the early detection ofpregnancy; it cannot be used to diagnose any conditionunrelated to . If a B-hCG level is not supportedby the clinical evidence, results should be confirmed by analternative method (qualitative urine hCG, for example). 08/07/2024 8:44 AM EST 08/07/2024 8:47 AM EST Generic External Data Provider LAB BLOOD ORDERAB LES Final Result Performing Organization Address City/State/[facility] Co de Phone Number [facility] [address] [place] [phone] * Us Pelvis complete (07/22/2024) Anatomical Region Laterality Modality Pelvis Ultrasound Kayla Garduno CNM IMG US PROCEDURES Final R esult * POCT hemoglobin docked device (07/15/2024 10:24 AM EST) Pathologist [facility] Hemoglobin 12.6 12.0 - 15.0 QC Media Lot # [id number] Lot# Expiration Date [id number] Blood 07/15/2024 10:2 4 AM EST Kayla Garduno CNM POINT OF CARE TEST ENTER/ EDIT ORDERABLES Final Result * THINPREP TIS PAP AND HPV mRNA E6/E7, CT/NG, TRICH (05/25/2022 10:49 AM EDT) Chlamydia trachomatis RNA, TMA, Urogenital NOT DETECTED NOT DETECTED CONVERTED LEGACY LABS Clinical Information: NIL/NEG 04/2021/HX SOPHIA 2/3 IN 2017 CONVERTED INAPPIN LABS COMMENT SEE COMMENT ELI Anaya LEGIntellijoule Comment: The analytical performance characteristics of this assay, when used to test SurePath(TM) specimens have been determined by [employer]. The modifications have not been cleared or approved by the FDA. This assay has been validated pursuant to the CLIA regulations and is used for clinical purposes. ?? For additional information, please refer to https://Vputi.DeskGod/faq/VUZ765 (This link is being provided for information/ educational purposes only.) ?? COMMENT SEE COMMENT ELI Anaya Carma Comment: EXPLANATORY NOTE: ? The Pap is [...] been evaluated with computer assisted technology. CONVERTED Carma Internet Researcher: SEE COMMENT CONVERTED Carma Comment: [facility], CT(ASCP) CT screening location: [address] ??[phone] HPV nRNA E6/E7 Not Detected Not Detected CONVERTED Carma Comment: Methodology: Retail And Promotions Coordinator-Mediated Amplification This assay detects E6/E7 viral messenger RNA (mRNA) from 14 high-risk HPV types (16,18,31,33,35,39,45,51,52,56,58,59,66,68). ? Cervical sources are required for HPV testing. If a vaginal source from a patient who has had a total hysterectomy with removal of cervix was ?? submitted, please contact the testing laboratory for alternative testing options. ?? For additional information, please refer to http://Vputi.DeskGod/faq/NBW402d0 (This link if provided for information/ educational purposes only.) Infection Shift in vaginal dhara suggestive of bacterial vaginosis. CONVERTED Carma Interpretation/Re sult: Negative for intraepithelial lesion or malignancy. CONVERTED Carma LMP: 05/01/22 CONVERTED LEGACY LABS Neisseria gonorrhoeae [...] of this assay have been determined by [employer]. The modifications have not been cleared or approved by the FDA. This assay has been validated pursuant to the CLIA regulations and is used for clinical purposes. ?? For additional information, please refer to http://education.DeskGod/ faq/Trichomonastma (This link is being provided for information/ educational purposes only.) ?? 05/25/2022 10:4 9 AM EDT Kayla SARMIENTO LAB PATHOLOGY ORDERABLES Final Result CONVERTED LEGACY [...] result details Legacy Procedure: Mammography Report 1 Dina Cartagena MD IMG BI PROCEDURES Final Resul t * HEPATITIS C AB W/REFL TO HCV RNA, QN, PCR (05/04/2021 10:41 AM EDT) HEPATITIS C ANTIBODY NON-REACT JOSEMANUEL NON-REACT JOSEMANUEL [facility] INDEX 0.02 <1.00 [facility] Comment: ?? HCV antibody was non-reactive. There is no laboratory ?? evidence of HCV infection. ?? In most cases, no further action is required. However, if recent HCV exposure is suspected, a test for HCV RNA (test code 12469) is suggested. ?? For additional information please refer to http://Vputi.DeskGod/faq/TUA41z7 (This link is being provided for informational/ educational purposes only.) ?? 05/04/2021 10:4 1 AM EDT Kayla SARMIENTO HISTORICAL/NON ORDERABLE LABS Final Result Performing Organization Address [facility] Phone Number [facility] [address] * HIV 1/2 ANTIGEN/ANTIBODY,FOURTH GENERATION W/RFL (05/04/2021 10:41 AM EDT) [facility] HIV-1/2 ANTIGEN AND ANTIBODIES, 4TH GENERATION W/ REFLEX NON-REACT JOSEMANUEL NON-REACT JOSEMANUEL [facility] Comment: HIV-1 antigen and HIV-1/HIV-2 [...] ? For additional information please refer to http://Vputi.DeskGod/faq/LDH494 (This link is being provided for informational/ educational purposes only.) ? The performance of this assay has not been clinically validated in patients less than 2 years old. ?? 05/04/2021 10:4 1 AM EDT Kayla SARMIENTO LAB BLOOD ORDERABLES Odette l Result Performing Organization Address [facility] Phone Number [facility] [address] from Last 3 Months or Most Recently Relevant to Health Maintenance Insurance Care Teams Greens Picker Relationship Specialty Start Date End Date Dina Cartagena MD [address] [place] [phone] PCP - General Family Medicine 08/28/18 Laverne Mahoney Door PanelerPbx Technician 12/07/23
--- OUTSIDE RECORDS SUMMARY | 2024-09-25 15:58 | XMS_ITS | Encounter Summary ---
Author Organization [employer] Address [address] [facility] 7 [place] [address] Care Team Providers Care Pit Shovel Operator Name Role Phone Dina Cartagena MD Primary Care Provider [phone] Reason for Visit * Reason Onset Date Comments Nurse Triage 07/08/2024 Encounter Details Date Type Department Care Team ([facility] st Contact Info) Description 07/08/2024 Telephone [facility] [address] [place] [address] Dina Cartagena MD [address] [place] [phone] Nurse Triage Social History Tobacco Use Types [...] would like to have another referral to [facility] and would like to see provider for pap smear this morning. [facility] Pt agrees to this information. But, will still come for apt. Kayla Garduno, ANTHONY Spear RN Hi - I see you scheduled Rita with me for evaluation of heavy bleeding on Monday. I haven't seen herfor 2 years and she was more recently referred to [facility] for further evaluation of this. If possible, [...] caller accepted this outcome. Please contact at [phone] documented in this encounter Plan of Treatment Upcoming Encounters Date Type Department Care Team ([facility] st Contact Info) Description 10/23/2024 9:15 AM EST Office Visit [facility] [address] [place] [address] Dina Cartagena MD [address] [place] [address] documented as of this encounter Visit Diagnoses Not on filedocumented in this encounter Care Teams Pit Shovel Operator Relationship Specialty Start Date End Date Dina Cartagena MD [address] [place] [address] PCP - General Family Medicine 08/28/18 Laverne Mahoney Work CheckerTrain Operations Manager 12/07/23 documented as of this encounter
--- OUTSIDE RECORDS SUMMARY | 2024-09-25 15:58 | XMS_ITS | Clinical Summary ---
Author Organization [employer] [facility] ity Address [address] [place] [address] Care Team Providers Care Edi Consultant Name Role Phone Unavailable Primary Care Provider [...]
--- OUTSIDE RECORDS SUMMARY | 2024-09-25 15:58 | XMS_ITS | Encounter Summary ---
Author Organization [employer] Address [address] [facility] 7 [place] [address] Care Team Providers Care Electric Locomotive Firer/Fireman Name Role Phone Dina Cartagena MD Primary Care Provider [phone] Reason for Referral * Consultation (Routine) - Authorized Specialty Diagnoses / Procedures Referred By Elizabteh zhu Referred To Contact Behavioral Health Diagnoses Anxiety Dina Cartagena MD [address] [place] [address] Phone: tel: fax: Referral ID Status Reason Start Date Expiration Date Visits Requested Visits Authorized [id number] Authorized Specialty Services Required 09/25/2024 09/25/2025 1 1 * Consultation (Routine) - Pending Review Specialty Diagnoses / Procedures Referred By Elizabeth zhu Referred To Contact Gastroenterology Diagnoses Colon cancer screening Family history of colon polyps, unspecified Dina Cartagena MD [address] [place] [address] Phone: tel: fax: Referral ID Status Reason Start Date Expiration Date Visits Requested Visits Authorized [id number] Pending Review Specialty Services Required 09/25/2024 09/25/2025 1 1 Encounter Details Date Type Department Care Team ([facility] st Contact Info) Description 09/25/2024 9:45 AM EST Office Visit [facility] [address] [place], [place] [phone] Dina Cartagena MD [address] [place] [phone] 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 [...] Upcoming Encounters Date Type Department Care Team ([facility] st Contact Info) Description 10/23/2024 9:15 AM EST Office Visit [facility] [address] [place], [place] [phone] Dina Cartagena MD [address] [place], [place] [phone] Scheduled Orders Name Type Priority Associated Diagnoses Orde r Schedule Albumin, Random Urine W/Creatinine Lab Routine Encounter for routine history and physical examination Elevated blood pressure reading in office without diagnosis of hypertension Expected: 09/25/2024 (Approximate), Expires: 09/25/2025 Scheduled Referrals Name Type Priority Associated Diagnoses Order Schedule Referral to Gastroenterology Outpatient Referral Routine Colon cancer screening Family history of colon polyps, unspecified Expected: 09/25/2024 (Approximate), Expires: 09/25/2025 Referral to Behavioral Health Outpatient Referral Routine Anxiety Expected: 09/25/2024 (Approximate), Expires: 09/25/2025 documented as of this encounter Procedures Procedure Name Priority Date/Time Associated Diagnosis Comments BASIC METABOLIC PANEL, FASTING Routine 09/25/2024 11:41 AM EST Encounter for routine history and physical examination Elevated blood pressure reading in office without diagnosis of hypertension VITAMIN D,25-OH,TOTAL,IA Routine 09/25/2024 11:41 AM EST Encounter for routine history and physical examination HEPATIC FUNCTION PANEL Routine 09/25/2024 11:41 AM EST Encounter for routine history and physical examination LIPID PANEL, STANDARD Routine 09/25/2024 11:41 AM EST Encounter for routine history and physical examination documented in this encounter Results * Lipid Panel, Standard (09/25/2024 11:41 AM EST) Triglycerides 127 <150 mg/dL [facility] Comment:Desirable Triglyceri de: less than 150 mg/dLBorderline High Triglyceride 150-199 mg/dLHigh Triglyceride: 200-499 mg/dLVery High Triglyceride: greater than or equal to 5OO mg/dL Cholesterol 165 <200 mg/dL [facility] Comment:Desirable Cholestero l: less than 200 mg/dLBorderline High Cholesterol: 200-239 mg/dLHigh Cholesterol: greater than 239 mg/dL LDL Cholesterol Calculated 96 <100 mg/dL [facility] Comment:Desirable LDL: less than 100 mg/dLNear Optimal/Above Optimal LDL: 110- 129 mg/dLBorderline High LDL: 130-159 mg/dLHigh LDL: 160-189 mg/dLVery High LDL: greater than or equal to 190 mg/dL HDL Cholesterol 44 >40 mg/dL [facility] Comment:Desirable HDL: great er than 40 mg/dL Note: This HDL assay may give artificially low results in patients with liver disease. Blood Venous blood specimen / Unknown 09/25/2024 11:41 AM EST 09/25/2024 2:48 PM EST us Dina Cartagena MD LAB BLOOD ORDERABLES Final Re sult [facility] [address] [place] [address] [phone] * (ABNORMAL) Vitamin D, 25-Hydroxy, Total, Immunoassay (09/25/2024 11:41 AM EST) Vitamin D 25-OH Total 26.9(L) >30 ng/mL [facility] Comment:Health Based Referen ce Values*< 20 ng/mL [id number] ng/mL Insufficient> 30 ng/mL Sufficient*Toshia SAUCEDA. N [...] ORDERABLES Final Re sult Performing Organization Address [facility] Co de Phone Number [facility] [address] [place] [address] [phone] * Hepatic Function Panel (09/25/2024 11:41 AM EST) Bilirubin, Total 0.2 0.0 - 1.0 mg/dL [facility] Bilirubin, Direct <0.2 0.0 - 0.5 mg/dL [facility] Aspartate Amino Transferase 18 5 - 31 U/L [facility] Alanine Aminotransferase 15 0 - 31 U/L [facility] Total Protein 7.2 6.5 - 8.0 g/dL [facility] Albumin Level 3.8 3.5 - 5.0 g/dL [facility] Alkaline Phosphatase 71 39 - 117 U/L [facility] Blood Venous blood specimen / Unknown 09/25/2024 11:41 AM EST 09/25/2024 2:48 PM EST Dina Cartagena MD LAB BLOOD ORDERABLES Final Re sult Performing Organization Address [facility] Co de Phone Number [facility] [address] [place] [phone] * (ABNORMAL) Basic Metabolic Panel, Fasting (09/25/2024 11:41 AM EST) Sodium 138 135 - 145 mmol/L [facility] Potassium 3.8 3.3 - 5.1 mmol/L [facility] Chloride 106 96 - 108 mmol/L [facility] Carbon Dioxide 27 22 - 29 mmol/L [facility] Anion Gap 9(L) 12 - 20 [facility] Urea Nitrogen (BUN) 11 9 - 16 mg/dL [facility] Creatinine, Serum 0.60 0.5 - 1.4 mg/dL [facility] Estimated Glomerular Filt Rate >60 [facility] Comment:Chronic Kidney Disea se: Estimated GFR < 60 mL/min/[id number] Kidney Disease: Estimated GFR < 15 mL/min/1.73m2 Glucose Fasting 78 60 - 99 mg/dL [facility] Calcium 8.4 8.4 - 10.2 mg/dL [facility] Blood Venous blood specimen / Unknown 09/25/2024 11:41 AM EST 09/25/2024 2:48 PM EST us Dina Cartagena MD LAB BLOOD ORDERABLES Final Re sult [facility] [address] [place] [address] [phone] documented in this encounter Visit Diagnoses Diagnosis Atypical ductal [...] documented as of this encounter Care Teams Electric Locomotive Firer/Fireman Relationship Specialty Start Date End Date Dina Cartagena MD [address] [place] [address] PCP - General Family Medicine 08/28/18 Laverne Mahoney Brand RecorderSenior Portfolio Analyst 12/07/23 documented as of this encounter
--- OUTSIDE RECORDS SUMMARY | 2024-09-25 15:58 | XMS_ITS | Encounter Summary ---
Author Organization [employer] Address [address] [facility] 7t [place] [address] Care Team Providers Care City Secretary Name Role Phone Dina Cartagena MD Primary Care Provider [phone] Reason for Visit * Reason Comments Med Refill Encounter Details Date Type Department Care Team ([facility] Contact Info) Description 09/09/2024 Refill [facility] [address] [place], [place] [phone] Dina Cartagena MD [address] [place] [address] Social History Tobacco Use Types Packs/Day Years [...] Description 10/23/2024 9:15 AM EST Office Visit [facility] [address] [place], [place] [phone] Dina Cartagena MD [address] [place] [address] documented as of this encounter Visit Diagnoses Not on filedocumented in this encounter Care Teams City Secretary Relationship Specialty Start Date End Date Dina Cartagena MD [address] [place], [place] [address] [address] PCP - General Family Medicine 08/28/18 Laverne Mahoney Seed Service AdvisorBiology Research Assistant 12/07/23 documented as of this encounter
--- OUTSIDE RECORDS SUMMARY | 2024-09-25 15:58 | XMS_ITS | Encounter Summary ---
Author Organization [email or web address] Address [address] [facility] 7t [place] [address] Care Team Providers Care Director Of In Service Education Name Role Phone Dina Cartagena MD Primary Care Provider [phone] Encounter Details Date Type Department Care Team (Late Contact Info) Description 11/30/2022 Orders Only [facility] MED & PEDS [address] [place] [address] Nargis Barrow MD [address] [place] [address] Abnormal uterine bleeding (Primary Dx) Social History [...] Description 10/23/2024 9:15 AM EST Office Visit [facility] [address] [place] [address] Dina Cartagena MD [address] [place] [address] documented as of this encounter Procedures Procedure [...] PM EDT) Influenza A PCR NEGATIVE Negative [facility] Influenza B PCR NEGATIVE Negative [facility] Resp Syncy Virus RNA Qual PCR NEGATIVE Negative [facility] SARS COV2 PCR NEGATIVE Negative [facility] Comment:All test results mus t [...] use by authorized laboratories.Testing performed on the Synchris GeneXpert utilizingreal-time RT-PCR.All SARS CoV2 and positive influenza A/B results arereported to [facility]. 05/06/2023 4:29 PM EDT 05/06/2023 4:32 PM EDT [facility] Exter nal Provider LAB MICROBIOLOGY - GENERAL ORDERABLES Final Result [facility] [address] [place] [phone] * (ABNORMAL) Basic Metabolic Panel, Fasting (04/04/2023 10:38 AM EDT) Sodium 140 135 - 145 mmol/L [facility] Potassium 3.8 3.3 - 5.1 mmol/L [facility] Chloride 107 96 - 108 mmol/L [facility] Carbon Dioxide 25 22 - 29 mmol/L [facility] Anion Gap 12 12 - 20 [facility] Urea Nitrogen (BUN) 9 9 - 16 mg/dL [facility] Creatinine, Serum 0.67 0.5 - 1.4 mg/dL [facility] Estimated Glomerular Filt Rate >60 [facility] Comment:NOTE: For -Am erican individuals, multiply the result by 1.210.Chronic Kidney Disease: Estimated GFR < 60 mL/min/1.58v8Oejplz Kidney Disease: Estimated GFR < 15 mL/min/1.73m2 Glucose Fasting 58(LL) 60 - 99 mg/dL [facility] Comment:Critical value for t est(s):FBS Results called to and readback by: MARISEL Tadeo LPN Person calling:MARTHA Date:04/04/23Time:1610 Calcium 9.0 8.4 - 10.2 mg/dL [facility] 04/04/2023 10:3 8 AM EDT 04/04/2023 2:26 PM EDT Yong Naylor MD LAB BLOOD ORDERABLES Final Result Performing Organization Address City/[facility]/ZIP Co de Phone Number [facility] [address] [place] [address] [phone] * Culture, Urine, Routine (12/19/2022 8:52 PM EDT) 12/19/2022 8:52 PM EDT 12/19/2022 8:52 PM EDT Comment:UACC Narrative [facility] - 12/21/2022 8:29 AM EDT Urine Culture No growth. Specimen Source: Urine clean catch [facility] Exter nal Provider LAB MICROBIOLOGY - GENERAL ORDERABLES Final Result Performing Organization Address City/[facility] Co de Phone Number [facility] [address] [place] [phone] * (ABNORMAL) Urinalysis, Complete, with Reflex to Culture (12/19/2022 8:26 PM EDT) Color Urine [place] [facility] Appearance Urine Hazy [facility] PH 5.0 5.0 - 9.0 [facility] Glucose Urine UA Negative Negative mg/dL [facility] Urine Blood Large (3+)(A) Negative [facility] Specific [place] - Urine 1.025 1.005 - 1.025 [facility] Urine Protein Trace Neg-Trace mg/dL [facility] Urine Ketones Negative Negative mg/dL [facility] Nitrite Urine Negative Negative [facility] Leukocyte Esterase Urine Negative Negative [facility] RBC Urine >20(A) 0 - 2 /HPF [facility] Urine WBC 6-10(A) 0 - 5 /HPF [facility] Urine Squamous Epithelial Cell 3-5 0 - 2 /HPF [facility] Urine Bacteria None Seen None Seen [facility] Hyaline Casts, Urine 0-2 0 - 2 /LPF [facility] 12/19/2022 8:26 PM EDT 12/19/2022 8:31 PM EDT Narrative [facility] - 12/19/2022 8:50 PM EDT [id number], Clean Catch [facility] External Provider LAB URI NE ORDERABLES Final Result Performing Organization Address [facility]/ZIP Co de Phone Number [facility] [address] [place] [phone] * HCG, Total, Quantitative (12/19/2022 8:21 PM EDT) HCG Quantitative <2 mIU/mL [facility] Comment:Weeks post LMP Appro ximate hCG(Last Menstrual Period) Range (mIU/ml)3 - 4 weeks 9 - 1304 - 5 weeks 75 - 2,6005 - 6 weeks 850 - 20,8006 - 7 weeks 4000 - 100,2007 - 12 weeks 11,500 - 289,28495 - 16 weeks 18,300 - 137,66291 - 29 weeks (2nd trimester) 1,400 - 53,80787 - 41 weeks (3rd trimester) 940 - 60,000The Samson B- hCG assay is used for the early detection ofpregnancy; it cannot be used to diagnose any conditionunrelated to . If a B-hCG level is not supportedby the clinical evidence, results should be confirmed by analternative method (qualitative urine hCG, for example). 12/19/2022 8:21 PM EDT 12/19/2022 8:24 PM EDT [facility] External Provider LAB BLO OD ORDERABLES Final Result Performing Organization Address [facility]/ZIP Co de Phone Number [facility] [address] [place] [phone] * Lipase (12/19/2022 8:21 PM EDT) Lipase 28 8 - 78 U/L [facility] 12/19/2022 8:21 PM EDT 12/19/2022 8:24 PM EDT us [facility] External Provider LAB BLO OD ORDERABLES Final Result [facility] [address] [place] [address] [phone] * (ABNORMAL) Basic Metabolic Panel (12/19/2022 8:21 PM EDT) Sodium 142 135 - 145 mmol/L [facility] Potassium 4.1 3.3 - 5.1 mmol/L [facility] Chloride 107 96 - 108 mmol/L [facility] Carbon Dioxide 26 22 - 29 mmol/L [facility] Anion Gap 13 12 - 20 [facility] Urea Nitrogen (BUN) 15 9 - 16 mg/dL [facility] Creatinine, Serum 0.75 0.5 - 1.4 mg/dL [facility] Creatinine Clr Calc Pharmacy 92.5 [facility] Comment:Provided height and weight: 152.4 cm,81.647 kg.eGFR (calculated from the MDRD study equation) and eCrCl(calculated from the Cockcroft-Gault equation) are based ondifferent parameters and may not yield comparable results.If eCrCl result is absurd, please check patient'sheight/weight. Estimated Glomerular Filt Rate >60 [facility] Comment:NOTE: For -Am erican individuals, multiply the result by 1.210.Chronic Kidney Disease: Estimated GFR < 60 mL/min/1.96p4Jimtpv Kidney Disease: Estimated GFR < 15 mL/min/1.73m2 Glucose 118(H) 60 - 115 mg/dL [facility] Calcium 9.4 8.4 - 10.2 mg/dL [facility] 12/19/2022 8:21 PM EDT 12/19/2022 8:24 PM EDT [facility] External Provider LAB BLO OD ORDERABLES Final Result Performing Organization Address [facility]/ZIP Co de Phone Number [facility] [address] [place] [phone] [phone] * Hepatic Function Panel (12/19/2022 8:21 PM EDT) Bilirubin, Total 0.2 0.0 - 1.0 mg/dL [facility] Bilirubin, Direct <0.2 0.0 - 0.5 mg/dL [facility] Aspartate Amino Transferase 16 5 - 31 U/L [facility] Alanine Aminotransferase 17 0 - 31 U/L [facility] Total Protein 7.0 6.5 - 8.0 g/dL [facility] Albumin Level 4.0 3.5 - 5.0 g/dL [facility] Alkaline Phosphatase 102 39 - 117 U/L [facility] 12/19/2022 8:21 PM EDT 12/19/2022 8:24 PM EDT [facility] External Provider LAB BLO OD ORDERABLES Final Result Performing Organization Address [facility] Co de Phone Number [facility] [address] [place] [address] [phone] * Slide Review (12/19/2022 8:21 PM EDT) Slide Review VERIFIED [facility] 12/19/2022 8:21 PM EDT 12/19/2022 8:24 PM EDT Result [facility] External Provider LAB BLO OD ORDERABLES Final Result Performing Organization Address [facility] Co de Phone Number [facility] [address] [place] [phone] [phone] * Prothrombin Time-INR (12/19/2022 8:21 PM EDT) Pathologist [facility] Prothrombin Time 10.4 10.0 - 13.1 SEC [facility] INTERNATIONAL NORM RATIO 0.9 0.9 - 1.1 [facility] Comment:INTERNATIONAL NORMAL IZED RATIO (INR) REFERENCE [...] PM EDT 12/19/2022 8:24 PM EDT us [facility] External Provider LAB BLO OD ORDERABLES Final Result Performing Organization Address City/State/[facility] Co de Phone Number [facility] [address] [place] [phone] * (ABNORMAL) CBC auto differential (12/19/2022 8:21 PM EDT) [facility] White Blood Count 13.0(H) 4.8 - 10.8 X10*3/uL [facility] Red Blood Count 5.27 4.20 - 5.50 X10*6/uL [facility] Hemoglobin 14.6 12.0 - 16.0 g/dl [facility] Hematocrit 43.1 37.0 - 47.0 % [facility] Mean Corpuscular Volume 81.8 80.0 - 98.0 fL [facility] Mean Corpuscular Hemoglobin 27.7 27.0 - 33.0 pg [facility] Mean Corpuscular HGB Conc 33.9 31.0 - 35.0 g/dl [facility] Red Cell Distribution Width 15.2 11.0 - 16.0 % [facility] Platelet Count 220 160 - 400 X10*3/uL [facility] Mean Platelet Volume 10.4 9.4 - 12.3 fL [facility] Neutrophils Percent Auto 58.1 45 - 73 % [facility] Imm Gran Pct Auto 0.5(H) 0.0 - 0.4 % [facility] Lymphocytes Percent Auto 32.5 20 - 40 % [facility] Monocytes Percent Auto 5.6 2 - 11 % [facility] Eosinophils Percent Auto 2.8 0 - 4 % [facility] Basophils Percent Auto 0.5 0 - 2 % [facility] NRBC Pct Auto 0.0 0.0 - 0.2 /100WBC [facility] Neutrophils Absolute Auto 7.6 2.0 - 8.3 x10*3/uL [facility] Imm Gran Abs Auto 0.06(H) 0.00 - 0.03 X10*3/uL [facility] Lymphocytes Absolute Auto 4.2 1.2 - 4.9 X10*3/uL [facility] Monocytes Absolute Auto 0.7 0.1 - 1.2 X10*3/uL [facility] Eosinophils Absolute Auto 0.4 0.0 - 0.4 X10*3/uL [facility] Basophils Absolute Auto 0.1 0.0 - 0.2 X10*3/uL [facility] NRBC Abs Auto 0.000 0.0 - 0.012 X10*3/uL [facility] 12/19/2022 8:21 PM EDT 12/19/2022 8:24 PM EDT us [facility] External Provider LAB BLO OD ORDERABLES Edited Result - Final [facility] [address] [place] [address] [phone] documented in this encounter Visit Diagnoses Diagnosis Abnormal uterine bleeding- Primary Unspecified disorder of menstruation and other abnormal bleeding from female genital tract documented in this encounter Care Teams Director Of In Service Education Relationship Specialty Start Date End Date Dina Cartagena MD [address] [place] [phone] PCP - General Family Medicine 08/28/18 Laverne Mahoney Tapper HandFilter Tip Catcher 12/07/23 documented as of this encounter
--- OUTSIDE RECORDS SUMMARY | 2024-09-25 15:58 | XMS_ITS | Encounter Summary ---
Author Organization [employer] Address [address] [facility] 7t [place] [address] Care Team Providers Care A R Collections Rep Name Role Phone Dina Cartagena MD Primary Care Provider [phone] Encounter Details Date Type Department Care Team (Late st Contact Info) Description 04/04/2023 Telephone [facility] [address] [place] [address] Yong Naylor MD [address] [place] [address] Social History Tobacco Use Types Packs/Day Years [...] to PCP. * Telephone Encounter - Gayatri oFnseca LPN - 04/04/2023 4:11 PM EDT Critical result line call received at this time. FBS drawn today = 58. Ordering provider Dr. Naylor. Team tasked to update provider and Lab is faxing results at this time. documented in this encounter Plan of Treatment Upcoming Encounters Date Type Department Care Team (Late st Contact Info) Description 10/23/2024 9:15 AM EST Office Visit [facility] [address] [place] [address] Dina Cartagena MD [address] [place] [address] documented as of this encounter Visit Diagnoses Not on filedocumented in this encounter Care Teams A R Collections Rep Relationship Specialty Start Date End Date Dina Cartagena MD [address] [place] [address] PCP - General Family Medicine 08/28/18 Laverne Mahoney Sole LayerInspector Assembly 12/07/23 documented as of this encounter
--- OUTSIDE RECORDS SUMMARY | 2024-09-25 15:58 | XMS_ITS | Encounter Summary ---
Author Organization [employer] Address [address] [facility] 7 [place] [address] Care Team Providers Care Physician Internist Name Role Phone Dina Cartagena MD Primary Care Provider [phone] Reason for Visit * Reason Onset Date Comments Medication Question 09/09/2024 Encounter Details Date Type Department Care Team ([facility] st Contact Info) Description 09/09/2024 Refill [facility] [address] [place] [address] Dina Cartagena MD [address] [place] [address] Social History Tobacco Use Types Packs/Day Years [...] Upcoming Encounters Date Type Department Care Team ([facility] Contact Info) Description 10/23/2024 9:15 AM EST Office Visit [facility] [address] [place] [address] Dina Cartagena MD [address] [place] [address] documented as of this encounter Visit Diagnoses Not on filedocumented in this encounter Care Teams Physician Internist Relationship Specialty Start Date End Date Dina Cartagena MD [address] [place] [address] PCP - General Family Medicine 08/28/18 Laverne Mahoney Cafeteria AssociateLicensed Physical Therapy Assistant 12/07/23 documented as of this encounter
--- OUTSIDE RECORDS SUMMARY | 2024-09-25 15:58 | XMS_ITS | Encounter Summary ---
Author Organization [employer] Address [address] [place] [address] Care Team Providers Care Director Targeted Marketing Name Role Phone Dina Cartagena MD Primary Care Provider [phone] Encounter Details Date Type Department Care Team [...] Description 10/23/2024 9:15 AM EST Office Visit [facility] MED & PEDS [address] [place] [address] Dina Cartagena MD [address] [place] [address] documented as of this encounter Visit Diagnoses Not on filedocumented in this encounter Additional Health Concerns Assessment Noted Time PHQ-9 Depression Total Score: 6 09/25/19 25 10:17 AM EST documented as of this encounter Care Teams Director Targeted Marketing Relationship Specialty Start Date End Date Dina Cartagena MD [address] [place] [address] PCP - General Family Medicine 08/28/18 Laverne Mahoney Radio RepairerHome Improvement Installer 12/07/23 documented as of this encounter
--- OUTSIDE RECORDS SUMMARY | 2024-09-25 15:58 | XMS_ITS | Encounter Summary ---
Author Organization [employer] Address [address] [place] [address] Care Team Providers Care Melt Supervisor Name Role Phone Dina Cartagena MD Primary Care Provider [phone] Reason for Visit * Reason Comments Pre-visit Planning SDOH positive, Tobac co screening negative. Encounter Details Date Type Department Care Team ([facility] Contact Info) Description 09/18/2024 Patient Outreach [facility] MED & PEDS [address], [place] [id number] Dina Cartagena MD [address] [place] [address] Pre-visit Planning (SDOH positive, Tobacco screening negative. [...] t he electric, gas, oil or water [employer] threatened to shut off services in your [...] 10/23/2024 9:15 AM EST Office Visit [facility] MED [facility]EDS [address] [place] [address] Dina Cartagena MD [address] [place] [address] documented as of this encounter Visit Diagnoses Not on filedocumented in this encounter Care Teams Melt Supervisor Relationship Specialty Start Date End Date Dian Cartagena MD [address] [place] [address] PCP - General Family Medicine 08/28/18 Laverne Mahoney Union OrganiserBlock Captain 12/07/23 documented as of this encounter
== END 2024-09-25 14:49 | disposition home or self-care (01) ==
LOC: HO.HWS 13:44
PROVIDERS: PCP Pediatrics; Visit Provider Obstetrics & Gynecology
DX: N93.9 Abnormal uterine and vaginal bleeding, unspecified (principal)
CPT/HCPCS: 99213

== ENCOUNTER 2024-10-03 07:01 | Day surgery (SDC) | payer MEDICAID, SELFPAY ==
--- NOTE | 2024-10-02 08:46 | P.CONAN_ITS ---
Documented by User: Bee Haskins NP 10/02/24 08:47 HPI - Anesthesia Eval Consult details Narrative: 44yo F for D&C Hysteroscopy,possible polypectomy,possible myomectomy PMFSH Active Problems Active Problems: All Active Problems Abnormal uterine bleeding (AUB) (Acute) Irregular menses (Acute) Past Medical History Medical History Irregular menses Breast mass, right Hypertension Asthma Family History Family History Mother History of breast cancer FH: HTN (hypertension) Maternal Grandmother Ovarian cancer Father FH: HTN (hypertension) Sister FH: HTN (hypertension) Brother FH: HTN (hypertension) Paternal Grandmother FH: HTN (hypertension) Paternal Grandfather Colon cancer Surgical History Surgical History Hx of tubal ligation H/O knee surgery Social History Social History Household Members: Children Housing: House Alcohol intake: never Patient Tobacco Use Status: Current everyday Tobacco user Tobacco use type: Cigarette Cigarettes Per Day: 7 Years Smoked: 25 Current occupational status: employed 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 Sexual orientation: Straight/Heterosexual Gender identity: Female Meds Allergies Allergy/AdvReac Type Severity Reaction Status Date / Time Codeine Sulfate Allergy Unknown Palpitation Uncoded 08/07/24 08:13 s Sulfa Allergy Unknown Unknown Uncoded 08/07/24 08:13 Home Medications ?Medication ?Instructions ?Recorded ?Confirmed ?Last Taken ?Type azelastine 137 mcg (0.1 %) nasal 1 spray intranasal BID 03/08/23 Unknown History spray cetirizine 10 mg tablet 10 mg PO QAM 03/08/23 Unknown History ketotifen fumarate 0.025 % (0.035 0 drp ophthalmic (eye) 03/08/23 Unknown History %) eye drops ibuprofen 800 mg tablet 800 mg PO Q8H 08/07/24 Unknown History Assessment and Plan Assessment Anesthesia Assessment: Chart Reviewed Documented by User: Enrique Guadarrama MD 10/03/24 08:35 PMF Past Medical History Medical History Irregular menses Breast mass, right Hypertension Asthma Patient : No Family History Family History Mother History of breast cancer FH: HTN (hypertension) Maternal Grandmother Ovarian cancer Father FH: HTN (hypertension) Sister FH: HTN (hypertension) Brother FH: HTN (hypertension) Paternal Grandmother FH: HTN (hypertension) Paternal Grandfather Colon cancer Family history of problems with anesthesia: No Surgical History Surgical History Hx of tubal ligation H/O knee surgery History of Problems with Anesthesia: No Social History Social History Household Members: Children Housing: House Alcohol intake: never Patient Tobacco Use Status: Current everyday Tobacco user Tobacco use type: Cigarette Cigarettes Per Day: 7 Years Smoked: 25 Current occupational status: employed 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 Sexual orientation: Straight/Heterosexual Gender identity: Female Meds Allergies Allergy/AdvReac Type Severity Reaction Status Date / Time Codeine Sulfate Allergy Unknown Palpitation Uncoded 08/07/24 08:13 s Sulfa Allergy Unknown Unknown Uncoded 08/07/24 08:13 Home Medications ?Medication ?Instructions ?Recorded ?Confirmed ?Last Taken ?Type azelastine 137 mcg (0.1 %) nasal 1 spray intranasal BID 03/08/23 Unknown History spray cetirizine 10 mg tablet 10 mg PO QAM 03/08/23 Unknown History ketotifen fumarate 0.025 % (0.035 0 drp ophthalmic (eye) 03/08/23 Unknown His tory %) eye drops ibuprofen 800 mg tablet 800 mg PO Q8H 08/07/24 Unknown History Exam Airway Mallampati Class: II TM Dist: <=3cm Neck ROM: Full Loose/Missing/Broken Teeth: No Heart: ok Lungs: ok Assessment and Plan Assessment Anesthesia Assessment: Anesthesia Plan Discussed Final Anesthetic Review Family History of Problems with Anesthesia: No History of Problems with Anesthesia: No NPO: Yes ASA Class: II Final Preanesthetic Review: No Changes in Pt Med Stat, Meds/Allgs Chart Reviewed, Consent Obtained/Reviewed and Anes Risks/Benef Reviewed Patient Risk: Intermediate Procedure Risk: Low Anesthetic Plan Anesthetic Plan: GA and Agree w/ Assess. and Plan Disposition: Standard PACU
[2024-10-03 07:19] VITALS: BP 136/85; PULSE 81; RESP 18; TEMP 36.4; O2SAT 97; BMI 36.6
[2024-10-03] MEDS: Lactated Ringers 1,000 ML 100 ML IVCONT (07:36)
[2024-10-03 07:41] LABS: UPreg QC Valid YES; Urine Pregnancy NEGATIVE (NEGATIVE)
--- NOTE | 2024-10-03 08:39 | MHC.SHP ---
Pre-Procedural Eval Section A - 24 Hr Update-Section A only Date of Service: 10/03/24 The patient is an INPATIENT: No Changes since office visit: No Cold of Flu in the past 2 weeks, No New Medical Problems, No Changes in Medication and No Patient answered all questions The patient has been examined within 24 hours of the surgical procedure. The History & Physical has been completed within 30 days and I have reviewed it.: Yes Section B - Complete if H&P > 30 days Chief Complaint: Abnormal uterine and vaginal bleeding, unspecified Allergies: Allergies Allergy/AdvReac Type Severity Reaction Status Date / Time Codeine Sulfate Allergy Unknown Palpitation Uncoded 08/07/24 08:13 s Sulfa Allergy Unknown Unknown Uncoded 08/07/24 08:13 Plan Diagnosis/Plan: Unchanged I have reviewed the history and physical and performed a pertinent physical examination on my patient. No changes have occurred unless specified. Time Spent With Patient Time: Total time managing care of this patient today ____ minutes.
--- NOTE | 2024-10-03 09:02 | PM.OP ---
Brief Operative Note Date of Service: 10/03/24 Pre-op diagnosis: AUB, abnormal endometrium by ultrasound Post-op diagnosis: same (Endometrial polyp) Procedure: Hysteroscopy D&C, Polypectomy Surgeon: Paxton Darnell MD Anesthesia: GLMA Was an Railroad Car Loader used for this Procedure?: No Estimated blood loss (mL): 0 Pathology: other (Endometrial Scrapping. Polyp) Condition: stable Disposition: PACU
--- NOTE | 2024-10-03 09:02 | W.PM.OPN ---
Operative Note Operative Note Date of Service: 10/03/24 Narrative: Preop Diagnosis: AUB, Endometrial polyp by US Operation: Diagnostic Hysteroscopy, Dilataion & Curettage and polypectomy Post Op Diagnosis: Endometrial Polyp QBL: Minimal Anesthesia: GLMA Surgeon: Paxton Darnell MD End User Consultant: None Complication: None Pathology: Endometrial Scrapings, Endometrial polyp Procedure: The patient was put in the dorsal lithotomy position, scrubbed, and draped in the usual manner. A sterile speculum was inserted in the patient's vagina. The anterior lip of the cervix was grasped with a single tooth tenaculum. The cervix was dilated up to 5 mm, then the scope was inserted in the patient's uterus. Inspection revealed endometrial polyp. The Myosure Reach device was used; it was introduced through the operative channel and polypectomy done with no complications. The scope was then taken out from the uterine cavity, sharp curettings was carried on with minimal to moderate amount of tissues retrieved. At the end of the procedure, all instruments were taken out of the patient uterine and vaginal cavity. The single tooth tenaculum was removed and homeostasis was assured using pressure,. The patient tolerated the procedure well and was transferred to the PACU in a stable condition.
[2024-10-03 09:13] VITALS: BP 155/100; PULSE 65; RESP 16; TEMP 36.7; O2SAT 98
[2024-10-03 09:18] VITALS: BP 134/51; PULSE 65; RESP 14; O2SAT 98
[2024-10-03 09:23] VITALS: BP 132/70; PULSE 62; RESP 16; O2SAT 98
[2024-10-03 09:30] VITALS: BP 129/79; PULSE 76; RESP 16; O2SAT 98
[2024-10-03] MEDS: Acetaminophen 325 MG TABLET 975 MG PO (09:32)
[2024-10-03 09:45] VITALS: BP 130/79; PULSE 60; RESP 16; TEMP 36.4; O2SAT 98
== END 2024-10-03 10:33 | disposition home or self-care (01) ==
PROVIDERS: PCP Pediatrics; Visit Provider Obstetrics & Gynecology
PROC: 0UDB8ZZ Extraction of Endometrium, Via Natural or Artificial Opening Endoscopic (ICD-10-PCS; CPT 58558; principal; 2024-10-03 08:30)
DX: N93.9 Abnormal uterine and vaginal bleeding, unspecified (principal); N84.0 Polyp of corpus uteri; N92.6 Irregular menstruation, unspecified; N63.10 Unspecified lump in the right breast, unspecified quadrant; I10 Essential (primary) hypertension; J45.909 Unspecified asthma, uncomplicated; Z79.899 Other long term (current) drug therapy; Z88.2 Allergy status to sulfonamides; Z88.5 Allergy status to narcotic agent; F17.210 Nicotine dependence, cigarettes, uncomplicated
CPT/HCPCS: 58558; 81025; 88305; J1885; J2003; J2405; J2704; J3010

== ENCOUNTER → 2024-10-03 07:01 | Outpatient (BNV) | CPT/HCPCS: 58558 ==

== ENCOUNTER 2024-10-17 14:46 | Outpatient (AMB) | payer MEDICAID, SELFPAY ==
--- NOTE | 2024-10-17 15:05 | A.OFFVIS_ITS ---
Vital Signs 10/17/24 15:08 Height 5 ft Weight 190 lb BMI 37.1 BP 122/78 Intake Visit Reasons: post op Allergies Codeine Sulfate Allergy (Unknown, Uncoded 08/07/24 08:13) Palpitations Sulfa Allergy (Unknown, Uncoded 08/07/24 08:13) Unknown HPI Comments Details: The patient is presenting post hysteroscopy D&C no complaints minimal vaginal bleeding no feverishness chills or abdominal pain. The pathology showed the following: A. Endometrium, polypectomy: - Disordered proliferative endometrium. - Two fragments of benign haphazard smooth muscle. - No atypia identified. See comment. B. Endometrium, curettage: Disordered proliferative endometrium; no atypia or hyperplasia identified. Comment: The smooth muscle in part A may represent a leiomyoma The following workup was done.: H&H= 13.5/39.3 TSH, hCG, GC and chlamydia were negative. Co testing in 08/20 was negative Pelvic ultrasound showed the following: The anteverted uterus measures 10.0 x 5.0 x 4.3 cm. Diffusely heterogeneous myometrium. Endometrial thickness is 18 mm. Endometrium appears heterogeneous and complex, although evaluation is limited due to bowel gas and uterine positioning. Previous endometrial thickness 9 mm on 12/19/2022. Right ovary measures 3.5 x 2.1 x 2.7 cm, volume 10.5 mL. Left ovary measures 2.4 x 2.0 x 1.4 cm, volume 3.4 mL. 1.7 cm and 1.5 cm right ovarian cysts are likely simple, likely physiologic. The patient is high-risk for breast cancer, having yearly breast MRIs and screening mammogram six-months apart at [facility], last breast MRI was done 07/21 ago according to patient it was negative, no records available [facility] Medical History Irregular menses Breast mass, right Hypertension Asthma Surgical History Hx of tubal ligation H/O knee surgery Family History Mother History of breast cancer FH: HTN (hypertension) Maternal Grandmother Ovarian cancer Father FH: HTN (hypertension) Sister FH: HTN (hypertension) Brother FH: HTN (hypertension) Paternal Grandmother FH: HTN (hypertension) Paternal Grandfather Colon cancer Social History Household Members: Children Housing: House Alcohol intake: never Patient Tobacco Use Status: Current everyday Tobacco user Tobacco use type: Cigarette Cigarettes Per Day: 7 Years Smoked: 25 Current occupational status: employed 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 Sexual orientation: Straight/Heterosexual Gender identity: Female Review of Systems Const All systems reviewed & are unremarkable except as noted in HPI and below Reports as per HPI and Reports no additional complaints GI Reports no additional complaints Reports no additional complaints Physical Exam Vital Signs: Last Vital Signs BP 122/78 10/17/24 15:08 BMI result Body Mass Index 37.1 Assessment & Plan Assessment & Plan (1) Abnormal uterine bleeding (AUB): Comment: High-risk for breast cancer Abnormal endometrium by ultrasound Code(s): N93.9 - Abnormal uterine and vaginal bleeding, unspecified Category: Medical Plan: Discussed with the patient the results of the work up done and options of treatment including Lysteda, endometrial ablation and hysterectomy. All pros, cons, risks and benefits if each option was discussed with the patient and the patient decided to go ahead with Lysteda , so a more detailed discussion re: Lysteda including mechanism of action, benefits, risks including but not limited to thrombosis and strokes, Instructions were given on how to use, 2 tablets p.o. 3 times a day day 1 up to 3-5 days of menses and to schedule a 3 months follow- up appointment. The patient verbalized understanding and agreed with the plan. Medications: New tranexamic acid 2 tabs 3x /day from 1st day of menstrual cycle up 3-5 days 1,300 mg (2 x 650 mg) PO TID 90 days 90 tabs 0RF Coding Level of Care Code Est Pt Level 3 (32687) Diagnoses Abnormal uterine bleeding (AUB) N93.9
[2024-10-17 15:08] VITALS: BP 122/78; BMI 37.1
--- OUTSIDE RECORDS SUMMARY | 2024-10-17 15:55 | XMS_ITS | Encounter Summary ---
Author Organization [email or web address] Address [address] [place] [address] Care Team Providers Care Apartment Maintenance Supervisor Name Role Phone Dina Cartagena MD Primary Care Provider [phone] Encounter Details Date Type Department Care Team [...] Description 10/23/2024 9:15 AM EST Office Visit [facility] MED & PEDS [address] [place] [address] Dina Cartagena MD [address] [place] [address] documented as of this encounter Visit Diagnoses Not on filedocumented in this encounter Additional Health Concerns Assessment Noted Time PHQ-9 Depression Total Score: 6 09/25/19 25 10:17 AM EST documented as of this encounter Care Teams Apartment Maintenance Supervisor Relationship Specialty Start Date End Date Dina Cartagena MD [address] [place] [address] PCP - General Family Medicine 08/28/18 Laverne Mahoney Lead Php DeveloperBudget Counselor 12/07/23 documented as of this encounter
--- OUTSIDE RECORDS SUMMARY | 2024-10-17 15:55 | XMS_ITS | Encounter Summary ---
Author Organization [employer] Address [address] [facility] [address] [place] [address] Care Team Providers Care Sweet Pickle Maker Name Role Phone Dina Cartagena MD Primary Care Provider [phone] Reason for Referral * Consultation (Routine) - Closed Specialty Diagnoses / Procedures Referred By Elizabeth zhu Referred To Contact Behavioral Health Diagnoses Anxiety Dina Cartagena MD [address] [place] [address] Phone: tel: fax: Referral ID Status Reason Start Date Expiration Date V isits Requested Visits Authorized [id number] Closed Specialty Services Required 09/25/2024 09/25/2025 1 1 * Consultation (Routine) - Authorized Specialty Diagnoses / Procedures Referred By Elizabeth zhu Referred To Contact Gastroenterology Diagnoses Colon cancer screening Family history of colon polyps, unspecified Dina Cartagena MD [address] [place] [address] Phone: tel: fax: [facility] [address] [place], [place] Phone: tel: fax: Referral ID Status Reason Start Date Expiration Date Visits Requested Visits Authorized [id number] Authorized Specialty Services Required 09/25/2024 09/25/2025 1 1 Encounter Details Date Type Department Care Team (Late st Contact Info) Description 09/25/2024 9:45 AM EST Office Visit [facility] PEDS [address] [place] [address] Dina Cartagena MD [address] [place] [address] 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 Dx); Encounter for routine history and physical examination; Colon cancer screening; Family history of colon polyps, unspecified; Elevated blood pressure reading in office without diagnosis of hypertension; Anxiety; SHAHRZAD on CPAP; Dietary counseling; Exercise counseling; Tobacco abuse; Environmental allergies Social History Tobacco Use Types Packs/Day Years [...] 9:59 AM EST documented in this encounter Progress Notes * Dina Cartagena MD - 09/25/2024 9:45 AM EST Subjective Patient ID: Rita Mahoney is a 44 y.o. female who presents for her PE visit. Rita is a 44 y/o female patient of ours here for her PE visit. Patient suffers from history of SOPHIA 1, atypical hyperplasia of the right breast, obesity, anxiety, environmental allergies, mild persistent asthma and tobacco use. Patient states has been cutting down on tobacco use, now only smoking 3 cigarettes/day. Was not able to tolerate nicotine patches. Would like to try lozenges. Has beengoing through a lot of stress at home due to custody helm of her boyfriends kids. Denies issues with partner or with safety. Would like to have a therapist. 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 She recently had her LINE TENDER exam done at [facility] by instantizer operator and was referred to LINE TENDER for eval was dysfunctional uterine bleedi ng. She has an appointment today for discussion of possible endometrial biopsy. Is up-to-date with her mammograms which are done at [facility] every 6 months due to high risk. History provided by: Patient community outreach advocate used: No Review of Systems Constitutional: Negative for activity change, chills, fever and unexpected weight change. Respiratory: Negative for cough, shortness of breath and wheezing. Cardiovascular: Negative for chest pain, palpitations and leg swelling. Gastrointestinal: Negative for abdominal pain and blood in stool. Endocrine: Negative for polydipsia and polyuria. Genitourinary: Positive for menstrual problem. Negative for decreased urine volume, difficulty urinating, dysuria, hematuria and vaginal bleeding. Musculoskeletal: Negative for arthralgias and gait problem. Skin: Negative for color change and rash. Neurological: Negative for dizziness and headaches. Hematological: Negative for adenopathy. Psychiatric/Behavioral: Negative for dysphoric mood, hallucinations, sleep disturbance and suicidalideas. The patient is nervous/anxious. Objective BP (!) 140/92 (BP Location: Left arm, Patient Position: Sitting, BP Cuff Size: Adult) Pulse 91 Temp 97.5 ??F (36.4 ??C) (Oral) Resp 20 Ht 4' 11.5 (1.511 m) Wt 186 lb (84.4 kg) LMP 09/20/2024 (Exact Date) SpO2 96% BMI 36.94 kg/m?? Physical Exam Vitals reviewed. Constitutional: General: She is not in acute distress. Appearance: Normal appearance. She is not ill-appearing. HENT: Head: Normocephalic. Right Ear: Tympanic membrane and ear canal normal. Left Ear: Tympanic membrane and ear canal normal. Nose: Nose normal. Mouth/Throat: Mouth: Mucous membranes are moist. Pharynx: No oropharyngeal exudate or posterior oropharyngeal erythema. Eyes: Extraocular Movements: Extraocular movements intact. Conjunctiva/sclera: Conjunctivae normal. Pupils: Pupils are equal, round, and reactive to light. Cardiovascular: Rate and Rhythm: Normal rate and regular rhythm. Pulses: Normal pulses. Heart sounds: Normal heart sounds. Pulmonary: Effort: Pulmonary effort is normal. No respiratory distress. Breath sounds: Normal breath sounds. Abdominal: Palpations: Abdomen is soft. Musculoskeletal: General: Normal range of motion. Cervical back: Normal range of motion. Skin: General: Skin is warm. Capillary Refill: Capillary refill takes less than 2 seconds. Neurological: General: No focal deficit present. Mental Status: She is alert and oriented to person, place, and time. Psychiatric: Mood and Affect: Mood normal. Behavior: Behavior normal. Thought Content: Thought content normal. Judgment: Judgment normal. Assessment/Plan Diagnoses and all orders for this visit: Atypical ductal hyperplasia of right breast Comments: Patient had surgery to remove this at [facility]. He is followed every 6 months with MRI of the breast alternating with mammogram due to high risk family history Encounter for routine history and physical examination Comments: Rita had her PE done today. Her Pap smear is due in April 2027. First colonoscopy due in July 2025, referral to GI done. Fasting labs ordered today, she will return to see me in 4 weeks for results which will be addressed if needed. Vaccines are up-to-date. [facility] exam is in November at [facility]. Orders: - Albumin, Random Urine W/Creatinine; Future - Basic Metabolic Panel, Fasting; Future - Hepatic Function Panel; Future - Vitamin D, 25-Hydroxy, Total, Immunoassay; Future - Lipid Panel, Standard; Future Colon cancer screening Comments: GI referral will be done for her to get a screening colonoscopy due to family history of colon polyps and several family members. Orders: - Referral to Gastroenterology; Future Family history of colon polyps, unspecified - Referral to Gastroenterology; Future Elevated blood pressure reading in office without diagnosis of hypertension Comments: Patient has been checking her BP at home and numbers have been higher than normal. Low-salt diet and exercise activity recommended. Avoid eating out as much as possible .BP log sheet given, return toclinic in 4 weeks with me to check BP log and add medication if needed to control blood pressure. albumin, Random Urine W/Creatinine; Future - Basic Metabolic Panel, Fasting; Future Anxiety Comments: Has been going through stress due to boyfriend having custody issues of his kids. Referral to behavioral therapist done today per patient request. Orders: - Referral to Behavioral Health; Future SHAHRZAD on CPAP Comments: Patient states compliance with machine. Continue you as directed. Dietary counseling Exercise counseling Tobacco abuse Comments: Congratulated on decreasing cigarette use to 3/day. Nicotine lozenges prescribed today to help withthis matter. Environmental allergies Comments: Well-controlled on Zyrtec and nasal spray as needed. Avoid allergy triggers. Other orders - nicotine polacrilex (Commit) 2 MG lozenge; Dissolve 1 lozenge (2 mg) in the mouth if needed for smoking cessation. documented in this encounter Plan of Treatment Upcoming Encounters Date Type Department Care Team (Late st Contact Info) Description 10/23/2024 9:15 AM EST Office Visit [facility] [address] [place] [address] Dina Cartagena MD [address] [place] [address] Scheduled Orders Name Type Priority Associated Diagnoses [...] 11:41 AM EST) Triglycerides 127 <150 mg/dL [facility] Comment:Desirable Triglyceri de: less than 150 mg/dLBorderline High Triglyceride 150-199 mg/dLHigh Triglyceride: 200-499 mg/dLVery High Triglyceride: greater than or equal to 5OO mg/dL Cholesterol 165 <200 mg/dL [facility] Comment:Desirable Cholestero l: less than 200 mg/dLBorderline High Cholesterol: 200-239 mg/dLHigh Cholesterol: greater than 239 mg/dL LDL Cholesterol Calculated 96 <100 mg/dL [facility] Comment:Desirable LDL: less than 100 mg/dLNear Optimal/Above Optimal LDL: 110- 129 mg/dLBorderline High LDL: 130-159 mg/dLHigh LDL: 160-189 mg/dLVery High LDL: greater than or equal to 190 mg/dL HDL Cholesterol 44 >40 mg/dL [facility] Comment:Desirable HDL: great er than 40 mg/dL Note: This HDL assay may give artificially low results in patients with liver disease. Blood Venous blood specimen / Unknown 09/25/2024 11:41 AM EST 09/25/2024 2:48 PM EST us Dina Cartagena MD LAB BLOOD ORDERABLES Final Re sult [facility] [address] [place] [phone] * (ABNORMAL) Vitamin D, 25-Hydroxy, Total, Immunoassay (09/25/2024 11:41 AM EST) Vitamin D 25-OH Total 26.9(L) >30 ng/mL [facility] Comment:Health Based Referen ce Values*< 20 ng/mL [id number] ng/mL Insufficient> 30 ng/mL Sufficient*Toshia SAUCEDA. N [...] ORDERABLES Final Re sult Performing Organization Address [facility]/ZIP Co de Phone Number [facility] [address] [place] [phone] * Hepatic Function Panel (09/25/2024 11:41 AM EST) Bilirubin, Total 0.2 0.0 - 1.0 mg/dL [facility] Bilirubin, Direct <0.2 0.0 - 0.5 mg/dL [facility] Aspartate Amino Transferase 18 5 - 31 U/L [facility] Alanine Aminotransferase 15 0 - 31 U/L [facility] Total Protein 7.2 6.5 - 8.0 g/dL [facility] Albumin Level 3.8 3.5 - 5.0 g/dL [facility] Alkaline Phosphatase 71 39 - 117 U/L [facility] Blood Venous blood specimen / Unknown 09/25/2024 11:41 AM EST 09/25/2024 2:48 PM EST Dina Cartagena MD LAB BLOOD ORDERABLES Final Re sult Performing Organization Address [facility] Co de Phone Number [facility] [address] [place] [phone] * (ABNORMAL) Basic Metabolic Panel, Fasting (09/25/2024 11:41 AM EST) Sodium 138 135 - 145 mmol/L [facility] Potassium 3.8 3.3 - 5.1 mmol/L [facility] Chloride 106 96 - 108 mmol/L [facility] Carbon Dioxide 27 22 - 29 mmol/L [facility] Anion Gap 9(L) 12 - 20 [facility] Urea Nitrogen (BUN) 11 9 - 16 mg/dL [facility] Creatinine, Serum 0.60 0.5 - 1.4 mg/dL [facility] Estimated Glomerular Filt Rate >60 [facility] Comment:Chronic Kidney Disea se: Estimated GFR < 60 mL/min/[id number] Kidney Disease: Estimated GFR < 15 mL/min/1.73m2 Glucose Fasting 78 60 - 99 mg/dL [facility] Calcium 8.4 8.4 - 10.2 mg/dL [facility] Blood Venous blood specimen / Unknown 09/25/2024 11:41 AM EST 09/25/2024 2:48 PM EST us Dina Cartagena MD LAB BLOOD ORDERABLES Final Re sult [facility] [address] [place] [phone] documented in this encounter Visit Diagnoses Diagnosis Atypical ductal hyperplasia of right breast- Primary Encounter for routine history and physical examination Colon cancer screening Special screening for malignant neoplasms, colon Family history of colon polyps, unspecified Elevated blood pressure reading in office without diagnosis of hypertension Anxiety Anxiety state, unspecified SHAHRZAD on CPAP Dietary counseling Dietary surveillance and counseling Exercise counseling Tobacco abuse Tobacco use disorder Environmental allergies Other allergy, other than to medicinal agents documented in this encounter Additional Health Concerns Assessment Noted Time PHQ-9 Depression Total Score: 6 09/25/19 25 10:17 AM EST documented as of this encounter Care Teams Sweet Pickle Maker Relationship Specialty Start Date End Date Dina Cartagena MD [address] [place] [phone] PCP - General Family Medicine 08/28/18 Laverne Mahoney Vice President Medical AffairsSpecial Agent Group Insurance 12/07/23 documented as of this encounter
--- OUTSIDE RECORDS SUMMARY | 2024-10-17 15:55 | XMS_ITS | Encounter Summary ---
Author Organization [employer] Address [address] [facility] [address] [place] [address] Care Team Providers Care Process Design Engineer Name Role Phone iDna Cartagena MD Primary Care Provider [phone] Encounter Details Date Type Department Care Team (Late st Contact Info) Description 04/04/[address] [facility] [address] [place] [address] Yong Naylor MD [address] [place] [address] Social History Tobacco Use Types Packs/Day Years [...] FYI to PCP. * Telephone Encounter - Gaaytri Fonseca LPN - 04/04/2023 4:11 PM EDT Critical result line call received at this time. FBS drawn today = 58. Ordering provider Dr. Naylor. Team tasked to update provider and Lab is faxing results at this time. documented in this encounter Plan of Treatment Upcoming Encounters Date Type Department Care Team (Late st Contact Info) Description 10/23/2024 9:15 AM EST Office Visit [facility]EDS [address] [place] [address] Dina Cartagena MD [address] [place] [address] documented as of this encounter Visit Diagnoses Not on filedocumented in this encounter Care Teams Process Design Engineer Relationship Specialty Start Date End Date Dina Cartagena MD [address] [place] [address] PCP - General Family Medicine 08/28/18 Laverne Mahoney Cushion BuilderPastoral Assistant 12/07/23 documented as of this encounter
--- OUTSIDE RECORDS SUMMARY | 2024-10-17 15:55 | XMS_ITS | Clinical Summary ---
Author Organization [facility] Address [address] [place] [address] Care Team Providers Care Acute Dialysis Nurse Name Role Phone Dina Cartagena MD Primary Care Provider [phone] Allergies Active Allergy Reactions Criticality Noted Date Comments Codeine 07/04/2012 Other reaction(s): SOB, TINGLING Dust Mite Extract 11/16/2022 Pineapple 11/16/2022 Polymyxin B Swelling 03/03/2023 Sulfa Antibiotics 07/15/2024 Medications * This document contains information received from the source organization and may not represent a complete record from that organization. ketotifen (Zaditor) 0.025 % ophthalmic solution Administer 1 drop into affected eye(s) every 12 (twelve) hours. 10 mL 11 01/26/20 23 Active Blood Pressure kitIndications:Pr imary hypertension To check the BP daily 1 kit 03/03/20 23 Active Elastic Bandages & Supports (TruForm Stockings 10-20mmHg) miscIndications:V enous insufficiency 10-20 mm Hg. Knee high 1 [...] NOSTRIL TWICE DAILY 30 mL 12 02/26/20 24 Active ibuprofen (IBU) 800 MG tablet 1 tablet every 8 hours with food during menses, up to 7 days. 42 tablet 07/15/20 24 Active Ventolin HFA 108 (90 Base) MCG/ACT inhaler INHALE 2 PUFFS BY MOUTH EVERY 6 HOURS IF NEEDED FOR WHEEZING 18 g 3 07/19/20 24 Active nicotine polacrilex (Commit) 2 MG lozenge Dissolve 1 lozenge (2 mg) in the mouth if needed for smoking cessation. 100 lozenge 09/25/19 25 025 Active Nasal Decongestant [place] 0.05 % nasal spray [place] 2 spray by intranasal route 3 times every day in each nostril in the morning and evening 30 mL 01/19/20 23 025 Discontin ued(Thera py completed ) SudoGest 12 Hour 120 MG 12 hr tablet TAKE 1 TABLET BY MOUTH EVERY 12 HOURS. DO NOT CRUSH, CHEW OR SPLIT 20 tablet 09/11/19 25 025 Discontin ued(Thera py completed ) nicotine (Nicoderm, Step 2) 14 MG/24HR patch Place 1 patch on the skin 1 (one) time each day at the same time. 30 patch 09/10/19 25 025 Discontin ued(Side effects) Active Problems Problem Noted Date Diagnosed Date Persistent depressive disorder 10/08/2024 Assessment & Plan (10/09/2024 9:30 AM EST): During IBH Consult Rita presenting with depressed mood, Tearful, crying spells , hopelessness, irritable mood, loss of interests/pleasure , sense of isolation/loneliness , isolating, change in appetite or weight overeating, changes in sleep difficulty falling asleep and difficulty staying asleep , fatigue/loss of energy, worthlessness, inappropriate/excessive guilt , difficulty concentrating, indecisiveness; for a period of 18+ mo, for most or all symptoms in the context of untreated ongoing depression, holding emotions associated with cultural barriers. Rita reported living with depression for the last 7 / 8 years. Pt reports is difficult for her to share her emotions with others. Her mom's Caron passing (six years ago) was a difficult life event to process. Severity of sxs are stopping pt to live at her fullest. Family is the most important value for Rita and the main source of strength. Not currently taking medication to treat sxs at this time. Open to having pharmaceutical intervention in the future. Pt reports family hx of mental health disorder- depression, PTSD, alzheimer. clinician engaged pt with active/reflective listening. Reviewed and assessed for risk, current stressors and protective factors using open-ended questions. Validated and empathized with patient's emotions and current situation. Pt was self- referred to [facility] for OP individual therapy. Pt will have follow-up appt with clinician to provide additional support. Bereavement 10/08/2024 Assessment & Plan (10/09/2024 9:30 AM EST): During IB Consult Rita presenting with depressed mood, Tearful, crying spells , hopelessness, irritable mood, loss of interests/pleasure , sense of isolation/loneliness , isolating, change in appetite or weight overeating, changes in sleep difficulty falling asleep and difficulty staying asleep , fatigue/loss of energy, worthlessness, inappropriate/excessive guilt , difficulty concentrating, indecisiveness; for a period of 18+ mo, for most or all symptoms in the context of untreated ongoing depression, holding emotions associated with cultural barriers. Rita reported living with depression for the last 7 / 8 years. Pt reports is difficult for her to share her emotions with others. Her mom's Caron passing (six years ago) was a difficult life event to process. Severity of sxs are stopping pt to live at her fullest. Family is the most important value for Rita and the main source of strength. Not currently taking medication to treat sxs at this time. Open to having pharmaceutical intervention in the future. Pt reports family hx of mental health disorder- depression, PTSD, alzheimer. clinician engaged pt with active/reflective listening. Reviewed and assessed for risk, current stressors and protective factors using open-ended questions. Validated and empathized with patient's emotions and current situation. Pt was self- referred to [facility] for OP individual therapy. Pt will have follow-up appt with clinician to provide additional support. SHAHRZAD on CPAP 09/25/2024 Elevated blood pressure read ing in office without diagnosis of hypertension 09/25/2024 Tobacco abuse 09/25/2024 Environmental allergies 09/25/2024 Atypical ductal hyperplasia of right breast 10/27 Cervical intraepithelial neoplasia grade 1 12/03 Encounters * This document contains information received from the source organization and may not represent a complete record from that organization. Date Type Department Care Team Description 09/25/2024 9:45 AM EST Office Visit [facility] [address] [place] [address] Dina Cartagena MD 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 Dx); Encounter for routine history and physical examination; Colon cancer screening; Family history of colon polyps, unspecified; Elevated blood pressure reading in office without diagnosis of hypertension; Anxiety; SHAHRZAD on CPAP; Dietary counseling; Exercise counseling; Tobacco abuse; Environmental allergies 09/25/2024 Travel 09/18/2024 Patient Outreach [facility] [address] [place] [address] Dina Cartagena MD Care Coordination (CHW outreach for SDOH PT-1 and food needs-referral completed /) 09/18/2024 Patient Outreach [facility] [address] [place] [address] Dina Cartagena MD Pre-visit Planning (SDOH positive, Tobacco screening negative. ) 09/09/[address] [facility] [address] [place] [address] Dina Cartagena MD 09/09/2024 Refill [facility] [address] [place] [address] Dina Cartagena MD 07/23/[address] [facility] [address] [place] [address] [phone] Peggy Mcghee, MELITA Results; Referral 07/23/2024 Orders Only [facility] [address] [place] [address] [phone] Kayla Garduno CNM Abnormal uterine bleeding (Primary Dx) 07/18/[address] [facility] [address] [place] [phone] Dina Cartagena MD from Last 3 Months Family History Medical History Relation Name Comments Hypertension Brother Hypertension Father Hypertension Mother Hypertension Sister Relation Name Status Comments Brother Father Mother Sister Social History Tobacco Use Types Packs/Day Years Used Date Smoking Tobacco: Every Day Cigarettes Passive Smoke Exposure: Current Smokeless Tobacco: Never Depression Answer Date Recorded Patient Health Questionnaire-9 Score 13 10/08/2024 Patient Health Questionnaire-9 Score 13 10/08/2024 Last PHQ-9: Questionnaire Data Not on file 0 10/08/2024 Housing Stability Answer Date Recorded What is [...] Answer Date Recorded Patient Health Questionnaire-2 Score 4 10/08/2024 Internet Access Answer Date Recorded Internet Access [...] [facility] [address] [place] [address] Dina Cartagena MD [address] [place] [address] Health Maintenance Due Date Last Done Comments Hepatitis B Vaccines (3 of 3 - 3-dose series) 07/09/2021 05/14/2021, 06/03/1997 COVID-19 Vaccine ( season) 2024 08/07/2023, 12/13/2021, 09/19/2020, Additional history exists Mammogram 05/18/2024 05/18/2022, 05/14/2022 Depression Monitoring (PHQ-9) 04/07/2025 10/08/2024, 10/08/2024 Pap Smear 05/25/2025 05/25/2022, 090 02/2021, 04/07/2020 Family Planning (PISQ) 07/15/2025 07/15/2024 SDOH Screening 09/18/2025 09/18/2024 Alcohol/Substance Use Screening 09/25/2025 09/25/2024 Tobacco Screening 09/25/2025 09/25/2024 Depression Screening 10/08/2025 10/08/2024, 10/08/19 DTaP/Tdap/Td Vaccines (7 - Td or Tdap) 10/18/2026 10/18/2016, 03/31/2015, 03/27/2015, Additional history exists Cervical Cancer Screening 05/25/2027 HPV/Cotest 05/25/2027 05/25/2022, 09/0 02/2021, 04/07/2020, Additional history exists Lipid Panel 09/25/2029 09/25/2024, 11/16/2022 Zoster Vaccines (1 of 2) 2030 RSV Patients and Patients Aged 60 years or older (1 - 1-dose 75+ series) 2055 IPV Vaccines Completed 05/28/1988, 1008/1983, 1980, Additional history exists HIV Screening Completed [...] Procedure Name Priority Date/Time Associated Diagnosis Comments HEMATOXYLIN AND EOSIN STAIN Routine 10/03/2024 8:57 AM EST Abnormal uterine bleeding HCG, QL, URINE Routine 10/03/2024 7:12 AM EST Abnormal uterine bleeding LIPID PANEL, STANDARD Routine 09/25/2024 11:41 AM [...] TRANSVAGINAL Urgent 07/22/2024 Abnormal uterine bleeding Dysmenorrhea THINPREP IMAGING PAP AND HPV MRNA E6/E7, WITH CT/NG, TRICHOMONAS Routine 05/25/2022 10:49 AM EDT MAMMOGRAM GENERIC Routine 05/18/2022 2:0 5 PM EDT ZZZ HISTORICAL HEPATITIS C AB W/REFL TO HCV RNA, QN, PCR Routine 05/04/2021 10:41 AM EDT HIV 1/2 ANTIGEN/ANTIBODY, FOURTH GENERATION W/RFL Routine 05/04/2021 10:41 AM EDT from Last 3 Months or Most Recently Relevant to Health Maintenance Results * Hematoxylin and Eosin Stain (10/03/2024 8:57 AM EST) 10/03/2024 8:57 AM EST 10/03/2024 10:21 AM EST [facility] - 10/07/2024 2:50 PM EST ----- ------- Name: Rita Mahoney ? Age/Sex: 44/F ? : 1980 Unit#: [id number] ?? Attend Dr: Paxton Darnell MD ?Re10/03/24 ?Status: DEP SDC ? Location: HO.SSS ?Disch: ? ----- ------- SPEC : [id number] ?RECD: 10/03/24 ? STATUS: ??SOUT ? REQ NUM: [id number] ? LORELEI: 10/03/24 ? SUBM DR: Paxton Darnell MD ? ENTERED: ??10/03/24 ?SP TYPE: Surgical ? OTHR DR: Dina Cartagena MD ? ORDERED: ??HE Stain/3, Gross Micro L4/2 ? Diagnosis ?? A. ??Endometrium, polypectomy: ?- Disordered proliferative endometrium. ?- Two fragments of benign haphazard smooth muscle. ?- No atypia identified. ??See comment. ? B. ??Endometrium, curettage: ??Disordered proliferative endometrium; no atypia or ?? hyperplasia identified. ? Comment: ??The smooth muscle in part A may represent a leiomyoma. ?Clinical History Pre-Op Dx: ??Abnormal uterine and vaginal bleeding, unspecified Post-Op Dx: Endometrial polyp ?Microscopic Description A, B. ??Microscopic sections reviewed. ? Material Received ?? A. Endometrial polyp ?? B. EMC ? Gross Description Received in two parts. Part A: ??Received in formalin labeled ?endometrial polyp in a white cotton mesh suction sock device are multiple harrington and harrington-pink irregular shards of tissue ranging from 0.2-0.7 cm and aggregating 2.5 x 2.0 x 0.45 cm, submitted in toto in a cassette labeled A. Part B: ??Received in formalin labeled ?EMC on blood-stained Telfa are multiple fragments of congested and hemorrhagic harrington-pink and red-maroon tissue and scant blood, aggregating 3.0 x 2.5 x 0.5-0.8 cm, submitted in toto in cassettes B1-B3. ??CEDS This case was reviewed intradepartmentally. ? CONTINUED ON NEXT PAGE ----- ------- Name: Rita Mahoney ? Age/Sex: 44/F ? : 1980 Unit#: [id number] ?? Attend Dr: Paxton Darnell MD ?Re10/03/24 ?Status: DEP SDC ? Location: HO.SSS ?Disch: ? ----- ------- SPEC : [id number] ?RECD: 10/03/24-1020 ? STATUS: ??SOUT ? REQ NUM: [id number] ? LORELEI: 10/03/2486 ? SUBM DR: Paxton Darnell MD ? ENTERED: ??10/03/24 ?SP TYPE: Surgical ? OTHR DR: Dina Cartagena MD ? ORDERED: ??HE Stain/3, Gross Micro L4/2 ? Copies To: ?? Dina Cartagena MD ?? [facility] ?? [address] [facility] ?? [place] [address] ?? [phone] ?? Paxton Darnell MD ?? [facility] ?? [address] ?? [place] [address] ?? [phone] ----- ------- Signed (signature on file) Jean Carlos Zavala MD 10/07/24 8960 ? ----- ------- ? END OF REPORT ? us Generic External Data Provider LAB BLOOD ORDERAB LES Final Result [facility] [address] [place] [address] [phone] * HCG, Qualitative, Urine (10/03/2024 7:12 AM EST) Urine NEGATIVE NEGATIVE [facility] Comment:This test was develo ped to detect early . Falsenegative results may occur after the 5th - 7th week ofpregnancy when using this test method. If clinicallyindicated, consider a serum hCG. 10/03/2024 7:12 AM EST 10/03/2024 7:32 AM EST us Generic External Data Provider LAB URINE ORDERAB LES Final Result Performing Organization Address [facility] Co de Phone Number [facility] [address] [place] [phone] * (ABNORMAL) Basic Metabolic Panel, Fasting (09/25/2024 11:41 AM EST) Sodium 138 135 - 145 mmol/L [facility] Potassium 3.8 3.3 - 5.1 mmol/L [facility] Chloride 106 96 - 108 mmol/L [facility] Carbon Dioxide 27 22 - 29 mmol/L [facility] Anion Gap 9(L) 12 - 20 [facility] Urea Nitrogen (BUN) 11 9 - 16 mg/dL [facility] Creatinine, Serum 0.60 0.5 - 1.4 mg/dL [facility] Estimated Glomerular Filt Rate >60 [facility] Comment:Chronic Kidney Disea se: Estimated GFR < 60 mL/min/1.32y7Raspxy Kidney Disease: Estimated GFR < 15 mL/min/1.73m2 Glucose Fasting 78 60 - 99 mg/dL [facility] Calcium 8.4 8.4 - 10.2 mg/dL [facility] Blood Venous blood specimen / Unknown 09/25/2024 11:41 AM EST 09/25/2024 2:48 PM EST us Dina Cartagena MD LAB BLOOD ORDERABLES Final Re sult Performing Organization Address [facility]/ZIP Co de Phone Number [facility] [address] [place] [address] [phone] * (ABNORMAL) Vitamin D, 25-Hydroxy, Total, Immunoassay (09/25/2024 11:41 AM EST) Vitamin D 25-OH Total 26.9(L) >30 ng/mL [facility] Comment:Health Based Referen ce Values*< 20 ng/mL Rogkrtjci13-93 ng/mL Insufficient> 30 ng/mL Sufficient*Toshia SAUCEDA. N [...] ORDERABLES Final Re sult Performing Organization Address [facility] de Phone Number [facility] [address] [place] [phone] * Hepatic Function Panel (09/25/2024 11:41 AM EST) Bilirubin, Total 0.2 0.0 - 1.0 mg/dL [facility] Bilirubin, Direct <0.2 0.0 - 0.5 mg/dL [facility] Aspartate Amino Transferase 18 5 - 31 U/L [facility] Alanine Aminotransferase 15 0 - 31 U/L [facility] Total Protein 7.2 6.5 - 8.0 g/dL [facility] Albumin Level 3.8 3.5 - 5.0 g/dL [facility] Alkaline Phosphatase 71 39 - 117 U/L [facility] Blood Venous blood specimen / Unknown 09/25/2024 11:41 AM EST 09/25/2024 2:48 PM EST Dina Cartagena MD LAB BLOOD ORDERABLES Final Re sult Performing Organization Address [facility] Co de Phone Number [facility] [address] [place] [address] [phone] * Lipid Panel, Standard (09/25/2024 11:41 AM EST) Triglycerides 127 <150 mg/dL [facility] Comment:Desirable Triglyceri de: less than 150 mg/dLBorderline High Triglyceride 150-199 mg/dLHigh Triglyceride: 200-499 mg/dLVery High Triglyceride: greater than or equal to 5OO mg/dL Cholesterol 165 <200 mg/dL [facility] Comment:Desirable Cholestero l: less than 200 mg/dLBorderline High Cholesterol: 200-239 mg/dLHigh Cholesterol: greater than 239 mg/dL LDL Cholesterol Calculated 96 <100 mg/dL [facility] Comment:Desirable LDL: less than 100 mg/dLNear Optimal/Above Optimal LDL: 110- 129 mg/dLBorderline High LDL: 130-159 mg/dLHigh LDL: 160-189 mg/dLVery High LDL: greater than or equal to 190 mg/dL HDL Cholesterol 44 >40 mg/dL [facility] Comment:Desirable HDL: great er than 40 mg/dL Note: This HDL assay may give artificially low results in patients with liver disease. Blood Venous blood specimen / Unknown 09/25/2024 11:41 AM EST 09/25/2024 2:48 PM EST us Dina Cartagena MD LAB BLOOD ORDERABLES Final Re sult [facility] [address] [place] [phone] * US Pelvis Transvaginal (08/12/2024 3:20 PM EST) Only the most recent of2 resultswithin the time period is included. Anatomical Region Laterality Modality Pelvis Ultrasound 08/12/2024 3:20 PM EST Narrative 09/18/2024 5:43 AM EST ? [facility] ?[address] ?[place] [address] ? Ultrasound Report ? Signed ? Patient: Denzel,Rita ?MR#: [id number] ?? 87 ? : 1980 ?Acct:[id number] ? Age/Sex: 43 / F ?ADM Date: 08/12/24 ? Loc: HO.US ? Attending Dr: Paxton Darnell MD ? Ordering Physician: Paxton Darnell MD ?? Date of Service: 08/12/24 ?? Procedure(s): US pelvic and transvaginal ?? Accession Number(s): [id number] ? cc: Dina Cartagena MD; Paxton Darnell [...] ??Emely Carvalho MD ??09/18/2024 05:40 AM EST ?? RP ? Dictated By: ?Emely Carvalho MD ? Signed By: ?<Electronically signed by Emely Carvalho MD in OV> ? 09/18/24 0540 ? DD/ 1520 ? TD/TT: 08/12/24 1532 ? Automotive Software Engineer: ? Procedure Note Donotuseinterpreter, Image - 09/18/[address] [address] Ultrasound Report Signed Patient: Lyla Mahoney#: [id number] [birth year] : 1980Acct:[id number] Age/Sex: 43 / FADM Date: 08/12/24 Loc: HO.US Attending Dr: Paxton Darnell MD Ordering Physician: Paxton Darnell MD Date of Service: 08/12/24 Procedure(s): US pelvic and transvaginal Accession Number(s): [id number] cc: Dina Cartagena MD; Paxton Darnell MD [...] 09/18/24 0540 DD/ 1520 TD/TT: 08/12/24 1532 Automotive Software Engineer: us [facility] External Provider IMG US PROCEDURES Final Result * TSH with Reflex to Free T4 (08/07/2024 8:44 AM EST) Pathologist [facility] TSH reflex Free T4 0.85 0.32 - 4.0 uIU/mL [facility] 08/07/2024 8:44 AM EST 08/07/2024 8:47 AM EST Generic External Data Provider LAB BLOOD ORDERAB LES Final Result Performing Organization Address [facility] Co de Phone Number [facility] [address] [place] [phone] * Prolactin (08/07/2024 8:44 AM EST) Pathologist [facility] Prolactin 11.7 ng/mL [facility] Comment:Reference Range Fema les Non- 3.0-30.0 10.0-209.0 Postmenopausal 2.0-20.0THIS TEST WAS PERFORMED AT:[facility] [address] [phone] MEAD MD 08/07/2024 8:44 AM EST 08/07/2024 8:47 AM EST Generic External Data Provider LAB BLOOD ORDERAB LES Final Result Performing Organization Address [facility]/ZIP Co de Phone Number [facility] [address] [place] [phone] * CBC (08/07/2024 8:44 AM EST) Pathologist [facility] White Blood Count 9.3 4.8 - 10.8 X10*3/uL [facility] Red Blood Count 4.86 4.20 - 5.50 X10*6/uL [facility] Hemoglobin 13.5 12.0 - 16.0 g/dl [facility] Hematocrit 39.3 37.0 - 47.0 % [facility] Mean Corpuscular Volume 80.9 80.0 - 98.0 fL [facility] Mean Corpuscular Hemoglobin 27.8 27.0 - 33.0 pg [facility] Mean Corpuscular HGB Conc 34.4 31.0 - 35.0 g/dl [facility] Red Cell Distribution Width 15.5 11.0 - 16.0 % [facility] Platelet Count 269 160 - 400 X10*3/uL [facility] Mean Platelet Volume 10.1 9.4 - 12.3 fL [facility] NRBC Pct Auto 0.0 0.0 - 0.2 /100WBC [facility] NRBC Abs Auto 0.000 0.0 - 0.012 X10*3/uL [facility] 08/07/2024 8:44 AM EST 08/07/2024 8:47 AM EST us Generic External Data Provider LAB BLOOD ORDERAB LES Final Result [facility] [address] [place] [address] [phone] * hCG, Total, Quantitative (08/07/2024 8:44 AM EST) HCG Quantitative <2 mIU/mL [facility] Comment:Weeks post LMP Appro ximate hCG(Last Menstrual Period) Range (mIU/ml)3 - 4 weeks 9 - 1304 - 5 weeks 75 - 2,6005 - 6 weeks 850 - 20,8006 - 7 weeks 4000 - 100,2007 - 12 weeks 11,500 - 289,41331 - 16 weeks 18,300 - 137,44761 - 29 weeks (2nd trimester) 1,400 - 53,57050 - 41 weeks (3rd trimester) 940 - [...] Provider LAB BLOOD ORDERAB LES Final Result [facility] [address] [place] [phone] * Us Pelvis complete (07/22/2024) Anatomical Region Laterality Modality Pelvis Ultrasound us Kayla Garduno CNM IMG US PROCEDURES Final R esult * THINPREP TIS PAP AND HPV mRNA E6/E7, CT/NG, TRICH (05/25/2022 10:49 AM EDT) Chlamydia trachomatis RNA, TMA, Urogenital NOT DETECTED NOT DETECTED CONVERTED [facility] Clinical Information: NIL/NEG 04/2021/HX SOPHIA 2/3 IN 2017 CONVERTED [facility] COMMENT SEE COMMENT SARAHE D [facility] Comment: The analytical performance characteristics of this assay, when used to test SurePath(TM) specimens have been determined by [employer]. The modifications have not been cleared or approved by the FDA. This assay has been validated pursuant to the CLIA regulations and is used for clinical purposes. ?? For additional information, please refer to https://education.[employer]/faq/IKY527 (This link is being provided for information/ educational purposes only.) ?? COMMENT SEE COMMENT ELI Anaya [facility] Comment: EXPLANATORY NOTE: ? The Pap is [...] been evaluated with computer assisted technology. CONVERTED [facility] Field Representative/Health Education: SEE COMMENT [facility] Comment: WAC, CT(ASCP) CT screening location: [address] ??[address] HPV nRNA E6/E7 Not Detected Not Detected [facility] Comment: Methodology: Clam Grower-Mediated Amplification This assay detects E6/E7 viral messenger RNA (mRNA) from 14 high-risk HPV types (16,18,31,33,35,39,45,51,52,56,58,59,66,68). ? Cervical sources are required for HPV testing. If a vaginal source from a patient who has had a total hysterectomy with removal of cervix was ?? submitted, please contact the testing laboratory for alternative testing options. ?? For additional information, please refer to http://education.[employer]/faq/OZD395e2 (This link if provided for information/ educational [...] of this assay have been determined by [employer]. The modifications have not been cleared or approved by the FDA. This assay has been validated pursuant to the CLIA regulations and is used for clinical purposes. ?? For additional information, please refer to http://education.[employer]/ faq/Trichomonastma (This link is being provided for information/ educational purposes only.) ?? 05/25/2022 10:4 9 AM EDT Kayla Garduno CNM LAB PATHOLOGY ORDERABLES Final Result [facility] * Mammography Report 1 (05/18/2022 2:05 PM EDT) Anatomical Region Laterality Modality Breast Bilateral Mammography 05/18/2022 2:05 PM EDT Narrative 05/18/2022 4:00 PM EDT Refer to the Notes tab for result details [facility] Procedure: Mammography Report 1 Procedure Note ProviderGilmar MD - 11/20/2022 Refer to the Notes tab for result details [facility] Procedure: Mammography Report 1 us Dina Cartagena MD IMG BI PROCEDURES Final Resul t * HEPATITIS C AB W/REFL TO HCV RNA, QN, PCR (05/04/2021 10:41 AM EDT) HEPATITIS C ANTIBODY NON-REACT JOSEMANUEL NON-REACT JOSEMANUEL [facility] INDEX 0.02 <1.00 [facility] Comment: ?? HCV antibody was non-reactive. There is no laboratory ?? evidence of HCV infection. ?? In most cases, no further action is required. However, if recent HCV exposure is suspected, a test for HCV RNA (test code 27384) is suggested. ?? For additional information please refer to http://education.Worldcoo/faq/NVO15v8 (This link is being provided for informational/ educational purposes only.) ?? 05/04/2021 10:4 1 AM EDT us Kayla Garduno CNM HISTORICAL/NON ORDERABLE LABS Final Result [facility] [address] * HIV 1/2 ANTIGEN/ANTIBODY,FOURTH GENERATION W/RFL (05/04/2021 10:41 AM EDT) HIV-1/2 ANTIGEN AND ANTIBODIES, 4TH GENERATION W/ REFLEX NON-REACT JOSEMANUEL NON-REACT JOSEMANUEL [facility] Comment: HIV-1 antigen and HIV-1/HIV-2 [...] ? For additional information please refer to http://education.Worldcoo/faq/YMS030 (This link is being provided for informational/ educational purposes only.) ? The performance of this assay has not been clinically validated in patients less than 2 years old. ?? 05/04/2021 10:4 1 AM EDT us Kayla SARMIENTO LAB BLOOD ORDERABLES Odette chavis Result Performing Organization Address City/State/[facility] Co de Phone Number [facility] [address] from Last 3 Months or Most Recently Relevant to Health Maintenance Insurance [employer] C3 Care Teams Acute Dialysis Nurse Relationship Specialty Start Date End Date Dina Cartagena MD [address] [place] [phone] PCP - General Family Medicine 08/28/18 Laverne Mahoney Sales ConsultantRoom Maid 12/07/23
--- OUTSIDE RECORDS SUMMARY | 2024-10-17 15:55 | XMS_ITS | Encounter Summary ---
Author Organization [employer] Address [address] [facility] [address]t [place] [address] Care Team Providers Care Proposal Manager Writer Name Role Phone Dina Cartagena MD Primary Care Provider [phone] Encounter Details Date Type Department Care Team (Late Contact Info) Description 11/30/2022 Orders Only [facility] [address] [place] [address] Nargis Barrow MD [address] [place] [address] Abnormal uterine bleeding (Primary Dx) Social History [...] Description 10/23/2024 9:15 AM EST Office Visit [facility] [address] [place] [address] Dina Cartagena MD [address] [place] [address] documented as of this encounter Procedures Procedure [...] PM EDT) Influenza A PCR NEGATIVE Negative [facility] Influenza B PCR NEGATIVE Negative [facility] Resp Syncy Virus RNA Qual PCR NEGATIVE Negative [facility] SARS COV2 PCR NEGATIVE Negative [facility] Comment:All test results mus t be [...] use by authorized laboratories.Testing performed on the [employer] GeneXpert utilizingreal-time RT-PCR.All SARS CoV2 and positive influenza A/B results arereported to [facility]. 05/06/2023 4:29 PM EDT 05/06/2023 4:32 PM EDT [facility] Exter nal Provider LAB MICROBIOLOGY - GENERAL ORDERABLES Final Result [facility] [address] [place] [phone] * (ABNORMAL) Basic Metabolic Panel, Fasting (04/04/2023 10:38 AM EDT) Sodium 140 135 - 145 mmol/L [facility] Potassium 3.8 3.3 - 5.1 mmol/L [facility] Chloride 107 96 - 108 mmol/L [facility] Carbon Dioxide 25 22 - 29 mmol/L [facility] Anion Gap 12 12 - 20 [facility] Urea Nitrogen (BUN) 9 9 - 16 mg/dL [facility] Creatinine, Serum 0.67 0.5 - 1.4 mg/dL [facility] Estimated Glomerular Filt Rate >60 [facility] Comment:NOTE: For -Am erican individuals, multiply the result by 1.210.Chronic Kidney Disease: Estimated GFR < 60 mL/min/[id number] Kidney Disease: Estimated GFR < 15 mL/min/1.73m2 Glucose Fasting 58(LL) 60 - 99 mg/dL [facility] Comment:Critical value for t est(s):FBS Results called to and readback by: MARISEL Tadeo LPN Person calling:MARTHA Date:04/04/23Time:1610 Calcium 9.0 8.4 - 10.2 mg/dL [facility] 04/04/2023 10:3 8 AM EDT 04/04/2023 2:26 PM EDT Yong Naylor MD LAB BLOOD ORDERABLES Final Result Performing Organization Address City/[facility]/ZIP Co de Phone Number [facility] [address] [place] [phone] [phone] * Culture, Urine, Routine (12/19/2022 8:52 PM EDT) 12/19/2022 8:52 PM EDT 12/19/2022 8:52 PM EDT Comment:UACC Narrative [facility] - 12/21/2022 8:29 AM EDT Urine Culture No growth. Specimen Source: Urine clean catch [facility] Exter nal Provider LAB MICROBIOLOGY - GENERAL ORDERABLES Final Result Performing Organization Address City/[facility] Co de Phone Number [facility] [address] [place] [phone] * (ABNORMAL) Urinalysis, Complete, with Reflex to Culture (12/19/2022 8:26 PM EDT) Color Urine [place] [facility] Appearance Urine Hazy [facility] PH 5.0 5.0 - 9.0 [facility] Glucose Urine UA Negative Negative mg/dL [facility] Urine Blood Large (3+)(A) Negative [facility] Specific [place] - Urine 1.025 1.005 - 1.025 [facility] Urine Protein Trace Neg-Trace mg/dL [facility] Urine Ketones Negative Negative mg/dL [facility] Nitrite Urine Negative Negative [facility] Leukocyte Esterase Urine Negative Negative [facility] RBC Urine >20(A) 0 - 2 /HPF [facility] Urine WBC 6-10(A) 0 - 5 /HPF [facility] Urine Squamous Epithelial Cell 3-5 0 - 2 /HPF [facility] Urine Bacteria None Seen None Seen [facility] Hyaline Casts, Urine 0-2 0 - 2 /LPF [facility] 12/19/2022 8:26 PM EDT 12/19/2022 8:31 PM EDT Narrative [facility] - 12/19/2022 8:50 PM EDT [id number], Clean Catch [facility] External Provider LAB URI NE ORDERABLES Final Result Performing Organization Address [facility]/ZIP Co de Phone Number [facility] [address] [place] [phone] * HCG, Total, Quantitative (12/19/2022 8:21 PM EDT) HCG Quantitative <2 mIU/mL [facility] Comment:Weeks post LMP Appro ximate hCG(Last Menstrual Period) Range (mIU/ml)3 - 4 weeks 9 - 1304 - 5 weeks 75 - 2,6005 - 6 weeks 850 - 20,8006 - 7 weeks 4000 - 100,2007 - 12 weeks 11,500 - 289,77187 - 16 weeks 18,300 - 137,74433 - 29 weeks (2nd trimester) 1,400 - 53,49532 - 41 weeks (3rd trimester) 940 - 60,000The Samson B- hCG assay is used for the early detection ofpregnancy; it cannot be used to diagnose any conditionunrelated to . If a B-hCG level is not supportedby the clinical evidence, results should be confirmed by analternative method (qualitative urine hCG, for example). 12/19/2022 8:21 PM EDT 12/19/2022 8:24 PM EDT [facility] External Provider LAB BLO OD ORDERABLES Final Result Performing Organization Address [facility]/ZIP Co de Phone Number [facility] [address] [place] [phone] * Lipase (12/19/2022 8:21 PM EDT) Lipase 28 8 - 78 U/L [facility] 12/19/2022 8:21 PM EDT 12/19/2022 8:24 PM EDT us [facility] External Provider LAB BLO OD ORDERABLES Final Result [facility] [address] [place] [phone] * (ABNORMAL) Basic Metabolic Panel (12/19/2022 8:21 PM EDT) Sodium 142 135 - 145 mmol/L [facility] Potassium 4.1 3.3 - 5.1 mmol/L [facility] Chloride 107 96 - 108 mmol/L [facility] Carbon Dioxide 26 22 - 29 mmol/L [facility] Anion Gap 13 12 - 20 [facility] Urea Nitrogen (BUN) 15 9 - 16 mg/dL [facility] Creatinine, Serum 0.75 0.5 - 1.4 mg/dL [facility] Creatinine Clr Calc Pharmacy 92.5 [facility] Comment:Provided height and weight: 152.4 cm,81.647 kg.eGFR (calculated from the MDRD study equation) and eCrCl(calculated from the Cockcroft-Gault equation) are based ondifferent parameters and may not yield comparable results.If eCrCl result is absurd, please check patient'sheight/weight. Estimated Glomerular Filt Rate >60 [facility] Comment:NOTE: For -Am erican individuals, multiply the result by 1.210.Chronic Kidney Disease: Estimated GFR < 60 mL/min/1.62e6Eymznf Kidney Disease: Estimated GFR < 15 mL/min/1.73m2 Glucose 118(H) 60 - 115 mg/dL [facility] Calcium 9.4 8.4 - 10.2 mg/dL [facility] 12/19/2022 8:21 PM EDT 12/19/2022 8:24 PM EDT [facility] External Provider LAB BLO OD ORDERABLES Final Result Performing Organization Address [facility]/ZIP Co de Phone Number [facility] [address] [place] [phone] * Hepatic Function Panel (12/19/2022 8:21 PM EDT) Bilirubin, Total 0.2 0.0 - 1.0 mg/dL [facility] Bilirubin, Direct <0.2 0.0 - 0.5 mg/dL [facility] Aspartate Amino Transferase 16 5 - 31 U/L [facility] Alanine Aminotransferase 17 0 - 31 U/L [facility] Total Protein 7.0 6.5 - 8.0 g/dL [facility] Albumin Level 4.0 3.5 - 5.0 g/dL [facility] Alkaline Phosphatase 102 39 - 117 U/L [facility] 12/19/2022 8:21 PM EDT 12/19/2022 8:24 PM EDT [facility] External Provider LAB BLO OD ORDERABLES Final Result Performing Organization Address [facility] Co de Phone Number [facility] [address] [place] [phone] * Slide Review (12/19/2022 8:21 PM EDT) Slide Review VERIFIED [facility] 12/19/2022 8:21 PM EDT 12/19/2022 8:24 PM EDT Result [facility] External Provider LAB BLO OD ORDERABLES Final Result Performing Organization Address [facility] Co de Phone Number [facility] [address] [place] [phone] * Prothrombin Time-INR (12/19/2022 8:21 PM EDT) Pathologist [facility] Prothrombin Time 10.4 10.0 - 13.1 SEC [facility] INTERNATIONAL NORM RATIO 0.9 0.9 - 1.1 [facility] Comment:INTERNATIONAL NORMAL IZED RATIO (INR) [...] PM EDT 12/19/2022 8:24 PM EDT us [facility] External Provider LAB BLO OD ORDERABLES Final Result Performing Organization Address City/State/[facility] Co de Phone Number [facility] [address] [place] [phone] * (ABNORMAL) CBC auto differential (12/19/2022 8:21 PM EDT) [facility] White Blood Count 13.0(H) 4.8 - 10.8 X10*3/uL [facility] Red Blood Count 5.27 4.20 - 5.50 X10*6/uL [facility] Hemoglobin 14.6 12.0 - 16.0 g/dl [facility] Hematocrit 43.1 37.0 - 47.0 % [facility] Mean Corpuscular Volume 81.8 80.0 - 98.0 fL [facility] Mean Corpuscular Hemoglobin 27.7 27.0 - 33.0 pg [facility] Mean Corpuscular HGB Conc 33.9 31.0 - 35.0 g/dl [facility] Red Cell Distribution Width 15.2 11.0 - 16.0 % [facility] Platelet Count 220 160 - 400 X10*3/uL [facility] Mean Platelet Volume 10.4 9.4 - 12.3 fL [facility] Neutrophils Percent Auto 58.1 45 - 73 % [facility] Imm Gran Pct Auto 0.5(H) 0.0 - 0.4 % [facility] Lymphocytes Percent Auto 32.5 20 - 40 % [facility] Monocytes Percent Auto 5.6 2 - 11 % [facility] Eosinophils Percent Auto 2.8 0 - 4 % [facility] Basophils Percent Auto 0.5 0 - 2 % [facility] NRBC Pct Auto 0.0 0.0 - 0.2 /100WBC [facility] Neutrophils Absolute Auto 7.6 2.0 - 8.3 x10*3/uL [facility] Imm Gran Abs Auto 0.06(H) 0.00 - 0.03 X10*3/uL [facility] Lymphocytes Absolute Auto 4.2 1.2 - 4.9 X10*3/uL [facility] Monocytes Absolute Auto 0.7 0.1 - 1.2 X10*3/uL [facility] Eosinophils Absolute Auto 0.4 0.0 - 0.4 X10*3/uL [facility] Basophils Absolute Auto 0.1 0.0 - 0.2 X10*3/uL [facility] NRBC Abs Auto 0.000 0.0 - 0.012 X10*3/uL [facility] 12/19/2022 8:21 PM EDT 12/19/2022 8:24 PM EDT us [facility] External Provider LAB BLO OD ORDERABLES Edited Result - Final [facility] [address] [place] [phone] documented in this encounter Visit Diagnoses Diagnosis Abnormal uterine bleeding- Primary Unspecified disorder of menstruation and other abnormal bleeding from female genital tract documented in this encounter Care Teams Proposal Manager Writer Relationship Specialty Start Date End Date Dina Cartagena MD [address] [place] [phone] PCP - General Family Medicine 08/28/18 Laverne Mahoney Manager SafeSole Cementer 12/07/23 documented as of this encounter
--- OUTSIDE RECORDS SUMMARY | 2024-10-17 15:55 | XMS_ITS | Clinical Summary ---
Author Organization [facility] Address [address] [place] [address] Care Team Providers Care Quality Assurance Representative Name Role Phone Unavailable Primary Care Provider Unavailabl e Social History Tobacco Use Types Packs/Day Years Used Date Smoking Tobacco: Never Assessed Comments Unknown Sex and Gender Information Value Date Recorded Sex Assigned at Not on file Legal Sex Female 10:48 PM EST Gender Identity Not on file Sexual Orientation [...] patient's age to complete this topic Meningococcal B Vacine Aged Out No lo nger eligible based on patient's age to complete [...]
--- OUTSIDE RECORDS SUMMARY | 2024-10-17 15:55 | XMS_ITS | Encounter Summary ---
Author Organization [employer] Address [address] [place] [address] Care Team Providers Care Oil Rigger Name Role Phone Dina Cartagena MD Primary Care Provider [phone] Reason for Visit * Reason Comments Care Coordination CHW outreach for SDO H PT-1 and food needs-referral completed Encounter Details Date Type Department Care Team (Latest Contact Info) Description 09/18/2024 Patient Outreach [facility] [address] [place], [place] [phone] Dina Cartagena MD [address] [place] [address] Care Coordination (CHW outreach for SDOH PT-1 [...] Wednesdays, and Walk-In Urgent Care Located in [facility] of [facility].Patient provided with after-hours line for [facility], , which offer night time triage serviceand option to transfer to front desk monitor provider if needed. documented in this encounter Plan of Treatment Upcoming Encounters Date Type Department Care Team (Late st Contact Info) Description 10/23/2024 9:15 AM EST Office Visit [facility] [address] [place] [address] Dina Cartagena MD [address] [place] [phone] documented as of this encounter Visit Diagnoses Not on filedocumented in this encounter Care Teams Oil Rigger Relationship Specialty Start Date End Date Dina Cartagena MD [address] [place] [address] PCP - General Family Medicine 08/28/18 Laverne Mahoney Bakery DelivererTower Equipment Repairer 12/07/23 documented as of this encounter
--- OUTSIDE RECORDS SUMMARY | 2024-10-17 15:55 | XMS_ITS | Encounter Summary ---
Author Organization [employer] Address [address] [facility] 7 [place] [address] Care Team Providers Care Communications Writer Name Role Phone Dina Cartagena MD Primary Care Provider [phone] Reason for Visit * Reason Comments Pre-visit Planning SDOH positive, Tobac co screening negative. Encounter Details Date Type Department Care Team ([facility] Contact Info) Description 09/18/2024 Patient Outreach [facility] [address] [place], [place] [phone] Dina Cartagena MD [address] [place] [address] Pre-visit Planning (SDOH positive, Tobacco screening negative. [...] t he electric, gas, oil or water [employer] threatened to shut off services in your [...] Description 10/23/2024 9:15 AM EST Office Visit [facility] [address] [place] [address] Dina Cartagena MD [address] [place] [address] documented as of this encounter Visit Diagnoses Not on filedocumented in this encounter Care Teams Communications Writer Relationship Specialty Start Date End Date Dina Cartagena MD [address] [place] [address] PCP - General Family Medicine 08/28/18 Laverne Mahoney It Corporate RecruiterManager Packaging 12/07/23 documented as of this encounter
--- OUTSIDE RECORDS SUMMARY | 2024-10-17 15:55 | XMS_ITS | Data Portability ---
Author Organization [facility]O [facility] [address] Address [address] [place] [address] Assessment No assessment recorded. Plan of Treatment [...] Time 3 OC- Physical completed GABRIEL Gut[facility] 08/04/2023 12:07:45 Imaging Results None recorded. [...] SNOMED-CT Code Diagnosis ICD10 Code Diagnosis Note [id number] [place] [id number] [facility] [address] [place] [address] 08/04/2023 10:58:12 08/04/2023 13:08:53 Tuberculosis screening [id number] Z11.1 History an d physical examination, pre-employment [id number] Z02.1 Health Concerns Section Related Observation LastModified by Organization Detai ls LastModified Time None Recorded Concern Status LastModified by Organization Details LastModified Time None Recorded Advance Directives Directive None Recorded Payers Encounter Date Sequence Insurance Name Policy Number Policy Sena Covered Member ID Sena Member ID Guarantor Name 08/04/2023 [place] [facility] Rita Mahoney OBGyliseth Episode No OBEpisode recorded.
== END 2024-10-17 16:05 | disposition home or self-care (01) ==
LOC: HO.HWS 14:46
PROVIDERS: PCP Pediatrics; Visit Provider Obstetrics & Gynecology
DX: N93.9 Abnormal uterine and vaginal bleeding, unspecified (principal)
CPT/HCPCS: 99213

== ENCOUNTER → 2024-10-17 14:46 | Outpatient (BNVA) | payer MEDICAID, SELFPAY | PROVIDERS: PCP Pediatrics; Visit Provider Obstetrics & Gynecology | DX: N93.9 Abnormal uterine and vaginal bleeding, unspecified (principal) | CPT/HCPCS: 99212 ==